=== PATIENT | female | born 1945 | race Caucasian/White ===

== ENCOUNTER 2021-08-01 14:46 | Inpatient (IN) | payer MEDICARE, MEDICAID ==
[~2021-08-01] VITALS: Ht 160 cm; Wt 60.1 kg
[2021-08-01] MEDS ORDERED: LACT1CAP6 PO (16:49)
[2021-08-01] MEDS ORDERED: IBUP400T18 PO (16:49)
[2021-08-01] MEDS ORDERED: MUPI15CR8 TP (16:49)
[2021-08-01] MEDS ORDERED: MINE50OI TP (16:49)
[2021-08-01] MEDS ORDERED: LEVO75TA5 PO (16:49)
[2021-08-01] MEDS ORDERED: OLAN5TAB67 PO (16:49)
[2021-08-02] MEDS ORDERED: OLANZapine 5 MG TABLET PO PRN ×2 (16:45→23:00)
[2021-08-02] MEDS ORDERED: MAGNESIUM HYDROXIDE 2,400 MG/30 ML ORAL.SUSP. PO PRN (16:45)
[2021-08-02] MEDS ORDERED: MAG HYDROX/AL HYDROX/SIMETH 30 ML ORAL.SUSP PO PRN (16:45)
[2021-08-02] MEDS ORDERED: METHYL SALICYLATE/MENTHOL TOPICAL OINTMENT 57GM TUBE. TP PRN (16:45)
[2021-08-02] MEDS ORDERED: IBUPROFEN 600 MG TABLET. PO PRN (16:45)
[2021-08-02 17:24] VITALS: BP 126/71
--- NOTE | 2021-08-02 18:19 | NUR ---
Admission Note with Justification for Admission to [facility] Patient admitted to [facility] for protective oversight for emergency stabilization of acute psychiatric crisis. Pt admitted from: [facility] Mode of arrival: POV Accompanied By: Family Precipitating behaviors that initiated intake and admission: Agitation, attempting to elope, resisting cares/ADLs, yelling at staff, layering clothing Description of failure of out patient attempts at stabilization in previous setting list behavior and medication trials: Daily IM Zyprexa, outpatient psych, redirection Behaviors and assessment findings upon admission: Pt highly agitated and confused. She refuses assessments and will not answer staff questions d/t being fixated on her belongings being locked and secured in her closet. She further refuses assessment because "I will only talk to a Dr." She is very defiant and will not follow staff instructions. Pt has significant cellulitis on her BLE that is weeping and bleeding. Pictures taken, wound consult entered. Pt highly somatic, when her LLE is touched in the slightest she will scream loudly and hysterically and claim she is being hurt because she has a "broken pelvis." Per daughter/DPOA, pt has hx of pelvic fx that was discovered February 2021 but radiology report suggests that the fx is "old and resolved." Pt is not receptive to education regarding the unit and procedures. Plan of care continues, will pass to next shift. Plan: Admit for protective oversight for adjustment and stabilization of medications, behaviors and mood. Intense treatment regimen including groups, medication adjustments, therapy, consistent regimen for ADL's, self care, and sleep hygiene. Daily monitoring by Inpatient staff, Psychiatry, and Medical Physician.
--- NOTE | 2021-08-02 18:50 | NUR ---
Pt highly agitated while dressings are applied to the RLE wounds. She keeps scratching vigorously at her legs, skin flakes flying everywhere. She screams in a garbled language when agitated. Per daughter, pt does not speak any languages other than Gabonese.
[2021-08-02] MEDS ORDERED: FLU VACC QUAD 21-22 (6MOS+) PF 0.5 ML SYRINGE. VAX IM ONE (19:00)
[2021-08-02 19:12] LABS: BASO % 0 % (0-3); EOS # 0.1 x10^3/uL (0.0-0.7); EOS % 2 % (0-3); HEMATOCRIT 34.1 % (36.0-47.0); HEMOGLOBIN 11.4 g/dL (12.0-15.5); LYMPH # 1.5 x10^3/uL (1.0-4.8); LYMPH % 20 % (24-48); MEAN CORPUSCULAR HEMOGLOBIN 30 pg (25-35); MEAN CORPUSCULAR HGB CONC 33 g/dL (31-37); MEAN CORPUSCULAR VOLUME 89 fL (79-100); MONO # 0.7 x10^3/uL (0.0-1.1); MONO % 9 % (0-9); NEUT # 5.3 x10^3uL (1.8-7.7); NEUT % 69 % (31-73); PLATELET COUNT 313 x10^3/uL (140-400); RED BLOOD COUNT 3.83 x10^6/uL (3.50-5.40); WHITE BLOOD COUNT 7.7 x10^3/uL (4.0-11.0)
[2021-08-02 19:26] LABS: ALBUMIN 3.3 g/dL (3.4-5.0); GFR 53.8; POTASSIUM 3.8 mmol/L (3.5-5.1); TOTAL BILIRUBIN 0.2 mg/dL (0.2-1.0); TOTAL PROTEIN 6.6 g/dL (6.4-8.2)
[2021-08-02] MEDS: MINERAL OIL/PETROLATUM TOPICAL CREAM 113GM JAR. TP SCH (20:32)
--- NOTE | 2021-08-02 21:09 | EKG ---
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
--- NOTE | 2021-08-02 21:55 | PDOC ---
Exam Note: Prasanna Note: Please also refer to the separate dictated note~for this date of service dictated separately.~Patient seen individually. Discussed the patient with Nursing staff reviewed the chart.~Reviewed interim history and current functioning. Reviewed vital signs,~Labs/ Radiology~and current medications noted below. Continue current treatment with the changes noted in the dictated addendum note Assessment: Vital Signs/I&O: Vital Signs Date Time Temp Pulse Resp B/P (MAP) Pulse Ox O2 Delivery O2 Flow Rate FiO2 08/02/21 17:24 97.0 65 19 126/71 (89) 94 Labs: Laboratory Tests Test 08/02/21 18:51 White Blood Count 7.7 x10^3/uL (4.0-11.0) Red Blood Count 3.83 x10^6/uL (3.50-5.40) Hemoglobin 11.4 g/dL (12.0-15.5) L Hematocrit 34.1 % (36.0-47.0) L Mean Corpuscular Volume 89 fL (79-100) Mean Corpuscular Hemoglobin 30 pg (25-35) Mean Corpuscular Hemoglobin Concent 33 g/dL (31-37) Red Cell Distribution Width 16.0 % (11.5-14.5) H Platelet Count 313 x10^3/uL (140-400) Neutrophils (%) (Auto) 69 % (31-73) Lymphocytes (%) (Auto) 20 % (24-48) L Monocytes (%) (Auto) 9 % (0-9) Eosinophils (%) (Auto) 2 % (0-3) Basophils (%) (Auto) 0 % (0-3) Neutrophils # (Auto) 5.3 x10^3uL (1.8-7.7) Lymphocytes # (Auto) 1.5 x10^3/uL (1.0-4.8) Monocytes # (Auto) 0.7 x10^3/uL (0.0-1.1) Eosinophils # (Auto) 0.1 x10^3/uL (0.0-0.7) Basophils # (Auto) 0.0 x10^3/uL (0.0-0.2) Erythrocyte Sedimentation Rate 14 (0-25) D-Dimer (Shirley) 0.93 mg/L (0.00-0.50) H Sodium Level 142 mmol/L (136-145) Potassium Level 3.8 mmol/L (3.5-5.1) Chloride Level 106 mmol/L (98-107) Carbon Dioxide Level 27 mmol/L (21-32) Anion Gap 9 (6-14) Blood Urea Nitrogen 18 mg/dL (7-20) Creatinine 1.0 mg/dL (0.6-1.0) Estimated GFR (Cockcroft-Gault) 53.8 BUN/Creatinine Ratio 18 (6-20) Glucose Level 123 mg/dL (70-99) H Calcium Level 9.0 mg/dL (8.5-10.1) Magnesium Level 2.0 mg/dL (1.8-2.4) Total Bilirubin 0.2 mg/dL (0.2-1.0) Aspartate Amino Transferase (AST) 13 U/L (15-37) L Alanine Aminotransferase (ALT) 17 U/L (14-59) Alkaline Phosphatase 101 U/L (46-116) Total Protein 6.6 g/dL (6.4-8.2) Albumin 3.3 g/dL (3.4-5.0) L Albumin/Globulin Ratio 1.0 (1.0-1.7) Current Medications: I have reviewed the current psychotropics carefully including drug interactions. Risk benefit ratio favors no change other than as noted in my dictated progress note. Diagnosis: Problems: (1) Schizoaffective disorder, bipolar type ENOCH YBARRA MD Aug 02, 2021 21:55
--- NOTE | 2021-08-02 23:59 | NUR ---
Patient is in the [facility] on assumption of care, walking back and forth with her walker. When this nurse went to assess the patient and asked her name, she stated "What's your name?" in a sarcastic tone of voice. When this nurse answered and again asked the patient for her name, she stated "Well, aren't you stupid if you don't know my name? What kind of dumbass are you?" Communicating with patient is very difficult due to her being very IGIUGIG as well as resistant to answering any questions posed to her. Patient removed her wound dressing that the day shift RN had placed. When this nurse offered a new dressing, patient declined, demanding "No gauze, I only want bandaids." This nurse attempted to explain to patient that normal sized bandaid would not cover the area, and offered a foam dressing. She refused. Patient later asked for some ibuprofen, and took it whole without issue.
--- NOTE | 2021-08-03 03:58 | NUR ---
Patient continued to pace the west hallway back and forth, stopping to tap on the nurses station window every so often to ask about going to the chapel, and making snarky comments to staff. She demanded to see a doctor, asking "So, when will I see the doctor for my legs? No one has even bothered to look at them." This nurse told the patient that the medical doctor rounds in the morning, and reminded her that both myself and the day shift RN had looked at her legs and attempted to clean and dress them, and that she had refused. She stated "Well, if you would look at the [facility] pictures, you would see. If you look at my legs right now, you can see that I took care of it myself with just a washcloth. All the dirt is gone now." This nurse informed the patient that I had looked at the photos and offered several times to clean and redress the patient's wounds, and that a wound care consult had been placed. Patient had indeed, "exfoliated" her lower legs, irritating the wounds that are already present. Offered her the foam bandages again, and she again stated "I don't want no gauze, it's too much stuff on my legs." This nurse explained that the foam bandages are basically a large bandaid, and patient agreed to allow this nurse to place them on her. She went to her room and laid in bed for approximately 45 minutes, and is now up again, walking back and forth in the halls. Will continue to monitor.
[2021-08-03] MEDS: LEVOTHYROXINE 75 MCG TABLET PO SCH (05:07)
[2021-08-03 06:24] VITALS: BP 137/78
[2021-08-03] MEDS: LACTOBACILLUS RHAMNOSUS GG 1 CAPSULE. PO SCH (09:00)
[2021-08-03] MEDS: MINERAL OIL/PETROLATUM TOPICAL CREAM 113GM JAR. TP SCH (09:00)
[2021-08-03] MEDS ORDERED: MUPIROCIN 2% TOPICAL OINTMENT 22GM TUBE. TP SCH (09:00)
--- NOTE | 2021-08-03 12:37 | RAD ---
EXAM: Pelvis, single view. HISTORY: Fracture COMPARISON: 03/18/2021 FINDINGS: A frontal view of the pelvis is obtained. There is slight callus formation surrounding a mi ldly displaced fractures involving the right inferior pubic ramus and anterior pubic bone. There is s clerosis involving the right sacrum likely due to partial healing of a previously demonstrated sacral fracture. There is lumbar scoliosis and degenerative change throughout the lumbar spine. There are s urgical clips within the pelvis. There is suspected bone demineralization. IMPRESSION: 1. Callus formation surrounding suspected healing inferior right pubic ramus and anterior right pubic bone fractures. 2. Suspected healing or healed right sacral fracture. 3. Scoliosis and degenerative change involving the visualized lumbar spine, not formally assessed on this exam. 4. Bone demineralization. Electronically signed by: Johanny Cobian MD (08/03/2021 12:34 PM) [id number]
[2021-08-03 13:17] LABS: THYROID STIM HORMONE (TSH) 105.9 uIU/mL (0.358-3.740)
--- NOTE | 2021-08-03 14:33 | NUR ---
RN Day Shift Note: Pt presents with an assertive/aggravated/demanding affect. Pt makes her thoughts and concerns known to staff. Pt has continuously asked throughout the shift when the Doctor is coming to look at her legs. Pt has been told, he will be coming today, but we do not know what time and we will let her known as soon as he is here. Pt showed me her legs and reported that she had cleaned them up. Pt is noted to spend time walking the hallway and at times knocks on the nurses station assertively, leaning towards aggressively to ask when the doctor is coming. Pt spoke with her daughter 3 times today on the phone and her son one time. It is noted that when pt was on phone with daughter she was yelling at her throughout the conversation. Pt stated to her daughter on the phone, "I don't like the nurses, I don't like the food, but I like the psychiatrist." Later pt requested to call her daughter for the 3rd time because she wanted to apologize to her. Pt called and apologized. When speaking to pt, she repeatedly says, "what?" to staff. Pt continuously tells staff she cannot hear us and we will repeat ourselves. Pt speaks with an undetermined accent on occasion when she gets more animated or excitable. Pt's Vitals are WNL. Pt slept zero hours last night. Pt is not medication compliant and refused all medications. Pt was very adamant that she does not want to take any medications. Will continue to monitor.
[2021-08-03 16:12] VITALS: BP 116/60
[2021-08-03 17:56] LABS: CLARITY,URINE CLOUDY; COLOR,URINE YELLOW
[2021-08-03 17:57] LABS: BACTERIA,URINE MANY /HPF (0-FEW); BILIRUBIN,URINE NEG (NEG); GLUCOSE,URINE NEG (NEG); NITRITE,URINE POS (NEG); SQUAMOUS EPITHELIAL CELL,UR FEW /LPF; UROBILINOGEN,URINE 0.2 mg/dL (0.2 mg/dL)
[2021-08-03] MEDS: AMMONIUM LACTATE 12% TOPICAL LOTION 226GM BOTTLE. TP SCH (19:28)
[2021-08-03] MEDS ORDERED: MINERAL OIL/PETROLATUM TOPICAL CREAM 113GM JAR. TP PRN (19:30)
[2021-08-03] MEDS: MIRTAZAPINE 7.5 MG TABLET. PO SCH (20:42)
[2021-08-03] MEDS: DIVALPROEX 125 MG CAP.SPRINK PO SCH (20:42)
[2021-08-03] MEDS: ACETAMINOPHEN 325 MG TABLET PO PRN (21:17)
--- NOTE | 2021-08-03 23:24 | CONS ---
DATE OF CONSULTATION: 08/03/2021 REASON FOR CONSULTATION: Medical management. HISTORY OF PRESENT ILLNESS: The patient is a 75-year-old female patient, a resident at [facility] who admitted to this facility on account of being agitated, attempting to elope, resisting cares and ADLs, yells at staff, "Get away from me," layering clothes, all this in a background of schizoaffective disorder, bipolar with psychosis. PAST MEDICAL HISTORY: Significant for hypothyroidism, cellulitis, bilateral lower extremity lymphedema, recurrent falls, sacral fracture, muscle weakness. PAST PSYCHIATRIC HISTORY: Significant for bipolar disorder, schizophrenia, and dementia. PAST SURGICAL HISTORY: Significant for total abdominal hysterectomy, bilateral salpingo-oophorectomy. ALLERGIES: She has no known drug allergies. MEDICATIONS: She is currently on the following medication: She is on ibuprofen 600 mg every 6 hours, olanzapine 5 mg every 4 hours, lactobacillus acidophilus for probiotic 1 capsule once a day, levothyroxine sodium 75 mcg once a day, mupirocin cream apply topically daily, Aquaphor healing ointment apply topically twice a day. FAMILY HISTORY: Noncontributory. SOCIAL HISTORY: She is a resident at [facility]. She has grownup children. According to her, she does not smoke, drink alcohol, or use recreational drugs. PHYSICAL EXAMINATION: GENERAL: When I examined her this afternoon, she was sitting comfortably in her chair in no apparent respiratory distress. She was pale, but no jaundice, cyanosis or thyromegaly. No jugular venous distention. No limb edema. VITAL SIGNS: Her heart rate was 79, blood pressure is 137/78, temperature was 97.2, respiratory rate was 18 and oxygen saturation was 95% on room air. HEAD, EYES, EARS, NOSE, AND THROAT: Normocephalic, atraumatic. NECK: Supple. HEART: Normal first and second heart sounds, no gallop or murmur. CHEST: Clear to auscultation, no crepitation or rhonchi. ABDOMEN: Distended, soft, nontender. NEUROLOGIC: She was hard of hearing, but otherwise all her cranial nerves intact. She moves extremities without difficulty. She ambulates with a walker. EXTREMITIES: Examination of both lower extremities showed no clubbing or cyanosis. She has bilateral lower extremity lymphedema that extends above the knee joint level. She has also some open skin areas on the outer aspect of right leg covered with dressing. LABORATORY DATA: Her lab work showed a white cell count of 7700, hemoglobin 11, hematocrit 34, MCV 89, and platelet count of 313,000 with normal manual differential. Her chemistry showed a serum sodium of 142, potassium 3.8, chloride 106, bicarbonate 27. Her anion gap was 9, BUN 18, creatinine 1, estimated GFR was 53 mL per minute. Her glucose 123, calcium was 9, magnesium 2. Her serum iron was 48. Serum TIBC was 330 and iron saturation was 15. Her total bilirubin, AST, ALT, alkaline phosphatase were normal. Total protein 6.6, albumin 3.3. Her serum triglycerides 116, total cholesterol was 161, LDL cholesterol was 74, VLDL was 23, HDL cholesterol was 64 with a cholesterol to HDL cholesterol ratio was 2 and TSH was 105.9, which is extremely high. Her x-ray of the pelvis showed callus formation surrounding suspected healing of the inferior right pubic ramus and anterior right pubic bone fracture. She also has suspected healing or healed right sacral fracture, scoliosis and degenerative changes involving the visualized lumbar spine, not formally assessed this exam and bone demineralization. ASSESSMENT: In summary, this is a 75-year-old female patient, a resident at [facility], who was admitted to this facility on account of being agitated, attempting to elope, resisting to care and ADLs, yells at staff, "Get away from me," layering closed; all this in a background of schizoaffective disorder, bipolar with psychosis. Medically, the patient has severe hypothyroidism with a TSH of 105. It is difficult to know whether she is noncompliant with her medications or she is on adequate dose of levothyroxine. PLAN: My plan is to check her, T3, T4, free T4 and if they are all low, we will make sure that the patient gets it in time, usually an hour before breakfast and repeat her labs again in one week's time. She has severe bilateral lower extremity lymphedema with some open skin areas with dry skin. The dryness can be treated with AmLactin or Lac-Hydrin. I will definitely consult [facility] team to evaluate her and she might eventually benefit from lymphedema wrap. Thank you, Dr. Alan for allowing me to participate in the care of this patient. AMM/FABIOI DR: Beny TID: [id number]
--- NOTE | 2021-08-03 23:59 | NUR ---
Patient is in her room on assumption of care, sitting on the side of her bed. She is much more pleasant in her interactions as opposed to last evening. She was compliant with assessments, but continues to be suspicious of medications unless she specifically asks for them. Patient scheduled to receive a shower this evening, so she was premedicated with PRN Zydis d/t her resistant behaviors throughout all of last NOC shift. Crushed and hidden in between the two halves of a cheese cracker. Patient consumed it without issue. Cooperative with shower and care. Patient asked if she liked to drink hot tea before bed, and she answered "Yes, but no sugar or nothing, just plain." New medications prescribed by were crushed and melted into the tea, and patient drank all of it. She asked for assistance to lift her legs into the bed, and requested PRN Tylenol for bilateral leg pain. PRN was taken whole, with good effect. Patient appears to be sleeping comfortably at present time. Will continue to monitor.
[2021-08-04] MEDS: LEVOTHYROXINE 75 MCG TABLET PO SCH (05:06)
[2021-08-04 05:38] LABS: THYROXINE 1.2 ug/dL (4.5-12.0)
[2021-08-04 06:26] VITALS: BP 147/81
[2021-08-04] MEDS: risperiDONE ODT 0.5 MG TAB.RAPDIS. PO SCH (09:00)
[2021-08-04] MEDS: LACTOBACILLUS RHAMNOSUS GG 1 CAPSULE. PO SCH (09:00)
[2021-08-04] MEDS: AMMONIUM LACTATE 12% TOPICAL LOTION 226GM BOTTLE. TP SCH ×3 (09:00→21:00)
--- NOTE | 2021-08-04 10:32 | PDOC ---
Exam Note: Prasanna Note: Late entry for 08/03/21. Please also refer to the separate dictated note~for this date of service dictated separately.~Patient seen individually. Discussed the patient with Nursing staff reviewed the chart.~Reviewed interim history and current functioning. Reviewed vital signs,~Labs/ Radiology~and current medicat ions noted below. Continue current treatment with the changes noted in the dictated addendum note Assessment: Vital Signs/I&O: Vital Signs Date Time Temp Pulse Resp B/P (MAP) Pulse Ox O2 Delivery O2 Flow Rate FiO2 08/04/21 06:26 97.6 76 20 147/81 (103) 96 Room Air I & O 08/03/21 08/03/21 08/04/21 15:00 23:00 07:00 Intake Total 300 ml 300 ml Balance 300 ml 300 ml Labs: Laboratory Tests Test 08/03/21 15:40 08/04/21 07:34 Urine Collection Type Unknown Urine Color Yellow Urine Clarity Cloudy Urine pH 6.5 Urine Specific [place] 1.025 Urine Protein Neg (NEG-TRACE) Urine Glucose (UA) Neg mg/dL (NEG) Urine Ketones (Stick) Neg mg/dL (NEG) Urine Blood Trace (NEG) Urine Nitrite Pos (NEG) Urine Bilirubin Neg (NEG) Urine Urobilinogen Dipstick 0.2 mg/dL (0.2 mg/dL) Urine Leukocyte Esterase Neg (NEG) Urine RBC 1-2 /HPF (0-2) Urine WBC 11-20 /HPF (0-4) Urine Squamous Epithelial Cells Few /LPF Urine Bacteria Many /HPF (0-FEW) Free Thyroxine 0.36 ng/dL (0.76-1.46) L Current Medications: Meds: Laboratory Tests Test 08/03/21 15:40 08/04/21 07:34 Urine Collection Type Unknown Urine Color Yellow Urine Clarity Cloudy Urine pH 6.5 Urine Specific [place] 1.025 Urine Protein Neg Urine Glucose (UA) Neg mg/dL Urine Ketones (Stick) Neg mg/dL Urine Blood Trace Urine Nitrite Pos Urine Bilirubin Neg Urine Urobilinogen Dipstick 0.2 mg/dL Urine Leukocyte Esterase Neg Urine RBC 1-2 /HPF Urine WBC 11-20 /HPF Urine Squamous Epithelial Cells Few /LPF Urine Bacteria Many /HPF Free Thyroxine 0.36 ng/dL Current Medications Medications (Trade) Dose Ordered Sig/Ervin Route PRN Reason Start Time Stop Time Status Last Admin Dose Admin Ibuprofen (Motrin) 600 mg PRN Q6HRS PRN PO PAIN 08/02/21 16:45 08/03/21 16:14 DC 08/02/21 23:17 Levothyroxine Sodium (Synthroid) 75 mcg DAILY06 PO 08/03/21 06:00 08/04/21 05:06 Olanzapine (ZyPREXA) 5 mg PRN Q4HRS PRN PO AGITATION 08/02/21 16:45 08/02/21 22:47 DC Lactobacillus Rhamnosus (Culturelle) 1 cap DAILY PO 08/03/21 09:00 Multi-Ingred Cream/Lotion/Oil/ Oint (Hydrocerin) 1 rachel BID TP 08/02/21 21:00 08/03/21 19:28 DC Mupirocin (Bactroban) 1 rachel DAILY TP 08/03/21 09:00 08/03/21 16:16 DC Acetaminophen (Tylenol) 650 mg PRN Q6HRS PRN PO MILD PAIN / TEMP > 100.3'F 08/02/21 16:45 08/03/21 21:17 Multi-Ingredient Ointment (Analgesic [place]) 1 rachel PRN QID PRN TP MUSCLE PAIN 08/02/21 16:45 Al Hydroxide/Mg Hydroxide (Mylanta Plus Xs) 15 ml PRN AFTMEALHC PRN PO DYSPEPSIA 08/02/21 16:45 Magnesium Hydroxide (Milk Of Magnesia) 2,400 mg PRN QHS PRN PO CONSTIPATION 08/02/21 16:45 Influenza Virus Vaccine Quadrival (Flulaval Quad [id number] Syringe) 0.5 ml ONCE ONCE VAX IM 08/02/21 19:00 08/02/21 19:01 DC 08/03/21 12:43 Olanzapine (ZyPREXA) 2.5 mg PRN Q2HRS PRN PO AGITATION 08/02/21 23:00 08/02/21 23:24 DC Olanzapine (ZyPREXA ZYDIS) 2.5 mg PRN Q2HR PRN PO PSYCHOSIS 08/02/21 23:30 08/03/21 19:28 Lactic Acid (Lac-Hydrin) 1 rachel BID TP 08/03/21 21:00 08/03/21 19:28 Multi-Ingred Cream/Lotion/Oil/ Oint (Hydrocerin) 1 rachel PRN BID PRN TP DRY SKIN 08/03/21 19:30 Mirtazapine (Remeron) 7.5 mg QHS PO 08/03/21 21:00 08/03/21 20:42 Divalproex Sodium (Depakote Sprinkles) 500 mg QHS PO 08/03/21 21:00 08/03/21 20:42 Trazodone HCl (Desyrel) 50 mg PRN QHS PRN PO INSOMNIA, MAY REPEAT X1 08/03/21 20:45 Risperidone (RisperDAL M) 0.5 mg DAILY PO 08/04/21 09:00 Current Medications Medications (Trade) Dose Ordered Sig/Ervin Route PRN Reason Start Time Stop Time Status Last Admin Dose Admin Lactic Acid (Lac-Hydrin) 1 rachel BID TP 08/03/21 21:00 08/03/21 19:28 Mirtazapine (Remeron) 7.5 mg QHS PO 08/03/21 21:00 08/03/21 20:42 Divalproex Sodium (Depakote Sprinkles) 500 mg QHS PO 08/03/21 21:00 08/03/21 20:42 I have reviewed the current psychotropics carefully including drug interactions. Risk benefit ratio favors no change other than as noted in my dictated progress note. Diagnosis: Problems: (1) Schizoaffective disorder, bipolar type ENOCH YBARRA MD Aug 04, 2021 10:32
--- NOTE | 2021-08-04 14:39 | NUR ---
Nursing notes: Patient in her room for morning medications & assessment, she refused medications & assessment. She refused breakfast and threw tea at staff. She was mad r/t not being able to have all of her clothes at once. Patient also refused creams & treatment to BLE, as well as taking off current bandages. She refused to talk to this nurse and acted as if she could not hear. Patient frequently irritable and demanding towards staff. She does not interact with peers. She ambulates in [place] & bedroom with walker. She is currently in [place] sitting in chair with eyes closed. Will continue to monitor.
--- NOTE | 2021-08-04 14:47 | HP ---
DATE OF SERVICE: 08/04/2021 ADMIT DATE: 08/02/2021 PSYCHIATRIC ADMISSION HISTORY AND EVALUATION IDENTIFYING DATA: The patient is a 75-year-old female, referred to us from [facility] with an acute exacerbation of her schizoaffective disorder bipolar type with psychotic features. She has been agitated, attempting to elope, resistive to cares and ADLs, yelling at staff to "get away from me." She was layering her clothes. Behaviors were deemed unmanageable, had failed outpatient psychiatric interventions at the facility resulting in this referral. CHIEF COMPLAINT: "I used to see Dr. Enciso, a psychiatrist, for 2 or 3 years. I have a diagnosis of bipolar disorder. I have been on no medications that help me." HISTORY OF PRESENT ILLNESS: The patient has a long history of schizoaffective disorder, bipolar type. She has had extensive outpatient treatment and records will be obtained. Nevertheless, she has been at the above facility for some time, recently having an acute exacerbation with psychotic symptoms, worsening mood swings, sleep and appetite changes and behaviors that were disruptive in her living environment as noted above. No active suicidal or homicidal ideation, but she has been extremely intrusive, disruptive. PAST PSYCHIATRIC HISTORY: As above. MEDICAL HISTORY: Muscle weakness, unsteady gait, hypothyroidism, short-term memory deficits, cellulitis, recurrent falls, edema, history of sacral fracture. DIET: Regular. Accu-Cheks negative. ALLERGIES: Negative. CODE STATUS: Full code. Takes medications whole. UA, reflex to culture. FAMILY HISTORY: Noncontributory. SOCIAL HISTORY: No alcohol, drug abuse, physical, sexual or elder abuse. She is not known to be a perpetrator. REACTION TO HOSPITALIZATION: The patient is accepting of it. ASSETS: Supportive living at the above facility. Ambulates with a walker. CURRENT PSYCHOTROPICS: Zyprexa p.r.n. REVIEW OF SYSTEMS: Ambulation impaired with walker. No CV, , pulmonary, eye, ENT system symptoms on review. MENTAL STATUS EXAM: The patient is reasonably oriented. Speech coherent, pressured. Abstraction fair. Computation impaired. Language function intact. Mood and affect labile, somewhat grandiose. No active suicidal or homicidal ideation. She is quite distractible, paranoid, suspicious. LABORATORY DATA: Reviewed. IMPRESSION: Schizoaffective disorder bipolar type, mixed with psychotic features; anxiety disorder, unspecified; impulse control disorder, unspecified. Rest as above. PLAN: Admit to geropsychiatry unit at [facility]. I will see the patient daily individually. Medical followup -- Dr. Nam/Dr. Phelps. Continue patient on her current psychotropics. Check thyroid profile. Consider Depakote and Risperdal for treating her schizoaffective disorder. We will make these decisions post-baseline assessment. ESTIMATED LENGTH OF STAY: 10-12 days. DISPOSITION PLAN: Back to senior living when stable. ROCIO DR: Sarahi TID: [id number]
[2021-08-04] MEDS: MIRTAZAPINE 7.5 MG TABLET. PO SCH ×2 (19:39→21:00)
[2021-08-04] MEDS: DIVALPROEX 125 MG CAP.SPRINK PO SCH ×2 (19:39→21:00)
[2021-08-04] MEDS: traZODone 50 MG TABLET. PO PRN (19:40)
[2021-08-04] MEDS: ACETAMINOPHEN 325 MG TABLET PO PRN (23:56)
--- NOTE | 2021-08-04 23:59 | NUR ---
Patient is in her room on assumption of care, asleep in bed. When she woke up, this nurse went in to assess her and give her medications. She refused assessments, and refused her hot tea. (which had meds crushed in it.) She was belligerent, yelling, demanding, irritable. She returned to her bed after using the bathroom, and told this nurse "Get outta here, get out now!" Later, she asked for some Tylenol. This nurse brought it to her, and put a PRN Zydis in a small amount of water for her to take it. She took the medications, and asked "How do I know what this is?" Patient assured it was Tylenol. She took one and drank a small sip of the water, and then she refused to take the other and refused to drink any more of the water, stating, "This don't taste right." Demanded that this nurse call her daughter and tell her, "I don't want to stay here, I don't want to go back to [facility], I want to go to [facility], where the nurses aren't assholes." Patient is currently awake in bed. Will continue to monitor.
[2021-08-05 01:08] LABS: HEMOGLOBIN A1C 5.4 % (4.8-5.6)
[2021-08-05] MEDS: risperiDONE ODT 0.5 MG TAB.RAPDIS. PO SCH (05:07)
[2021-08-05] MEDS: LEVOTHYROXINE 75 MCG TABLET PO SCH (05:07)
[2021-08-05 05:09] LABS: THYROXINE 2.1 ug/dL (4.5-12.0)
--- NOTE | 2021-08-05 06:05 | NUR ---
Patient approached for vital signs and Synthroid administration. Patient already agitated and irritable, making rude faces and comments to several staff members. Due to patient continued refusal of oral medication, this nurse thought it prudent to try to give her 0900 Risperdal dissolved in some water with her synthroid. (she is usually compliant with that medication.) When asked if she would take it, she replied "Yeah, I'll take the thyroid pill. As long as it's not in two pieces like it was yesterday, you dummy." When this nurse went to open the thyroid pill, patient said loudly "That's not a thyroid pill!!" Attempted to show her the packaging and she swatted the pill out of this nurse's hand. PRN Zhelen, 0900 Risperdal, and Synthroid dissolved in small amount of water and given SL with staff assist of 3. During that process, patient kicked and ripped open a scab on her right lateral upper ankle. Cleaned and foam bandage applied. Patient returned to bed and is currently asleep.
[2021-08-05] MEDS: LACTOBACILLUS RHAMNOSUS GG 1 CAPSULE. PO SCH (08:45)
[2021-08-05] MEDS: AMMONIUM LACTATE 12% TOPICAL LOTION 226GM BOTTLE. TP SCH ×4 (08:45→21:00)
--- NOTE | 2021-08-05 08:45 | NUR ---
Patient refused morning medications. She stated she would only allow me to put the lotion on her legs if a doctor said it was okay. Informed patient that a doctor ordered the lotion, she continues to refuse. Patient refused assessment, stating only a doctor can listen to heart and lung sounds. Will continue to monitor and report to oncoming shift.
--- NOTE | 2021-08-05 08:57 | PDOC ---
Exam Note: Prasanna Note: This note is a late entry for 08/03/2021 covers elements not covered in my initial note. Subjective: The patient was seen individually in the evening of 08/03/2021 with Ramandeep SWIFT, discussed and reviewed the chart. The patient slept 0 hours previous night. Patient remains paranoid, more clear in her speech, still pressured speech less than before. She does have an accent. We reviewed her past history of treatment on lithium by Dr. Enciso for about 2 years. TSH is quite elevated 10.5. We will defer to Dr. Nam and this could have been a complication of lithium though unsure of this. Dr. Nam did stop her of ibuprofen. Review of Systems: No CV, , pulmonary, eye system symptoms on review. Impaired ambulation. Hard of hearing. Mental Status Exam: The patient is reasonably oriented. She has been anxious, restless, repeatedly knocking at the nursing window. Speech coherent. Abstraction fair. Computation impaired. Language function intact. Attention span short. Mood and affect somewhat anxious, labile. Laboratory Data: Reviewed. Impression: Schizoaffective disorder bipolar type, mixed with psychotic features. Anxiety disorder unspecified. Impulse control disorder unspecified. Mild cognitive impairment. Hypothyroidism. Plan: Start Remeron 7.5 mg h.s. for her insomnia, trazodone 50 mg h.s. p.r.n. We may repeat x1, Risperdal 0.5 mg p.o. h.s. for her marked paranoia part of her schizoaffective disorder and Depakote Sprinkle 500 mg p.o. h.s. Check CBC, CMP, valproic acid level, and ammonia level in 3 days. Make further adjustments as clinically indicated. Reviewed drug interactions and risk-benefit ratio. Assessment: Vital Signs/I&O: Vital Signs Date Time Temp Pulse Resp B/P (MAP) Pulse Ox O2 Delivery O2 Flow Rate FiO2 08/04/21 06:26 97.6 76 20 147/81 (103) 96 Room Air I & O 08/04/21 08/04/21 08/05/21 14:59 22:59 06:59 Intake Total 200 ml 120 ml Balance 200 ml 120 ml Current Medications: Meds: Current Medications Medications (Trade) Dose Ordered Sig/Ervin Route PRN Reason Start Time Stop Time Status Last Admin Dose Admin Ibuprofen (Motrin) 600 mg PRN Q6HRS PRN PO PAIN 08/02/21 16:45 08/03/21 16:14 DC 08/02/21 23:17 Levothyroxine Sodium (Synthroid) 75 mcg DAILY06 PO 08/03/21 06:00 08/05/21 05:07 Olanzapine (ZyPREXA) 5 mg PRN Q4HRS PRN PO AGITATION 08/02/21 16:45 08/02/21 22:47 DC Lactobacillus Rhamnosus (Culturelle) 1 cap DAILY PO 08/03/21 09:00 Multi-Ingred Cream/Lotion/Oil/ Oint (Hydrocerin) 1 rachel BID TP 08/02/21 21:00 08/03/21 19:28 DC Mupirocin (Bactroban) 1 rachel DAILY TP 08/03/21 09:00 08/03/21 16:16 DC Acetaminophen (Tylenol) 650 mg PRN Q6HRS PRN PO MILD PAIN / TEMP > 100.3'F 08/02/21 16:45 08/04/21 23:56 Multi-Ingredient Ointment (Analgesic [place]) 1 rachel PRN QID PRN TP MUSCLE PAIN 08/02/21 16:45 Al Hydroxide/Mg Hydroxide (Mylanta Plus Xs) 15 ml PRN AFTMEALHC PRN PO DYSPEPSIA 08/02/21 16:45 Magnesium Hydroxide (Milk Of Magnesia) 2,400 mg PRN QHS PRN PO CONSTIPATION 08/02/21 16:45 Influenza Virus Vaccine Quadrival (Flulaval Quad [id number] Syringe) 0.5 ml ONCE ONCE VAX IM 08/02/21 19:00 08/02/21 19:01 DC 08/03/21 12:43 Olanzapine (ZyPREXA) 2.5 mg PRN Q2HRS PRN PO AGITATION 08/02/21 23:00 08/02/21 23:24 DC Olanzapine (ZyPREXA ZYDIS) 2.5 mg PRN Q2HR PRN PO PSYCHOSIS 08/02/21 23:30 08/05/21 05:16 Lactic Acid (Lac-Hydrin) 1 rachel BID TP 08/03/21 21:00 08/03/21 19:28 Multi-Ingred Cream/Lotion/Oil/ Oint (Hydrocerin) 1 rachel PRN BID PRN TP DRY SKIN 08/03/21 19:30 Mirtazapine (Remeron) 7.5 mg QHS PO 08/03/21 21:00 08/03/21 20:42 Divalproex Sodium (Depakote Sprinkles) 500 mg QHS PO 08/03/21 21:00 08/03/21 20:42 Trazodone HCl (Desyrel) 50 mg PRN QHS PRN PO INSOMNIA, MAY REPEAT X1 08/03/21 20:45 Risperidone (RisperDAL M) 0.5 mg DAILY PO 08/04/21 09:00 08/05/21 05:07 Current Medications Medications (Trade) Dose Ordered Sig/Ervin Route PRN Reason Start Time Stop Time Status Last Admin Dose Admin Risperidone (RisperDAL M) 0.5 mg DAILY PO 08/04/21 09:00 08/05/21 05:07 I have reviewed the current psychotropics carefully including drug interactions. Risk benefit ratio favors no change other than as noted in my dictated progress note. Diagnosis: Problems: (1) Bipolar disorder, curr episode mixed, severe, with psychotic features (2) Anxiety disorder, unspecified (3) Impulse control disorder, unspecified (4) Schizoaffective disorder, bipolar type (5) Hypothyroidism ENOCH YBARRA MD Aug 05, 2021 08:57
--- NOTE | 2021-08-05 09:14 | PDOC ---
Exam Note: Prasanna Note: Late entry for 08/04/2021. Please also refer to the separate dictated note~for this date of service dictated separately. Discussed the patient with Nursing staff reviewed the chart.~Reviewed interim history and current functioning. Reviewed vital signs,~Labs/ Radiology~and current medications noted below. Continue current treatment with the changes noted in the dictated addendum note Assessment: Vital Signs/I&O: Vital Signs Date Time Temp Pulse Resp B/P (MAP) Pulse Ox O2 Delivery O2 Flow Rate FiO2 08/04/21 06:26 97.6 76 20 147/81 (103) 96 Room Air I & O 08/04/21 08/04/21 08/05/21 15:00 23:00 07:00 Intake Total 200 ml 120 ml Balance 200 ml 120 ml Current Medications: Meds: Current Medications Medications (Trade) Dose Ordered Sig/Ervin Route PRN Reason Start Time Stop Time Status Last Admin Dose Admin Ibuprofen (Motrin) 600 mg PRN Q6HRS PRN PO PAIN 08/02/21 16:45 08/03/21 16:14 DC 08/02/21 23:17 Levothyroxine Sodium (Synthroid) 75 mcg DAILY06 PO 08/03/21 06:00 08/05/21 05:07 Olanzapine (ZyPREXA) 5 mg PRN Q4HRS PRN PO AGITATION 08/02/21 16:45 08/02/21 22:47 DC Lactobacillus Rhamnosus (Culturelle) 1 cap DAILY PO 08/03/21 09:00 Multi-Ingred Cream/Lotion/Oil/ Oint (Hydrocerin) 1 rachel BID TP 08/02/21 21:00 08/03/21 19:28 DC Mupirocin (Bactroban) 1 rachel DAILY TP 08/03/21 09:00 08/03/21 16:16 DC Acetaminophen (Tylenol) 650 mg PRN Q6HRS PRN PO MILD PAIN / TEMP > 100.3'F 08/02/21 16:45 08/04/21 23:56 Multi-Ingredient Ointment (Analgesic [place]) 1 rachel PRN QID PRN TP MUSCLE PAIN 08/02/21 16:45 Al Hydroxide/Mg Hydroxide (Mylanta Plus Xs) 15 ml PRN AFTMEALHC PRN PO DYSPEPSIA 08/02/21 16:45 Magnesium Hydroxide (Milk Of Magnesia) 2,400 mg PRN QHS PRN PO CONSTIPATION 08/02/21 16:45 Influenza Virus Vaccine Quadrival (Flulaval Quad Syringe) 0.5 ml ONCE ONCE VAX IM 08/02/21 19:00 08/02/21 19:01 DC 08/03/21 12:43 Olanzapine (ZyPREXA) 2.5 mg PRN Q2HRS PRN PO AGITATION 08/02/21 23:00 08/02/21 23:24 DC Olanzapine (ZyPREXA ZYDIS) 2.5 mg PRN Q2HR PRN PO PSYCHOSIS 08/02/21 23:30 08/05/21 05:16 Lactic Acid (Lac-Hydrin) 1 rachel BID TP 08/03/21 21:00 08/03/21 19:28 Multi-Ingred Cream/Lotion/Oil/ Oint (Hydrocerin) 1 rachel PRN BID PRN TP DRY SKIN 08/03/21 19:30 Mirtazapine (Remeron) 7.5 mg QHS PO 08/03/21 21:00 08/03/21 20:42 Divalproex Sodium (Depakote Sprinkles) 500 mg QHS PO 08/03/21 21:00 08/03/21 20:42 Trazodone HCl (Desyrel) 50 mg PRN QHS PRN PO INSOMNIA, MAY REPEAT X1 08/03/21 20:45 Risperidone (RisperDAL M) 0.5 mg DAILY PO 08/04/21 09:00 08/05/21 05:07 I have reviewed the current psychotropics carefully including drug interactions. Risk benefit ratio favors no change other than as noted in my dictated progress note. Diagnosis: Problems: (1) Schizoaffective disorder, bipolar type (2) Impulse control disorder, unspecified (3) Anxiety disorder, unspecified (4) Bipolar disorder, curr episode mixed, severe, with psychotic features (5) Hypothyroidism ENOCH YBARRA MD Aug 05, 2021 09:14
--- NOTE | 2021-08-05 10:15 | NUR ---
ACTIVITY THERAPY ASSESSMENT completed based on notes, observation and interview. Pt was laying in her bed during time of assessment. Pt was sarcastic and unwilling to answer assessment questions for PRESS BREAKER. Pt often pretended not to hear what PRESS BREAKER was saying and said "what" but would not acknowledge PRESS BREAKER when she spoke louder. Pt was able to say that she was in [place] and her birthday. When pt was asked the current year pt said fall. PRESS BREAKER said that yes it is fall and the year is 2020. Pt said "oh congratulation you got it" as she began to clap. Pt was resistive to the rest of interview questions. Pt declined magazines for her room. Per notes pt is resistive with assessments and medications. Pt pretends not to hear staff and refuses to answer questions. Initial goal aimed to increase stress management and relaxation skills. Pt will participate in at least three Activity Therapy sessions before discharge.
--- NOTE | 2021-08-05 11:40 | NUR ---
Treatment team update: Pt is eating 50% of meals and averaging four hours of sleep. Pt did not sleep the night of admission but did sleep 7.25 hours last night. Pt is paranoid at times and have appears to be selective with cares and what she hears. Pt picks at her lymphodema wraps, refusing medications and the nursing assessment, saying she will only do things the dr tells her to do. Nursing received consents from pt guardian for the flu vaccine which was given to pt on Friday 08/03. Pt is resistive in answering questions and was sarcastic during the Activity Dept assessment; noted to have poor cooperation. Pt does not want to be here and demanded to be sent to [facility] in [place] because "those nurses understand me better". SW will complete PSA with pt guardian and work with [facility] re: pt discharge back to them.
--- NOTE | 2021-08-05 12:10 | NUR ---
WEEKLY ACTIVITY THERAPY NOTE Date of Admission: 08/02/21 Date of AT Assessment: TBD Precipitating behaviors that initiated intake and admission: Patient was reported to be tearful, not eating, depressed r/t deteriorating physical condition post-stroke, expressing he wants to , threatening staff with cane Goal aimed: TBD Initial Goal: TBD Weekly progress towards goal: NA Group participation level: NA Weekly highlights: arrived on [facility] Behaviors observed: Plan: meet/assess pt Beneficial adaptations: TBD
--- NOTE | 2021-08-05 15:05 | NUR ---
After MD spoke with patient, she allowed me to apply lotion to her legs. Will continue to monitor.
[2021-08-05 15:51] VITALS: BP 119/61
[2021-08-05] MEDS: MIRTAZAPINE 7.5 MG TABLET. PO SCH (20:16)
[2021-08-05] MEDS: DIVALPROEX 125 MG CAP.SPRINK PO SCH ×2 (20:16→21:00)
[2021-08-05] MEDS: traZODone 50 MG TABLET. PO PRN (20:57)
--- NOTE | 2021-08-05 21:50 | PDOC ---
Exam Note: Prsaanna Note: Please also refer to the separate dictated note~for this date of service dictated separately.~Patient seen individually. Discussed the patient with Nursing staff reviewed the chart.~Reviewed interim history and current functioning. Reviewed vital signs,~Labs/ Radiology~and current medications noted below. Continue current treatment with the changes noted in the dictated addendum note Assessment: Vital Signs/I&O: Vital Signs Date Time Temp Pulse Resp B/P (MAP) Pulse Ox O2 Delivery O2 Flow Rate FiO2 08/05/21 15:51 97.8 73 16 119/61 (80) 96 08/04/21 06:26 Room Air I & O 08/04/21 08/04/21 08/05/21 15:00 23:00 07:00 Intake Total 200 ml 120 ml Balance 200 ml 120 ml Current Medications: Meds: Current Medications Medications (Trade) Dose Ordered Sig/Ervin Route PRN Reason Start Time Stop Time Status Last Admin Dose Admin Ibuprofen (Motrin) 600 mg PRN Q6HRS PRN PO PAIN 08/02/21 16:45 08/03/21 16:14 DC 08/02/21 23:17 Levothyroxine Sodium (Synthroid) 75 mcg DAILY06 PO 08/03/21 06:00 08/05/21 05:07 Olanzapine (ZyPREXA) 5 mg PRN Q4HRS PRN PO AGITATION 08/02/21 16:45 08/02/21 22:47 DC Lactobacillus Rhamnosus (Culturelle) 1 cap DAILY PO 08/03/21 09:00 Multi-Ingred Cream/Lotion/Oil/ Oint (Hydrocerin) 1 rachel BID TP 08/02/21 21:00 08/03/21 19:28 DC Mupirocin (Bactroban) 1 rachel DAILY TP 08/03/21 09:00 08/03/21 16:16 DC Acetaminophen (Tylenol) 650 mg PRN Q6HRS PRN PO MILD PAIN / TEMP > 100.3'F 08/02/21 16:45 08/04/21 23:56 Multi-Ingredient Ointment (Analgesic [place]) 1 rachel PRN QID PRN TP MUSCLE PAIN 08/02/21 16:45 Al Hydroxide/Mg Hydroxide (Mylanta Plus Xs) 15 ml PRN AFTMEALHC PRN PO DYSPEPSIA 08/02/21 16:45 Magnesium Hydroxide (Milk Of Magnesia) 2,400 mg PRN QHS PRN PO CONSTIPATION 08/02/21 16:45 Influenza Virus Vaccine Quadrival (Flulaval Quad Syringe) 0.5 ml ONCE ONCE VAX IM 08/02/21 19:00 08/02/21 19:01 DC 08/03/21 12:43 Olanzapine (ZyPREXA) 2.5 mg PRN Q2HRS PRN PO AGITATION 08/02/21 23:00 08/02/21 23:24 DC Olanzapine (ZyPREXA ZYDIS) 2.5 mg PRN Q2HR PRN PO PSYCHOSIS 08/02/21 23:30 08/05/21 05:16 Lactic Acid (Lac-Hydrin) 1 rachel BID TP 08/03/21 21:00 08/05/21 20:17 Multi-Ingred Cream/Lotion/Oil/ Oint (Hydrocerin) 1 rachel PRN BID PRN TP DRY SKIN 08/03/21 19:30 Mirtazapine (Remeron) 7.5 mg QHS PO 08/03/21 21:00 08/05/21 20:16 Divalproex Sodium (Depakote Sprinkles) 500 mg QHS PO 08/03/21 21:00 08/05/21 20:16 Trazodone HCl (Desyrel) 50 mg PRN QHS PRN PO INSOMNIA, MAY REPEAT X1 08/03/21 20:45 08/05/21 20:57 Risperidone (RisperDAL M) 0.5 mg DAILY PO 08/04/21 09:00 08/05/21 05:07 I have reviewed the current psychotropics carefully including drug interactions. Risk benefit ratio favors no change other than as noted in my dictated progress note. Diagnosis: Problems: (1) Schizoaffective disorder, bipolar type (2) Impulse control disorder, unspecified (3) Anxiety disorder, unspecified (4) Bipolar disorder, curr episode mixed, severe, with psychotic features (5) Hypothyroidism ENOCH YBARRA MD Aug 05, 2021 21:50
--- NOTE | 2021-08-05 23:58 | NUR ---
Nursing Note The patient was irritable and agitated this shift. The patient was argumentative during all interactions with this nurse. The patient received medication crushed in apple juice. The patient refused all assessments. The patient is currently sleeping in her room.
[2021-08-06 05:43] VITALS: BP 141/76
[2021-08-06] MEDS: LEVOTHYROXINE 75 MCG TABLET PO SCH (05:53)
[2021-08-06] MEDS: risperiDONE ODT 0.5 MG TAB.RAPDIS. PO SCH ×2 (07:39→21:00)
--- NOTE | 2021-08-06 08:44 | PDOC ---
Exam Note: Prasanna Note: This note is a late entry for 08/05/2021 covers elements not covered in my initial note. Subjective: The patient was reviewed at treatment team meeting individually in the morning on 08/05/2021 with Daniela Brewster, Lina Guallpa, and Anastasiia Devlin (psych social worker), Jessi, activity therapy and Dar SWIFT, discussed and reviewed the chart. The patient slept 7-1/4 hours previous night. Average sleep 4 hours. Appetite 50%. We have requested records and I have reviewed fairly extensive psychiatric records from [facility] with diagnosis of schizophrenia versus bipolar disorder but in fact on close review of her history it is evident she has diagnosis of schizoaffective disorder bipolar type. Medically she has an old pelvic fracture, lymphedema both legs, refusing meds at times have to be syringed at times. TSH is elevated. Staff is persevering and making sure she takes Synthroid. We will also do CT head if not done in 6 months. She refused flu vaccine on 08/03 but took it later post telephone call with daughter. Review of Systems: No CV, , pulmonary, eye system symptoms on review. Impaired ambulation with walker. Hard of hearing. Mental Status Exam: The patient is reasonably oriented. Speech coherent, pressured less so than before. Abstraction fair. Computation impaired. Language function intact. Attention span short. Mood and affect somewhat remains somewhat anxious, labile. Laboratory Data: Reviewed. Impression: Schizoaffective disorder bipolar type, mixed with psychotic features. Anxiety disorder unspecified. Impulse control disorder unspecified. Plan: Continue current psychotropics. Follow labs level on Depakote on 08/06. Adjust to reach therapeutic level. Make further adjustments as clinically indicated. Assessment: Vital Signs/I&O: Vital Signs Date Time Temp Pulse Resp B/P (MAP) Pulse Ox O2 Delivery O2 Flow Rate FiO2 08/06/21 05:43 97.4 77 18 141/76 (97) 96 08/04/21 06:26 Room Air I & O 08/05/21 08/05/21 08/06/21 15:00 23:00 07:00 Intake Total 200 ml 60 ml 0 ml Balance 200 ml 60 ml 0 ml Current Medications: Meds: Current Medications Medications (Trade) Dose Ordered Sig/Ervin Route PRN Reason Start Time Stop Time Status Last Admin Dose Admin Ibuprofen (Motrin) 600 mg PRN Q6HRS PRN PO PAIN 08/02/21 16:45 08/03/21 16:14 DC 08/02/21 23:17 Levothyroxine Sodium (Synthroid) 75 mcg DAILY06 PO 08/03/21 06:00 08/06/21 05:53 Olanzapine (ZyPREXA) 5 mg PRN Q4HRS PRN PO AGITATION 08/02/21 16:45 08/02/21 22:47 DC Lactobacillus Rhamnosus (Culturelle) 1 cap DAILY PO 08/03/21 09:00 Multi-Ingred Cream/Lotion/Oil/ Oint (Hydrocerin) 1 rachel BID TP 08/02/21 21:00 08/03/21 19:28 DC Mupirocin (Bactroban) 1 rachel DAILY TP 08/03/21 09:00 08/03/21 16:16 DC Acetaminophen (Tylenol) 650 mg PRN Q6HRS PRN PO MILD PAIN / TEMP > 100.3'F 08/02/21 16:45 08/04/21 23:56 Multi-Ingredient Ointment (Analgesic [place]) 1 rachel PRN QID PRN TP MUSCLE PAIN 08/02/21 16:45 Al Hydroxide/Mg Hydroxide (Mylanta Plus Xs) 15 ml PRN AFTMEALHC PRN PO DYSPEPSIA 08/02/21 16:45 Magnesium Hydroxide (Milk Of Magnesia) 2,400 mg PRN QHS PRN PO CONSTIPATION 08/02/21 16:45 Influenza Virus Vaccine Quadrival (Flulaval Quad [id number] Syringe) 0.5 ml ONCE ONCE VAX IM 08/02/21 19:00 08/02/21 19:01 DC 08/03/21 12:43 Olanzapine (ZyPREXA) 2.5 mg PRN Q2HRS PRN PO AGITATION 08/02/21 23:00 08/02/21 23:24 DC Olanzapine (ZyPREXA ZYDIS) 2.5 mg PRN Q2HR PRN PO PSYCHOSIS 08/02/21 23:30 08/06/21 07:39 Lactic Acid (Lac-Hydrin) 1 rachel BID TP 08/03/21 21:00 08/05/21 15:05 Multi-Ingred Cream/Lotion/Oil/ Oint (Hydrocerin) 1 rachel PRN BID PRN TP DRY SKIN 08/03/21 19:30 Mirtazapine (Remeron) 7.5 mg QHS PO 08/03/21 21:00 08/05/21 20:16 Divalproex Sodium (Depakote Sprinkles) 500 mg QHS PO 08/03/21 21:00 08/03/21 20:42 Trazodone HCl (Desyrel) 50 mg PRN QHS PRN PO INSOMNIA, MAY REPEAT X1 08/03/21 20:45 08/05/21 20:57 Risperidone (RisperDAL M) 0.5 mg DAILY PO 08/04/21 09:00 08/06/21 07:39 I have reviewed the current psychotropics carefully including drug interactions. Risk benefit ratio favors no change other than as noted in my dictated progress note. Diagnosis: Problems: (1) Schizoaffective disorder, bipolar type (2) Impulse control disorder, unspecified (3) Anxiety disorder, unspecified (4) Bipolar disorder, curr episode mixed, severe, with psychotic features ENOCH YBARRA MD Aug 06, 2021 08:44
[2021-08-06] MEDS: AMMONIUM LACTATE 12% TOPICAL LOTION 226GM BOTTLE. TP SCH ×2 (09:00→21:00)
[2021-08-06] MEDS: LACTOBACILLUS RHAMNOSUS GG 1 CAPSULE. PO SCH (09:00)
--- NOTE | 2021-08-06 09:15 | NUR ---
Wound/Ostomy Care Wound Type/Assessment: Wound consult for RLE wounds. Pt has abrasions to right anterior lower leg and lateral ankle. Cleansed areas, applied xeroform, ABD and kerlix, secured with medigrip G. Patient was resistant to care but allowed dressing change after talking to her nurse. Treatment Recommendations/Plan: Continue with xeroform, ABD and kerlix with medigrip. Change every 2 days and PRN for drainage. Education provided: WC POC and PU prevention, pt will need reinforcement of teaching due to mental status. Offloading surface/device: na Recommended Referrals/Tests: na Discharge Recommendations for dressings: see above
--- NOTE | 2021-08-06 11:28 | RAD ---
EXAM: CT head without contrast INDICATION: Altered mental status COMPARISON: None TECHNIQUE: Axial CT imaging through the head without intravenous contrast. One or more of the following individualized dose reduction techniques were utilized for this examinat ion: 1. Automated exposure control 2. Adjustment of the mA and/or kV according to patient size 3. Use of iterative reconstruction technique. FINDINGS: There is no intracranial hemorrhage, acute infarct, or mass lesion. There is moderate enlargement of the lateral and third ventricles, out of proportion to the milder enlargement of the sulci. The fourt h ventricle is normal in size. There is mild periventricular white matter hypoattenuation. Basal cist erns are clear. The skull is intact. The paranasal sinuses and mastoid air cells are clear. IMPRESSION: 1. No acute intracranial abnormality. 2. Moderate enlargement of the ventricles, out of proportion to the sulci. Correlate for normal press ure hydrocephalus. Electronically signed by: Sherry Mills MD (08/06/2021 11:26 AM) [id number]
[2021-08-06 14:51] LABS: BASO % 0 % (0-3); EOS # 0.1 x10^3/uL (0.0-0.7); EOS % 2 % (0-3); HEMATOCRIT 35.5 % (36.0-47.0); HEMOGLOBIN 11.8 g/dL (12.0-15.5); LYMPH # 1.2 x10^3/uL (1.0-4.8); LYMPH % 20 % (24-48); MEAN CORPUSCULAR HEMOGLOBIN 29 pg (25-35); MEAN CORPUSCULAR HGB CONC 33 g/dL (31-37); MEAN CORPUSCULAR VOLUME 88 fL (79-100); MONO # 0.7 x10^3/uL (0.0-1.1); MONO % 11 % (0-9); NEUT # 4.1 x10^3uL (1.8-7.7); NEUT % 67 % (31-73); PLATELET COUNT 303 x10^3/uL (140-400); RED BLOOD COUNT 4.02 x10^6/uL (3.50-5.40); RED CELL DISTRIBUTION WIDTH 16.2 % (11.5-14.5); WHITE BLOOD COUNT 6.1 x10^3/uL (4.0-11.0)
[2021-08-06 15:10] LABS: ALBUMIN 3.2 g/dL (3.4-5.0); ALK PHOS 103 U/L (46-116); ALT (SGPT) 18 U/L (14-59); ANION GAP 5 (6-14); AST (SGOT) 17 U/L (15-37); BLOOD UREA NITROGEN 18 mg/dL (7-20); BUN/CREATININE RATIO 20 (6-20); CALCIUM 9.2 mg/dL (8.5-10.1); CARBON DIOXIDE 26 mmol/L (21-32); CHLORIDE 105 mmol/L (98-107); CREATININE 0.9 mg/dL (0.6-1.0); GFR 60.7; GLUCOSE 108 mg/dL (70-99); POTASSIUM 4.3 mmol/L (3.5-5.1); SODIUM 136 mmol/L (136-145); TOTAL BILIRUBIN 0.2 mg/dL (0.2-1.0); TOTAL PROTEIN 6.4 g/dL (6.4-8.2)
[2021-08-06 15:16] LABS: VAL ACID < 3 mcg/mL (50-100)
[2021-08-06 15:52] VITALS: BP 129/77
[2021-08-06] MEDS: DIVALPROEX 125 MG CAP.SPRINK PO SCH (21:00)
[2021-08-06] MEDS: MIRTAZAPINE 7.5 MG TABLET. PO SCH (21:00)
--- NOTE | 2021-08-06 22:24 | PDOC ---
Exam Note: Prasanna Note: Please also refer to the separate dictated note~for this date of service dictated separately.~Patient seen individually. Discussed the patient with Nursing staff reviewed the chart.~Reviewed interim history and current functioning. Reviewed vital signs,~Labs/ Radiology~and current medications noted below. Continue current treatment with the changes noted in the dictated addendum note Assessment: Vital Signs/I&O: Vital Signs Date Time Temp Pulse Resp B/P (MAP) Pulse Ox O2 Delivery O2 Flow Rate FiO2 08/06/21 15:52 97.7 78 18 129/77 (94) 93 08/04/21 06:26 Room Air I & O 08/05/21 08/05/21 08/06/21 15:00 23:00 07:00 Intake Total 200 ml 60 ml 0 ml Balance 200 ml 60 ml 0 ml Labs: Laboratory Tests Test 08/06/21 14:15 08/06/21 14:16 White Blood Count 6.1 x10^3/uL (4.0-11.0) Red Blood Count 4.02 x10^6/uL (3.50-5.40) Hemoglobin 11.8 g/dL (12.0-15.5) L Hematocrit 35.5 % (36.0-47.0) L Mean Corpuscular Volume 88 fL (79-100) Mean Corpuscular Hemoglobin 29 pg (25-35) Mean Corpuscular Hemoglobin Concent 33 g/dL (31-37) Red Cell Distribution Width 16.2 % (11.5-14.5) H Platelet Count 303 x10^3/uL (140-400) Neutrophils (%) (Auto) 67 % (31-73) Lymphocytes (%) (Auto) 20 % (24-48) L Monocytes (%) (Auto) 11 % (0-9) H Eosinophils (%) (Auto) 2 % (0-3) Basophils (%) (Auto) 0 % (0-3) Neutrophils # (Auto) 4.1 x10^3uL (1.8-7.7) Lymphocytes # (Auto) 1.2 x10^3/uL (1.0-4.8) Monocytes # (Auto) 0.7 x10^3/uL (0.0-1.1) Eosinophils # (Auto) 0.1 x10^3/uL (0.0-0.7) Basophils # (Auto) 0.0 x10^3/uL (0.0-0.2) Sodium Level 136 mmol/L (136-145) Potassium Level 4.3 mmol/L (3.5-5.1) Chloride Level 105 mmol/L (98-107) Carbon Dioxide Level 26 mmol/L (21-32) Anion Gap 5 (6-14) L Blood Urea Nitrogen 18 mg/dL (7-20) Creatinine 0.9 mg/dL (0.6-1.0) Estimated GFR (Cockcroft-Gault) 60.7 BUN/Creatinine Ratio 20 (6-20) Glucose Level 108 mg/dL (70-99) H Calcium Level 9.2 mg/dL (8.5-10.1) Total Bilirubin 0.2 mg/dL (0.2-1.0) Aspartate Amino Transferase (AST) 17 U/L (15-37) Alanine Aminotransferase (ALT) 18 U/L (14-59) Alkaline Phosphatase 103 U/L (46-116) Total Protein 6.4 g/dL (6.4-8.2) Albumin 3.2 g/dL (3.4-5.0) L Albumin/Globulin Ratio 1.0 (1.0-1.7) Valproic Acid Level < 3 mcg/mL (50-100) L Valproic Acid Last Dose Date 08/05/21 Valproic Acid Last Dose Time 2100 Ammonia 20 mcmol/L (11-34) Current Medications: Meds: Laboratory Tests Test 08/06/21 14:15 08/06/21 14:16 White Blood Count 6.1 x10^3/uL Red Blood Count 4.02 x10^6/uL Hemoglobin 11.8 g/dL Hematocrit 35.5 % Mean Corpuscular Volume 88 fL Mean Corpuscular Hemoglobin 29 pg Mean Corpuscular Hemoglobin Concent 33 g/dL Red Cell Distribution Width 16.2 % Platelet Count 303 x10^3/uL Neutrophils (%) (Auto) 67 % Lymphocytes (%) (Auto) 20 % Monocytes (%) (Auto) 11 % Eosinophils (%) (Auto) 2 % Basophils (%) (Auto) 0 % Neutrophils # (Auto) 4.1 x10^3uL Lymphocytes # (Auto) 1.2 x10^3/uL Monocytes # (Auto) 0.7 x10^3/uL Eosinophils # (Auto) 0.1 x10^3/uL Basophils # (Auto) 0.0 x10^3/uL Sodium Level 136 mmol/L Potassium Level 4.3 mmol/L Chloride Level 105 mmol/L Carbon Dioxide Level 26 mmol/L Anion Gap 5 Blood Urea Nitrogen 18 mg/dL Creatinine 0.9 mg/dL Estimated GFR (Cockcroft-Gault) 60.7 BUN/Creatinine Ratio 20 Glucose Level 108 mg/dL Calcium Level 9.2 mg/dL Total Bilirubin 0.2 mg/dL Aspartate Amino Transf (AST/SGOT) 17 U/L Alanine Aminotransferase (ALT/SGPT) 18 U/L Alkaline Phosphatase 103 U/L Total Protein 6.4 g/dL Albumin 3.2 g/dL Albumin/Globulin Ratio 1.0 Valproic Acid (Depakene) Level < 3 mcg/mL Valproic Acid Last Dose Date 08/05/21 Valproic Acid Last Dose Time 2100 Ammonia 20 mcmol/L Current Medications Medications (Trade) Dose Ordered Sig/Ervin Route PRN Reason Start Time Stop Time Status Last Admin Dose Admin Ibuprofen (Motrin) 600 mg PRN Q6HRS PRN PO PAIN 08/02/21 16:45 08/03/21 16:14 DC 08/02/21 23:17 Levothyroxine Sodium (Synthroid) 75 mcg DAILY06 PO 08/03/21 06:00 08/06/21 05:53 Olanzapine (ZyPREXA) 5 mg PRN Q4HRS PRN PO AGITATION 08/02/21 16:45 08/02/21 22:47 DC Lactobacillus Rhamnosus (Culturelle) 1 cap DAILY PO 08/03/21 09:00 Multi-Ingred Cream/Lotion/Oil/ Oint (Hydrocerin) 1 rachel BID TP 08/02/21 21:00 08/03/21 19:28 DC Mupirocin (Bactroban) 1 rachel DAILY TP 08/03/21 09:00 08/03/21 16:16 DC Acetaminophen (Tylenol) 650 mg PRN Q6HRS PRN PO MILD PAIN / TEMP > 100.3'F 08/02/21 16:45 08/04/21 23:56 Multi-Ingredient Ointment (Analgesic [place]) 1 rachel PRN QID PRN TP MUSCLE PAIN 08/02/21 16:45 Al Hydroxide/Mg Hydroxide (Mylanta Plus Xs) 15 ml PRN AFTMEALHC PRN PO DYSPEPSIA 08/02/21 16:45 Magnesium Hydroxide (Milk Of Magnesia) 2,400 mg PRN QHS PRN PO CONSTIPATION 08/02/21 16:45 Influenza Virus Vaccine Quadrival (Flulaval Quad [id number] Syringe) 0.5 ml ONCE ONCE VAX IM 08/02/21 19:00 08/02/21 19:01 DC 08/03/21 12:43 Olanzapine (ZyPREXA) 2.5 mg PRN Q2HRS PRN PO AGITATION 08/02/21 23:00 08/02/21 23:24 DC Olanzapine (ZyPREXA ZYDIS) 2.5 mg PRN Q2HR PRN PO PSYCHOSIS 08/02/21 23:30 08/06/21 07:39 Lactic Acid (Lac-Hydrin) 1 rachel BID TP 08/03/21 21:00 08/06/21 09:00 Multi-Ingred Cream/Lotion/Oil/ Oint (Hydrocerin) 1 rachel PRN BID PRN TP DRY SKIN 08/03/21 19:30 Mirtazapine (Remeron) 7.5 mg QHS PO 08/03/21 21:00 08/05/21 20:16 Divalproex Sodium (Depakote Sprinkles) 500 mg QHS PO 08/03/21 21:00 08/03/21 20:42 Trazodone HCl (Desyrel) 50 mg PRN QHS PRN PO INSOMNIA, MAY REPEAT X1 08/03/21 20:45 08/05/21 20:57 Risperidone (RisperDAL M) 0.5 mg DAILY PO 08/04/21 09:00 08/06/21 07:39 Levofloxacin (Levaquin) 250 mg DAILY06 PO 08/07/21 06:00 Risperidone (RisperDAL M) 0.75 mg QHS PO 08/06/21 21:00 I have reviewed the current psychotropics carefully including drug interactions. Risk benefit ratio favors no change other than as noted in my dictated progress note. Diagnosis: Problems: (1) Schizoaffective disorder, bipolar type (2) Impulse control disorder, unspecified (3) Anxiety disorder, unspecified (4) Bipolar disorder, curr episode mixed, severe, with psychotic features ENOCH YBARRA MD Aug 06, 2021 22:24
--- NOTE | 2021-08-07 03:04 | NUR ---
Nursing Note The patient was located in her room for interactions with this nurse. The patient declined to take medication or participate in her assessment. Currently sleeping in her room.
[2021-08-07] MEDS: levoFLOXacin 250 MG TABLET PO SCH ×2 (06:00→09:52)
[2021-08-07] MEDS: LEVOTHYROXINE 75 MCG TABLET PO SCH (06:00)
[2021-08-07 06:09] VITALS: BP 102/66
[2021-08-07] MEDS: LACTOBACILLUS RHAMNOSUS GG 1 CAPSULE. PO SCH (09:00)
[2021-08-07] MEDS: AMMONIUM LACTATE 12% TOPICAL LOTION 226GM BOTTLE. TP SCH ×2 (09:52→20:46)
[2021-08-07] MEDS: risperiDONE ODT 0.5 MG TAB.RAPDIS. PO SCH ×2 (09:52→20:46)
[2021-08-07 15:38] VITALS: BP 125/89
--- NOTE | 2021-08-07 18:30 | NUR ---
Patient was very resistive to morning medications. She has been demanding, sarcastic, and withdrawn for most the shift. Will continue to monitor and report to oncoming shift.
[2021-08-07] MEDS: MIRTAZAPINE 7.5 MG TABLET. PO SCH (20:45)
[2021-08-07] MEDS: DIVALPROEX 125 MG CAP.SPRINK PO SCH (20:46)
--- NOTE | 2021-08-07 22:02 | PDOC ---
Exam Note: Prasanna Note: Information from date of service 08/04/21 and my information from nursing staff for that date and review of labs and interim progress from 08/04/21 was incorporated into the note of 08/05. This note is a late entry for 08/06/2021 covers elements not covered in my initial note. Subjective: The patient was seen individually in the evening of 08/06/2021 with Dar SWIFT, discussed and reviewed the chart. The patient slept 4 [address] Patients CT head shows evidence of normal pressure hydrocephalus. The family states this was evaluated few years back by neurologist and nothing was suggested for intervention. We will request Dr. Dennis, neurologist for a consult once again. She has been irritable, ripped off the dressing placed on her lower extremity by the Wound Care team because she felt it was too tight. She received Zyprexa p.r.n. UA shows Streptococcus bovis. We will defer to Dr. Nam. I met with her in the hallway outside her room. She was seated in a chair. Review of Systems: No CV, , pulmonary, eye system symptoms on review. Impaired ambulation with walker. Hard of hearing. Mental Status Exam: The patient is oriented to herself and situation. Speech coherent. Abstraction fair. Computation impaired. Language function intact. Mood and affect somewhat labile. She had many questions about discharge. I addressed with her. Laboratory Data: Reviewed. Impression: Schizoaffective disorder bipolar type with psychotic features. Anxiety disorder unspecified. Impulse control disorder unspecified. Possible normal pressure hydrocephalus. Plan: Increase Risperdal from 0.5 mg daily to 0.[address] Dennis. Defer medical management to C[facility]. Follow labs level on Depakote. Adjust to reach therapeutic level. Assessment: Vital Signs/I&O: Vital Signs Date Time Temp Pulse Resp B/P (MAP) Pulse Ox O2 Delivery O2 Flow Rate FiO2 08/07/21 15:38 97.8 86 20 125/89 (101) 96 08/04/21 06:26 Room Air I & O 08/06/21 08/06/21 08/07/21 15:00 23:00 07:00 Intake Total 340 ml 300 ml Balance 340 ml 300 ml Current Medications: Meds: Current Medications Medications (Trade) Dose Ordered Sig/Ervin Route PRN Reason Start Time Stop Time Status Last Admin Dose Admin Ibuprofen (Motrin) 600 mg PRN Q6HRS PRN PO PAIN 08/02/21 16:45 08/03/21 16:14 DC 08/02/21 23:17 Levothyroxine Sodium (Synthroid) 75 mcg DAILY06 PO 08/03/21 06:00 08/07/21 06:00 Olanzapine (ZyPREXA) 5 mg PRN Q4HRS PRN PO AGITATION 08/02/21 16:45 08/02/21 22:47 DC Lactobacillus Rhamnosus (Culturelle) 1 cap DAILY PO 08/03/21 09:00 Multi-Ingred Cream/Lotion/Oil/ Oint (Hydrocerin) 1 rahcel BID TP 08/02/21 21:00 08/03/21 19:28 DC Mupirocin (Bactroban) 1 rachel DAILY TP 08/03/21 09:00 08/03/21 16:16 DC Acetaminophen (Tylenol) 650 mg PRN Q6HRS PRN PO MILD PAIN / TEMP > 100.3'F 08/02/21 16:45 08/04/21 23:56 Multi-Ingredient Ointment (Analgesic [place]) 1 rachel PRN QID PRN TP MUSCLE PAIN 08/02/21 16:45 Al Hydroxide/Mg Hydroxide (Mylanta Plus Xs) 15 ml PRN AFTMEALHC PRN PO DYSPEPSIA 08/02/21 16:45 Magnesium Hydroxide (Milk Of Magnesia) 2,400 mg PRN QHS PRN PO CONSTIPATION 08/02/21 16:45 Influenza Virus Vaccine Quadrival (Flulaval Quad [id number] Syringe) 0.5 ml ONCE ONCE VAX IM 08/02/21 19:00 08/02/21 19:01 DC 08/03/21 12:43 Olanzapine (ZyPREXA) 2.5 mg PRN Q2HRS PRN PO AGITATION 08/02/21 23:00 08/02/21 23:24 DC Olanzapine (ZyPREXA ZYDIS) 2.5 mg PRN Q2HR PRN PO PSYCHOSIS 08/02/21 23:30 08/06/21 07:39 Lactic Acid (Lac-Hydrin) 1 rachel BID TP 08/03/21 21:00 08/07/21 20:46 Multi-Ingred Cream/Lotion/Oil/ Oint (Hydrocerin) 1 rachel PRN BID PRN TP DRY SKIN 08/03/21 19:30 Mirtazapine (Remeron) 7.5 mg QHS PO 08/03/21 21:00 08/07/21 20:45 Divalproex Sodium (Depakote Sprinkles) 500 mg QHS PO 08/03/21 21:00 08/07/21 20:46 Trazodone HCl (Desyrel) 50 mg PRN QHS PRN PO INSOMNIA, MAY REPEAT X1 08/03/21 20:45 08/05/21 20:57 Risperidone (RisperDAL M) 0.5 mg DAILY PO 08/04/21 09:00 08/07/21 09:52 Levofloxacin (Levaquin) 250 mg DAILY06 PO 08/07/21 06:00 08/07/21 09:52 Risperidone (RisperDAL M) 0.75 mg QHS PO 08/06/21 21:00 08/07/21 20:46 Current Medications Medications (Trade) Dose Ordered Sig/Ervin Route PRN Reason Start Time Stop Time Status Last Admin Dose Admin Levofloxacin (Levaquin) 250 mg DAILY06 PO 08/07/21 06:00 08/07/21 09:52 I have reviewed the current psychotropics carefully including drug interactions. Risk benefit ratio favors no change other than as noted in my dictated progress note. Diagnosis: Problems: (1) Schizoaffective disorder, bipolar type (2) Impulse control disorder, unspecified (3) Anxiety disorder, unspecified (4) Bipolar disorder, curr episode mixed, severe, with psychotic features ENOCH YBARRA MD Aug 07, 2021 22:02
--- NOTE | 2021-08-07 22:02 | PDOC ---
Exam Note: Prasanna Note: Please also refer to the separate dictated note~for this date of service dictated separately.~Patient seen individually. Discussed the patient with Nursing staff reviewed the chart.~Reviewed interim history and current functioning. Reviewed vital signs,~Labs/ Radiology~and current medications noted below. Continue current treatment with the changes noted in the dictated addendum note Assessment: Vital Signs/I&O: Vital Signs Date Time Temp Pulse Resp B/P (MAP) Pulse Ox O2 Delivery O2 Flow Rate FiO2 08/07/21 15:38 97.8 86 20 125/89 (101) 96 08/04/21 06:26 Room Air I & O 08/06/21 08/06/21 08/07/21 15:00 23:00 07:00 Intake Total 340 ml 300 ml Balance 340 ml 300 ml Current Medications: Meds: Current Medications Medications (Trade) Dose Ordered Sig/Ervin Route PRN Reason Start Time Stop Time Status Last Admin Dose Admin Ibuprofen (Motrin) 600 mg PRN Q6HRS PRN PO PAIN 08/02/21 16:45 08/03/21 16:14 DC 08/02/21 23:17 Levothyroxine Sodium (Synthroid) 75 mcg DAILY06 PO 08/03/21 06:00 08/07/21 06:00 Olanzapine (ZyPREXA) 5 mg PRN Q4HRS PRN PO AGITATION 08/02/21 16:45 08/02/21 22:47 DC Lactobacillus Rhamnosus (Culturelle) 1 cap DAILY PO 08/03/21 09:00 Multi-Ingred Cream/Lotion/Oil/ Oint (Hydrocerin) 1 rachel BID TP 08/02/21 21:00 08/03/21 19:28 DC Mupirocin (Bactroban) 1 rachel DAILY TP 08/03/21 09:00 08/03/21 16:16 DC Acetaminophen (Tylenol) 650 mg PRN Q6HRS PRN PO MILD PAIN / TEMP > 100.3'F 08/02/21 16:45 08/04/21 23:56 Multi-Ingredient Ointment (Analgesic [place]) 1 rachel PRN QID PRN TP MUSCLE PAIN 08/02/21 16:45 Al Hydroxide/Mg Hydroxide (Mylanta Plus Xs) 15 ml PRN AFTMEALHC PRN PO DYSPEPSIA 08/02/21 16:45 Magnesium Hydroxide (Milk Of Magnesia) 2,400 mg PRN QHS PRN PO CONSTIPATION 08/02/21 16:45 Influenza Virus Vaccine Quadrival (Flulaval Quad Syringe) 0.5 ml ONCE ONCE VAX IM 08/02/21 19:00 08/02/21 19:01 DC 08/03/21 12:43 Olanzapine (ZyPREXA) 2.5 mg PRN Q2HRS PRN PO AGITATION 08/02/21 23:00 08/02/21 23:24 DC Olanzapine (ZyPREXA ZYDIS) 2.5 mg PRN Q2HR PRN PO PSYCHOSIS 08/02/21 23:30 08/06/21 07:39 Lactic Acid (Lac-Hydrin) 1 rachel BID TP 08/03/21 21:00 08/07/21 20:46 Multi-Ingred Cream/Lotion/Oil/ Oint (Hydrocerin) 1 rachel PRN BID PRN TP DRY SKIN 08/03/21 19:30 Mirtazapine (Remeron) 7.5 mg QHS PO 08/03/21 21:00 08/07/21 20:45 Divalproex Sodium (Depakote Sprinkles) 500 mg QHS PO 08/03/21 21:00 08/07/21 20:46 Trazodone HCl (Desyrel) 50 mg PRN QHS PRN PO INSOMNIA, MAY REPEAT X1 08/03/21 20:45 08/05/21 20:57 Risperidone (RisperDAL M) 0.5 mg DAILY PO 08/04/21 09:00 08/07/21 09:52 Levofloxacin (Levaquin) 250 mg DAILY06 PO 08/07/21 06:00 08/07/21 09:52 Risperidone (RisperDAL M) 0.75 mg QHS PO 08/06/21 21:00 08/07/21 20:46 Current Medications Medications (Trade) Dose Ordered Sig/Ervin Route PRN Reason Start Time Stop Time Status Last Admin Dose Admin Levofloxacin (Levaquin) 250 mg DAILY06 PO 08/07/21 06:00 08/07/21 09:52 I have reviewed the current psychotropics carefully including drug interactions. Risk benefit ratio favors no change other than as noted in my dictated progress note. Diagnosis: Problems: (1) Schizoaffective disorder, bipolar type (2) Impulse control disorder, unspecified (3) Anxiety disorder, unspecified (4) Bipolar disorder, curr episode mixed, severe, with psychotic features ENOCH YBARRA MD Aug 07, 2021 22:02
--- NOTE | 2021-08-08 01:34 | NUR ---
Last evening pt was at nursing station window demanding to call daughter. Nurse placed call and asked daughter to tell pt she needs to take her meds. After phone call pt took meds whole and was cooperative shower and HS cares. Since going to bed she has been sleeping.
[2021-08-08] MEDS: levoFLOXacin 250 MG TABLET PO SCH (05:49)
[2021-08-08] MEDS: LEVOTHYROXINE 75 MCG TABLET PO SCH (05:49)
[2021-08-08 06:29] VITALS: BP 124/88
[2021-08-08] MEDS: LACTOBACILLUS RHAMNOSUS GG 1 CAPSULE. PO SCH (09:00)
[2021-08-08] MEDS: AMMONIUM LACTATE 12% TOPICAL LOTION 226GM BOTTLE. TP SCH ×2 (09:00→20:09)
--- NOTE | 2021-08-08 09:46 | NUR ---
Pt woke long enough for breakfast and then went back to sleep. She has not had her morning medications as of yet nor has she been assessed. During her brief period while awake she was absent of disruptive behaviors on the unit. Will continue to monitor.
[2021-08-08 16:10] VITALS: BP 112/73
--- NOTE | 2021-08-08 16:42 | NUR ---
Pt has slept most of the day and upon waking she has been sitting in the hallway. She does not interact with other patients, she does not interact with staff either. She allows auscultation of chest and abd, but other than that she will not answer assessment questions. Pt refuses medications, including ammonium lactate for her legs. Pt has been observed multiple times scratching the skin off her legs; staff has redirected her successfully, however in time she's back to scratching. Pt has been absent of disruptive behaviors on the unit so far today. Plan of care continues, will pass to next shift.
[2021-08-08] MEDS: DIVALPROEX 125 MG CAP.SPRINK PO SCH (20:06)
[2021-08-08] MEDS: risperiDONE ODT 0.5 MG TAB.RAPDIS. PO SCH (20:07)
[2021-08-08] MEDS: MIRTAZAPINE 7.5 MG TABLET. PO SCH (20:07)
--- NOTE | 2021-08-08 22:09 | PDOC ---
Exam Note: Prasanna Note: Please also refer to the separate dictated note~for this date of service dictated separately.~Patient seen individually. Discussed the patient with Nursing staff reviewed the chart.~Reviewed interim history and current functioning. Reviewed vital signs,~Labs/ Radiology~and current medications noted below. Continue current treatment with the changes noted in the dictated addendum note Assessment: Vital Signs/I&O: Vital Signs Date Time Temp Pulse Resp B/P (MAP) Pulse Ox O2 Delivery O2 Flow Rate FiO2 08/08/21 16:10 98.8 71 19 112/73 (86) 96 08/04/21 06:26 Room Air I & O 08/07/21 08/07/21 08/08/21 15:00 23:00 07:00 Intake Total 360 ml 480 ml Balance 360 ml 480 ml Labs: Laboratory Tests Test 08/08/21 06:00 SARS-CoV-2 (PCR) Not detected (NOT DETECTD) Current Medications: Meds: Laboratory Tests Test 08/08/21 06:00 Coronavirus (COVID-19)(PCR) Not detected Current Medications Medications (Trade) Dose Ordered Sig/Ervin Route PRN Reason Start Time Stop Time Status Last Admin Dose Admin Ibuprofen (Motrin) 600 mg PRN Q6HRS PRN PO PAIN 08/02/21 16:45 08/03/21 16:14 DC 08/02/21 23:17 Levothyroxine Sodium (Synthroid) 75 mcg DAILY06 PO 08/03/21 06:00 08/08/21 05:49 Olanzapine (ZyPREXA) 5 mg PRN Q4HRS PRN PO AGITATION 08/02/21 16:45 08/02/21 22:47 DC Lactobacillus Rhamnosus (Culturelle) 1 cap DAILY PO 08/03/21 09:00 Multi-Ingred Cream/Lotion/Oil/ Oint (Hydrocerin) 1 rachel BID TP 08/02/21 21:00 08/03/21 19:28 DC Mupirocin (Bactroban) 1 rachel DAILY TP 08/03/21 09:00 08/03/21 16:16 DC Acetaminophen (Tylenol) 650 mg PRN Q6HRS PRN PO MILD PAIN / TEMP > 100.3'F 08/02/21 16:45 08/04/21 23:56 Multi-Ingredient Ointment (Analgesic [place]) 1 rachel PRN QID PRN TP MUSCLE PAIN 08/02/21 16:45 Al Hydroxide/Mg Hydroxide (Mylanta Plus Xs) 15 ml PRN AFTMEALHC PRN PO DYSPEPSIA 08/02/21 16:45 Magnesium Hydroxide (Milk Of Magnesia) 2,400 mg PRN QHS PRN PO CONSTIPATION 08/02/21 16:45 Influenza Virus Vaccine Quadrival (Flulaval Quad [id number] Syringe) 0.5 ml ONCE ONCE VAX IM 08/02/21 19:00 08/02/21 19:01 DC 08/03/21 12:43 Olanzapine (ZyPREXA) 2.5 mg PRN Q2HRS PRN PO AGITATION 08/02/21 23:00 08/02/21 23:24 DC Olanzapine (ZyPREXA ZYDIS) 2.5 mg PRN Q2HR PRN PO PSYCHOSIS 08/02/21 23:30 08/06/21 07:39 Lactic Acid (Lac-Hydrin) 1 rachel BID TP 08/03/21 21:00 08/08/21 20:09 Multi-Ingred Cream/Lotion/Oil/ Oint (Hydrocerin) 1 rachel PRN BID PRN TP DRY SKIN 08/03/21 19:30 Mirtazapine (Remeron) 7.5 mg QHS PO 08/03/21 21:00 08/08/21 20:07 Divalproex Sodium (Depakote Sprinkles) 500 mg QHS PO 08/03/21 21:00 08/08/21 20:06 Trazodone HCl (Desyrel) 50 mg PRN QHS PRN PO INSOMNIA, MAY REPEAT X1 08/03/21 20:45 08/05/21 20:57 Risperidone (RisperDAL M) 0.5 mg DAILY PO 08/04/21 09:00 08/08/21 11:09 DC 08/07/21 09:52 Levofloxacin (Levaquin) 250 mg DAILY06 PO 08/07/21 06:00 08/16/21 22:00 08/08/21 05:49 Risperidone (RisperDAL M) 0.75 mg QHS PO 08/06/21 21:00 08/08/21 20:07 I have reviewed the current psychotropics carefully including drug interactions. Risk benefit ratio favors no change other than as noted in my dictated progress note. Diagnosis: Problems: (1) Schizoaffective disorder, bipolar type (2) Impulse control disorder, unspecified (3) Anxiety disorder, unspecified (4) Bipolar disorder, curr episode mixed, severe, with psychotic features ENOCH YBARRA MD Aug 08, 2021 22:09
--- NOTE | 2021-08-09 01:35 | NUR ---
Last evening pt sat quietly in her room or hallway she has spent a lot of time scraping dry skin from her legs. She took HS meds whole without difficulty and asked that this nurse give the doctor a good report on her so she can go home. She has been cooperative with staff and has had no aggressive behaviors tonight.
[2021-08-09 06:09] VITALS: BP 116/66
[2021-08-09] MEDS: LEVOTHYROXINE 75 MCG TABLET PO SCH (06:16)
[2021-08-09] MEDS: levoFLOXacin 250 MG TABLET PO SCH (06:16)
[2021-08-09] MEDS: LACTOBACILLUS RHAMNOSUS GG 1 CAPSULE. PO SCH ×2 (08:06→08:54)
[2021-08-09] MEDS: AMMONIUM LACTATE 12% TOPICAL LOTION 226GM BOTTLE. TP SCH ×4 (08:06→21:00)
--- NOTE | 2021-08-09 09:18 | NUR ---
Pt began the day very passive aggressive towards staff. She would refuse to look at or talk to this nurse. Any questions I asked ("How are you," "would you like lotion for your legs," "are you in pain," "how was breakfast") was continuously met with silence from pt. She initially refused medications via silence and refusal to interact. After breakfast I became more direct in an attempt to assess. She still refused to answer assessment questions, and when told I would be auscultating her she replied, "No why?" When informed the Dr has ordered staff to assess her every shift she became argumentative and stated "Which Dr?" When I replied that the instructions came from Dr Alan she pretended to not know who he was and then suddenly began to act as if she could not hear anything I was saying. I became more direct and questioned pt if her [place] was selective. Pt then stopped and allowed auscultation. After I began to exit room pt screamed, "Bye creep! I always wanted to call you that!" and she began to laugh a very wild cackling. Pt has continued to scratch and scrape at her legs with her very long fingernails, which is causing skin flakes to scatter all over the floor of her room as well as the hallway when she sits out in the [place]. This causes an increased infection risk for her as well at for others who come into contact with the skin. This nurse and 2 other staff members trimmed her fingernails and performed hand hygiene on her. She allowed staff to do so. During this time I also administered her scheduled medications (Ammonium Lactate for legs and PO Culturelle). I approached medication administration with the same direct approach as during my attempt to assess pt which resulted in pt's medication compliance. She now has been intermittently laughing wildly which had be heard down at the other end of the [place]. She still does not interact with others and stays primarily withdrawn. Plan of care continues, will pass to next shift.
--- NOTE | 2021-08-09 10:04 | PDOC ---
Exam Note: Prasanna Note: This note is a late entry for 08/07/2021 covers elements not covered in my initial note. Subjective: The patient was seen individually in the evening of 08/07/2021 with Dar SWIFT, discussed and reviewed the chart. The patient slept 8 hours previous night. Patient refused all medications today. She continues to remove the lower extremity wraps. I addressed this with her and also had a lengthy discussion with her about taking her psychotropics. Review of Systems: No CV, , pulmonary, eye system symptoms on review. Impaired ambulation with walker. Mental Status Exam: The patient is oriented to herself and situation. Speech coherent has some latency. Abstraction fair. Computation impaired. Language function intact. Attention span short. Mood and affect withdrawn. Laboratory Data: Reviewed. Impression: Schizoaffective disorder bipolar type with psychotic features. Anxiety disorder unspecified. Impulse control disorder unspecified. Possible normal pressure hydrocephalus. Plan: No change from initial note. Assessment: Vital Signs/I&O: Vital Signs Date Time Temp Pulse Resp B/P (MAP) Pulse Ox O2 Delivery O2 Flow Rate FiO2 08/09/21 06:09 97.1 75 22 116/66 (83) 95 08/04/21 06:26 Room Air I & O 08/08/21 08/08/21 08/09/21 15:00 23:00 07:00 Intake Total 240 ml 480 ml Balance 240 ml 480 ml Current Medications: Meds: Current Medications Medications (Trade) Dose Ordered Sig/Ervin Route PRN Reason Start Time Stop Time Status Last Admin Dose Admin Ibuprofen (Motrin) 600 mg PRN Q6HRS PRN PO PAIN 08/02/21 16:45 08/03/21 16:14 DC 08/02/21 23:17 Levothyroxine Sodium (Synthroid) 75 mcg DAILY06 PO 08/03/21 06:00 08/09/21 06:16 Olanzapine (ZyPREXA) 5 mg PRN Q4HRS PRN PO AGITATION 08/02/21 16:45 08/02/21 22:47 DC Lactobacillus Rhamnosus (Culturelle) 1 cap DAILY PO 08/03/21 09:00 08/09/21 08:54 Multi-Ingred Cream/Lotion/Oil/ Oint (Hydrocerin) 1 rachel BID TP 08/02/21 21:00 08/03/21 19:28 DC Mupirocin (Bactroban) 1 rachel DAILY TP 08/03/21 09:00 08/03/21 16:16 DC Acetaminophen (Tylenol) 650 mg PRN Q6HRS PRN PO MILD PAIN / TEMP > 100.3'F 08/02/21 16:45 08/04/21 23:56 Multi-Ingredient Ointment (Analgesic [place]) 1 rachel PRN QID PRN TP MUSCLE PAIN 08/02/21 16:45 Al Hydroxide/Mg Hydroxide (Mylanta Plus Xs) 15 ml PRN AFTMEALHC PRN PO DYSPEPSIA 08/02/21 16:45 Magnesium Hydroxide (Milk Of Magnesia) 2,400 mg PRN QHS PRN PO CONSTIPATION 08/02/21 16:45 Influenza Virus Vaccine Quadrival (Flulaval Quad [id number] Syringe) 0.5 ml ONCE ONCE VAX IM 08/02/21 19:00 08/02/21 19:01 DC 08/03/21 12:43 Olanzapine (ZyPREXA) 2.5 mg PRN Q2HRS PRN PO AGITATION 08/02/21 23:00 08/02/21 23:24 DC Olanzapine (ZyPREXA ZYDIS) 2.5 mg PRN Q2HR PRN PO PSYCHOSIS 08/02/21 23:30 08/06/21 07:39 Lactic Acid (Lac-Hydrin) 1 rachel BID TP 08/03/21 21:00 08/09/21 08:54 Multi-Ingred Cream/Lotion/Oil/ Oint (Hydrocerin) 1 rachel PRN BID PRN TP DRY SKIN 08/03/21 19:30 Mirtazapine (Remeron) 7.5 mg QHS PO 08/03/21 21:00 08/08/21 20:07 Divalproex Sodium (Depakote Sprinkles) 500 mg QHS PO 08/03/21 21:00 08/08/21 20:06 Trazodone HCl (Desyrel) 50 mg PRN QHS PRN PO INSOMNIA, MAY REPEAT X1 08/03/21 20:45 08/05/21 20:57 Risperidone (RisperDAL M) 0.5 mg DAILY PO 08/04/21 09:00 08/08/21 11:09 DC 08/07/21 09:52 Levofloxacin (Levaquin) 250 mg DAILY06 PO 08/07/21 06:00 08/16/21 22:00 08/09/21 06:16 Risperidone (RisperDAL M) 0.75 mg QHS PO 08/06/21 21:00 08/08/21 20:07 I have reviewed the current psychotropics carefully including drug interactions. Risk benefit ratio favors no change other than as noted in my dictated progress note. Diagnosis: Problems: (1) Schizoaffective disorder, bipolar type (2) Impulse control disorder, unspecified (3) Anxiety disorder, unspecified (4) Bipolar disorder, curr episode mixed, severe, with psychotic features ENOCH YBARRA MD Aug 09, 2021 10:04
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
[2021-08-09 15:59] VITALS: BP 117/78
[2021-08-09] MEDS: MIRTAZAPINE 7.5 MG TABLET. PO SCH ×2 (20:33→21:00)
[2021-08-09] MEDS: risperiDONE ODT 0.5 MG TAB.RAPDIS. PO SCH ×2 (20:34→21:00)
[2021-08-09] MEDS: DIVALPROEX 125 MG CAP.SPRINK PO SCH (20:34)
--- NOTE | 2021-08-09 21:52 | PDOC ---
Exam Note: Prasanna Note: Please also refer to the separate dictated note~for this date of service dictated separately.~Patient seen individually. Discussed the patient with Nursing staff reviewed the chart.~Reviewed interim history and current functioning. Reviewed vital signs,~Labs/ Radiology~and current medications noted below. Continue current treatment with the changes noted in the dictated addendum note Assessment: Vital Signs/I&O: Vital Signs Date Time Temp Pulse Resp B/P (MAP) Pulse Ox O2 Delivery O2 Flow Rate FiO2 08/09/21 15:59 98.6 78 20 117/78 (91) 95 08/04/21 06:26 Room Air I & O 08/08/21 08/08/21 08/09/21 15:00 23:00 07:00 Intake Total 240 ml 480 ml Balance 240 ml 480 ml Current Medications: Meds: Current Medications Medications (Trade) Dose Ordered Sig/Ervin Route PRN Reason Start Time Stop Time Status Last Admin Dose Admin Ibuprofen (Motrin) 600 mg PRN Q6HRS PRN PO PAIN 08/02/21 16:45 08/03/21 16:14 DC 08/02/21 23:17 Levothyroxine Sodium (Synthroid) 75 mcg DAILY06 PO 08/03/21 06:00 08/09/21 06:16 Olanzapine (ZyPREXA) 5 mg PRN Q4HRS PRN PO AGITATION 08/02/21 16:45 08/02/21 22:47 DC Lactobacillus Rhamnosus (Culturelle) 1 cap DAILY PO 08/03/21 09:00 08/09/21 08:54 Multi-Ingred Cream/Lotion/Oil/ Oint (Hydrocerin) 1 rachel BID TP 08/02/21 21:00 08/03/21 19:28 DC Mupirocin (Bactroban) 1 rachel DAILY TP 08/03/21 09:00 08/03/21 16:16 DC Acetaminophen (Tylenol) 650 mg PRN Q6HRS PRN PO MILD PAIN / TEMP > 100.3'F 08/02/21 16:45 08/04/21 23:56 Multi-Ingredient Ointment (Analgesic [place]) 1 rachel PRN QID PRN TP MUSCLE PAIN 08/02/21 16:45 Al Hydroxide/Mg Hydroxide (Mylanta Plus Xs) 15 ml PRN AFTMEALHC PRN PO DYSPEPSIA 08/02/21 16:45 Magnesium Hydroxide (Milk Of Magnesia) 2,400 mg PRN QHS PRN PO CONSTIPATION 08/02/21 16:45 Influenza Virus Vaccine Quadrival (Flulaval Quad Syringe) 0.5 ml ONCE ONCE VAX IM 08/02/21 19:00 08/02/21 19:01 DC 08/03/21 12:43 Olanzapine (ZyPREXA) 2.5 mg PRN Q2HRS PRN PO AGITATION 08/02/21 23:00 08/02/21 23:24 DC Olanzapine (ZyPREXA ZYDIS) 2.5 mg PRN Q2HR PRN PO PSYCHOSIS 08/02/21 23:30 08/06/21 07:39 Lactic Acid (Lac-Hydrin) 1 rachel BID TP 08/03/21 21:00 08/09/21 20:34 Multi-Ingred Cream/Lotion/Oil/ Oint (Hydrocerin) 1 rachel PRN BID PRN TP DRY SKIN 08/03/21 19:30 Mirtazapine (Remeron) 7.5 mg QHS PO 08/03/21 21:00 08/09/21 20:33 Divalproex Sodium (Depakote Sprinkles) 500 mg QHS PO 08/03/21 21:00 08/09/21 20:34 Trazodone HCl (Desyrel) 50 mg PRN QHS PRN PO INSOMNIA, MAY REPEAT X1 08/03/21 20:45 08/05/21 20:57 Risperidone (RisperDAL M) 0.5 mg DAILY PO 08/04/21 09:00 08/08/21 11:09 DC 08/07/21 09:52 Levofloxacin (Levaquin) 250 mg DAILY06 PO 08/07/21 06:00 08/16/21 22:00 08/09/21 06:16 Risperidone (RisperDAL M) 0.75 mg QHS PO 08/06/21 21:00 08/09/21 20:34 I have reviewed the current psychotropics carefully including drug interactions. Risk benefit ratio favors no change other than as noted in my dictated progress note. Diagnosis: Problems: (1) Schizoaffective disorder, bipolar type (2) Impulse control disorder, unspecified (3) Anxiety disorder, unspecified (4) Bipolar disorder, curr episode mixed, severe, with psychotic features ENOCH YBARRA MD Aug 09, 2021 21:52
--- NOTE | 2021-08-10 01:49 | NUR ---
Last evening pt sat in the day room or walked in the hallway. She took meds whole but refused to take the Risperidone or Mirtazapine saying she does not need the "sedatives" that she sleeps just fine. Explained they were not sedatives but she continued to refuse. Since going to bed she has been sleeping off and on.
[2021-08-10] MEDS: LEVOTHYROXINE 75 MCG TABLET PO SCH (05:37)
[2021-08-10] MEDS: levoFLOXacin 250 MG TABLET PO SCH (05:37)
[2021-08-10 05:56] VITALS: BP 124/63
--- NOTE | 2021-08-10 08:55 | NUR ---
Per NOC report from JENIFFER Carney, pt refused her HS Remeron and he did not administer it. Medication documented as refused by this nurse.
[2021-08-10] MEDS: LACTOBACILLUS RHAMNOSUS GG 1 CAPSULE. PO SCH (09:00)
[2021-08-10] MEDS: AMMONIUM LACTATE 12% TOPICAL LOTION 226GM BOTTLE. TP SCH ×2 (09:00→20:31)
--- NOTE | 2021-08-10 12:44 | NUR ---
Pt quiet and withdrawn on the unit, often going back to her room immediately after meals. She has been absent of disruptive behaviors so far on the unit. She is not medication compliant, refusing morning medications and is not receptive to various education provided (that the medication prevents diarrhea, that the Dr ordered the medication for her etc). At one point she agreed to take the medication and threw it across the lunch table. Medication compliance was achieved when her food tray was moved away from her, so her full attention could be placed on the medication, and multiple staff members stood by the table as a show of support and encouragement. Pt continues to exaggerate [place] in an attempt to not cooperate with staff. She once again refuses to answer assessment questions. Plan of care continues, will pass to next shift.
[2021-08-10 15:26] VITALS: BP 90/56
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
[2021-08-10 20:08] VITALS: BP 111/71
[2021-08-10] MEDS: DIVALPROEX 125 MG CAP.SPRINK PO SCH (20:31)
[2021-08-10] MEDS: risperiDONE ODT 0.5 MG TAB.RAPDIS. PO SCH (20:31)
[2021-08-10] MEDS: MIRTAZAPINE 7.5 MG TABLET. PO SCH ×2 (20:31→21:00)
--- NOTE | 2021-08-10 20:46 | PDOC ---
Exam Note: Prasanna Note: This note is a late entry for 08/08/2021 covers elements not covered in my initial note. Subjective: The patient was seen individually in the evening of 08/08/2021 with Tristen SWIFT, discussed and reviewed the chart. The patient slept 6 hours previous night. Patient refused her medications during the day though she took them yesterday. Review of Systems: Hard of hearing. No CV, , pulmonary, eye system symptoms on review. She repeatedly was asking me about discharge plans. I addressed with her the fact that we are adjusting her psychotropics. At times she feigns hearing loss. Mental Status Exam: The patient is oriented to herself and situation. Speech coherent, repetitive at times. Abstraction fair. Computation impaired. Language function intact. Mood and affect somewhat anxious, labile. Laboratory Data: Reviewed. Impression: Schizoaffective disorder bipolar type with psychotic features. Anxiety disorder unspecified. Impulse control disorder unspecified. Plan: Continue rest psychotropics unchanged. She has been started on Synthroid since TSH is 105.9. We will defer this to Dr. Nam. Assessment: Vital Signs/I&O: Vital Signs Date Time Temp Pulse Resp B/P (MAP) Pulse Ox O2 Delivery O2 Flow Rate FiO2 08/10/21 20:08 80 111/71 (84) 08/10/21 15:26 98.0 19 96 08/10/21 05:56 Room Air I & O 08/09/21 08/09/21 08/10/21 15:00 23:00 07:00 Intake Total 600 ml 480 ml Balance 600 ml 480 ml Current Medications: Meds: Current Medications Medications (Trade) Dose Ordered Sig/Ervin Route PRN Reason Start Time Stop Time Status Last Admin Dose Admin Ibuprofen (Motrin) 600 mg PRN Q6HRS PRN PO PAIN 08/02/21 16:45 08/03/21 16:14 DC 08/02/21 23:17 Levothyroxine Sodium (Synthroid) 75 mcg DAILY06 PO 08/03/21 06:00 08/10/21 05:37 Olanzapine (ZyPREXA) 5 mg PRN Q4HRS PRN PO AGITATION 08/02/21 16:45 08/02/21 22:47 DC Lactobacillus Rhamnosus (Culturelle) 1 cap DAILY PO 08/03/21 09:00 08/10/21 09:00 Multi-Ingred Cream/Lotion/Oil/ Oint (Hydrocerin) 1 rachel BID TP 08/02/21 21:00 08/03/21 19:28 DC Mupirocin (Bactroban) 1 rachel DAILY TP 08/03/21 09:00 08/03/21 16:16 DC Acetaminophen (Tylenol) 650 mg PRN Q6HRS PRN PO MILD PAIN / TEMP > 100.3'F 08/02/21 16:45 08/04/21 23:56 Multi-Ingredient Ointment (Analgesic [place]) 1 rachel PRN QID PRN TP MUSCLE PAIN 08/02/21 16:45 Al Hydroxide/Mg Hydroxide (Mylanta Plus Xs) 15 ml PRN AFTMEALHC PRN PO DYSPEPSIA 08/02/21 16:45 Magnesium Hydroxide (Milk Of Magnesia) 2,400 mg PRN QHS PRN PO CONSTIPATION 08/02/21 16:45 Influenza Virus Vaccine Quadrival (Flulaval Quad [id number] Syringe) 0.5 ml ONCE ONCE VAX IM 08/02/21 19:00 08/02/21 19:01 DC 08/03/21 12:43 Olanzapine (ZyPREXA) 2.5 mg PRN Q2HRS PRN PO AGITATION 08/02/21 23:00 08/02/21 23:24 DC Olanzapine (ZyPREXA ZYDIS) 2.5 mg PRN Q2HR PRN PO PSYCHOSIS 08/02/21 23:30 08/06/21 07:39 Lactic Acid (Lac-Hydrin) 1 rachel BID TP 08/03/21 21:00 08/09/21 08:54 Multi-Ingred Cream/Lotion/Oil/ Oint (Hydrocerin) 1 rachel PRN BID PRN TP DRY SKIN 08/03/21 19:30 Mirtazapine (Remeron) 7.5 mg QHS PO 08/03/21 21:00 08/10/21 20:31 Divalproex Sodium (Depakote Sprinkles) 500 mg QHS PO 08/03/21 21:00 08/10/21 17:54 DC 08/09/21 20:34 Trazodone HCl (Desyrel) 50 mg PRN QHS PRN PO INSOMNIA, MAY REPEAT X1 08/03/21 20:45 08/05/21 20:57 Risperidone (RisperDAL M) 0.5 mg DAILY PO 08/04/21 09:00 08/08/21 11:09 DC 08/07/21 09:52 Levofloxacin (Levaquin) 250 mg DAILY06 PO 08/07/21 06:00 08/16/21 22:00 08/10/21 05:37 Risperidone (RisperDAL M) 0.75 mg QHS PO 08/06/21 21:00 08/10/21 20:31 Divalproex Sodium (Depakote Sprinkles) 500 mg BID PO 08/10/21 21:00 08/10/21 20:31 Current Medications Medications (Trade) Dose Ordered Sig/Ervin Route PRN Reason Start Time Stop Time Status Last Admin Dose Admin Divalproex Sodium (Depakote Sprinkles) 500 mg BID PO 08/10/21 21:00 08/10/21 20:31 I have reviewed the current psychotropics carefully including drug interactions. Risk benefit ratio favors no change other than as noted in my dictated progress note. Diagnosis: Problems: (1) Schizoaffective disorder, bipolar type (2) Impulse control disorder, unspecified (3) Anxiety disorder, unspecified (4) Bipolar disorder, curr episode mixed, severe, with psychotic features ENOCH YBARRA MD Aug 10, 2021 20:46
--- NOTE | 2021-08-10 20:59 | PDOC ---
Exam Note: Prasanna Note: This note is a late entry for 08/09/2021 covers elements not covered in my initial note. Subjective: The patient was seen individually in the evening of 08/09/2021 with Litzy SWIFT, discussed and reviewed the chart. The patient slept 5 hours previous night. Patient has been isolative, refused physical exam per nursing staff and was making slight comments at the nursing staff. She did better after her room was moved to the other hallway. Review of Systems: Hard of hearing. No CV, , pulmonary, eye system symptoms on review. Mental Status Exam: The patient is oriented to herself and situation. Speech coherent, rapid at times. Abstraction fair. Computation impaired. Language function intact. Mood and affect somewhat anxious, labile, other times withdrawn. Laboratory Data: Reviewed. Impression: Schizoaffective disorder bipolar type with psychotic features. Anxiety disorder unspecified. Impulse control disorder unspecified. Plan: Maintain rest psychotropics unchanged, Risperdal, Depakote, Remeron, trazodone and Zyprexa p.r.n.. We will defer treatment of her severe hypothyroidism to Dr. Nam. Assessment: Vital Signs/I&O: Vital Signs Date Time Temp Pulse Resp B/P (MAP) Pulse Ox O2 Delivery O2 Flow Rate FiO2 08/10/21 20:08 80 111/71 (84) 08/10/21 15:26 98.0 19 96 08/10/21 05:56 Room Air I & O 08/09/21 08/09/21 08/10/21 15:00 23:00 07:00 Intake Total 600 ml 480 ml Balance 600 ml 480 ml Current Medications: Meds: Current Medications Medications (Trade) Dose Ordered Sig/Ervin Route PRN Reason Start Time Stop Time Status Last Admin Dose Admin Ibuprofen (Motrin) 600 mg PRN Q6HRS PRN PO PAIN 08/02/21 16:45 08/03/21 16:14 DC 08/02/21 23:17 Levothyroxine Sodium (Synthroid) 75 mcg DAILY06 PO 08/03/21 06:00 08/10/21 05:37 Olanzapine (ZyPREXA) 5 mg PRN Q4HRS PRN PO AGITATION 08/02/21 16:45 08/02/21 22:47 DC Lactobacillus Rhamnosus (Culturelle) 1 cap DAILY PO 08/03/21 09:00 08/10/21 09:00 Multi-Ingred Cream/Lotion/Oil/ Oint (Hydrocerin) 1 rachel BID TP 08/02/21 21:00 08/03/21 19:28 DC Mupirocin (Bactroban) 1 rachel DAILY TP 08/03/21 09:00 08/03/21 16:16 DC Acetaminophen (Tylenol) 650 mg PRN Q6HRS PRN PO MILD PAIN / TEMP > 100.3'F 08/02/21 16:45 08/04/21 23:56 Multi-Ingredient Ointment (Analgesic [place]) 1 rachel PRN QID PRN TP MUSCLE PAIN 08/02/21 16:45 Al Hydroxide/Mg Hydroxide (Mylanta Plus Xs) 15 ml PRN AFTMEALHC PRN PO DYSPEPSIA 08/02/21 16:45 Magnesium Hydroxide (Milk Of Magnesia) 2,400 mg PRN QHS PRN PO CONSTIPATION 08/02/21 16:45 Influenza Virus Vaccine Quadrival (Flulaval Quad [id number] Syringe) 0.5 ml ONCE ONCE VAX IM 08/02/21 19:00 08/02/21 19:01 DC 08/03/21 12:43 Olanzapine (ZyPREXA) 2.5 mg PRN Q2HRS PRN PO AGITATION 08/02/21 23:00 08/02/21 23:24 DC Olanzapine (ZyPREXA ZYDIS) 2.5 mg PRN Q2HR PRN PO PSYCHOSIS 08/02/21 23:30 08/06/21 07:39 Lactic Acid (Lac-Hydrin) 1 rachel BID TP 08/03/21 21:00 08/09/21 08:54 Multi-Ingred Cream/Lotion/Oil/ Oint (Hydrocerin) 1 rachel PRN BID PRN TP DRY SKIN 08/03/21 19:30 Mirtazapine (Remeron) 7.5 mg QHS PO 08/03/21 21:00 08/10/21 20:31 Divalproex Sodium (Depakote Sprinkles) 500 mg QHS PO 08/03/21 21:00 08/10/21 17:54 DC 08/09/21 20:34 Trazodone HCl (Desyrel) 50 mg PRN QHS PRN PO INSOMNIA, MAY REPEAT X1 08/03/21 20:45 08/05/21 20:57 Risperidone (RisperDAL M) 0.5 mg DAILY PO 08/04/21 09:00 08/08/21 11:09 DC 08/07/21 09:52 Levofloxacin (Levaquin) 250 mg DAILY06 PO 08/07/21 06:00 08/16/21 22:00 08/10/21 05:37 Risperidone (RisperDAL M) 0.75 mg QHS PO 08/06/21 21:00 08/10/21 20:31 Divalproex Sodium (Depakote Sprinkles) 500 mg BID PO 08/10/21 21:00 08/10/21 20:31 Current Medications Medications (Trade) Dose Ordered Sig/Ervin Route PRN Reason Start Time Stop Time Status Last Admin Dose Admin Divalproex Sodium (Depakote Sprinkles) 500 mg BID PO 08/10/21 21:00 08/10/21 20:31 I have reviewed the current psychotropics carefully including drug interactions. Risk benefit ratio favors no change other than as noted in my dictated progress note. Diagnosis: Problems: (1) Schizoaffective disorder, bipolar type (2) Impulse control disorder, unspecified (3) Anxiety disorder, unspecified (4) Bipolar disorder, curr episode mixed, severe, with psychotic features ENOCH YBARRA MD Aug 10, 2021 20:59
--- NOTE | 2021-08-10 20:59 | PDOC ---
Exam Note: Prasanna Note: Please also refer to the separate dictated note~for this date of service dictated separately.~Patient seen individually. Discussed the patient with Nursing staff reviewed the chart.~Reviewed interim history and current functioning. Reviewed vital signs,~Labs/ Radiology~and current medications noted below. Continue current treatment with the changes noted in the dictated addendum note Assessment: Vital Signs/I&O: Vital Signs Date Time Temp Pulse Resp B/P (MAP) Pulse Ox O2 Delivery O2 Flow Rate FiO2 08/10/21 20:08 80 111/71 (84) 08/10/21 15:26 98.0 19 96 08/10/21 05:56 Room Air I & O 08/09/21 08/09/21 08/10/21 15:00 23:00 07:00 Intake Total 600 ml 480 ml Balance 600 ml 480 ml Current Medications: Meds: Current Medications Medications (Trade) Dose Ordered Sig/Ervin Route PRN Reason Start Time Stop Time Status Last Admin Dose Admin Divalproex Sodium (Depakote Sprinkles) 500 mg BID PO 08/10/21 21:00 08/10/21 20:31 I have reviewed the current psychotropics carefully including drug interactions. Risk benefit ratio favors no change other than as noted in my dictated progress note. Diagnosis: Problems: (1) Schizoaffective disorder, bipolar type (2) Impulse control disorder, unspecified (3) Anxiety disorder, unspecified (4) Bipolar disorder, curr episode mixed, severe, with psychotic features ENOCH YBARRA MD Aug 10, 2021 20:59
--- NOTE | 2021-08-10 23:54 | NUR ---
Pt located in her room this evening. Pt picked through her HS medications, deciding which medication she would take. Pt compliant with Depakote and Risperdal. Pt refused Remeron stating that she "did not need sleep." Pt stated that she would take the Risperdal because "it is empty anyway." No agitation or aggression.
[2021-08-11] MEDS: LEVOTHYROXINE 75 MCG TABLET PO SCH (05:13)
[2021-08-11] MEDS: levoFLOXacin 250 MG TABLET PO SCH (05:13)
--- NOTE | 2021-08-11 05:17 | NUR ---
Pt refused 0600 Levaquin stating that the medication "would make her dumb." Pt stated that if she "were as dumb as me, she would kill herself."
[2021-08-11 06:28] VITALS: BP 105/69
[2021-08-11] MEDS: LACTOBACILLUS RHAMNOSUS GG 1 CAPSULE. PO SCH (08:43)
[2021-08-11] MEDS: DIVALPROEX 125 MG CAP.SPRINK PO SCH ×2 (08:43→19:59)
[2021-08-11] MEDS: AMMONIUM LACTATE 12% TOPICAL LOTION 226GM BOTTLE. TP SCH ×2 (09:00→20:00)
--- NOTE | 2021-08-11 15:44 | NUR ---
Nursing notes: Patient in dinning room for morning medications & assessment. She was highly encouraged to take medications. She was resistive to shower and creams. She was weighting with transfers and pretending to pass out, additionally she was acting as if she could not hear. Patient frequently irritable and demanding towards staff. She does not interact with peers. Patient refused vitals. She ambulates independently with walker. She is currently in day room sitting in chair. Will continue to monitor. Addendum: 08/11/21 at 1825 by ESTHER CASTELAN RN RN Patient also picking wounds on legs.
[2021-08-11] MEDS: risperiDONE ODT 0.5 MG TAB.RAPDIS. PO SCH (19:59)
[2021-08-11] MEDS: MIRTAZAPINE 7.5 MG TABLET. PO SCH (19:59)
--- NOTE | 2021-08-11 20:30 | PDOC ---
Exam Note: Prasanna Note: Please also refer to the separate dictated note~for this date of service dictated separately.~Patient seen individually. Discussed the patient with Nursing staff reviewed the chart.~Reviewed interim history and current functioning. Reviewed vital signs,~Labs/ Radiology~and current medications noted below. Continue current treatment with the changes noted in the dictated addendum note Assessment: Vital Signs/I&O: Vital Signs Date Time Temp Pulse Resp B/P (MAP) Pulse Ox O2 Delivery O2 Flow Rate FiO2 08/11/21 06:28 97.6 82 18 105/69 (81) 94 08/10/21 05:56 Room Air I & O 08/10/21 08/10/21 08/11/21 15:00 23:00 07:00 Intake Total 720 ml 360 ml Balance 720 ml 360 ml Current Medications: Meds: Current Medications Medications (Trade) Dose Ordered Sig/Ervin Route PRN Reason Start Time Stop Time Status Last Admin Dose Admin Ibuprofen (Motrin) 600 mg PRN Q6HRS PRN PO PAIN 08/02/21 16:45 08/03/21 16:14 DC 08/02/21 23:17 Levothyroxine Sodium (Synthroid) 75 mcg DAILY06 PO 08/03/21 06:00 08/11/21 05:13 Olanzapine (ZyPREXA) 5 mg PRN Q4HRS PRN PO AGITATION 08/02/21 16:45 08/02/21 22:47 DC Lactobacillus Rhamnosus (Culturelle) 1 cap DAILY PO 08/03/21 09:00 08/11/21 08:43 Multi-Ingred Cream/Lotion/Oil/ Oint (Hydrocerin) 1 rachel BID TP 08/02/21 21:00 08/03/21 19:28 DC Mupirocin (Bactroban) 1 rachel DAILY TP 08/03/21 09:00 08/03/21 16:16 DC Acetaminophen (Tylenol) 650 mg PRN Q6HRS PRN PO MILD PAIN / TEMP > 100.3'F 08/02/21 16:45 08/04/21 23:56 Multi-Ingredient Ointment (Analgesic [place]) 1 rachel PRN QID PRN TP MUSCLE PAIN 08/02/21 16:45 Al Hydroxide/Mg Hydroxide (Mylanta Plus Xs) 15 ml PRN AFTMEALHC PRN PO DYSPEPSIA 08/02/21 16:45 Magnesium Hydroxide (Milk Of Magnesia) 2,400 mg PRN QHS PRN PO CONSTIPATION 08/02/21 16:45 Influenza Virus Vaccine Quadrival (Flulaval Quad Syringe) 0.5 ml ONCE ONCE VAX IM 08/02/21 19:00 08/02/21 19:01 DC 08/03/21 12:43 Olanzapine (ZyPREXA) 2.5 mg PRN Q2HRS PRN PO AGITATION 08/02/21 23:00 08/02/21 23:24 DC Olanzapine (ZyPREXA ZYDIS) 2.5 mg PRN Q2HR PRN PO PSYCHOSIS 08/02/21 23:30 08/06/21 07:39 Lactic Acid (Lac-Hydrin) 1 rachel BID TP 08/03/21 21:00 08/11/21 09:00 Multi-Ingred Cream/Lotion/Oil/ Oint (Hydrocerin) 1 rachel PRN BID PRN TP DRY SKIN 08/03/21 19:30 Mirtazapine (Remeron) 7.5 mg QHS PO 08/03/21 21:00 08/11/21 19:59 Divalproex Sodium (Depakote Sprinkles) 500 mg QHS PO 08/03/21 21:00 08/10/21 17:54 DC 08/09/21 20:34 Trazodone HCl (Desyrel) 50 mg PRN QHS PRN PO INSOMNIA, MAY REPEAT X1 08/03/21 20:45 08/05/21 20:57 Risperidone (RisperDAL M) 0.5 mg DAILY PO 08/04/21 09:00 08/08/21 11:09 DC 08/07/21 09:52 Levofloxacin (Levaquin) 250 mg DAILY06 PO 08/07/21 06:00 08/16/21 22:00 08/11/21 05:13 Risperidone (RisperDAL M) 0.75 mg QHS PO 08/06/21 21:00 08/11/21 19:59 Divalproex Sodium (Depakote Sprinkles) 500 mg BID PO 08/10/21 21:00 08/11/21 19:59 Current Medications Medications (Trade) Dose Ordered Sig/Ervin Route PRN Reason Start Time Stop Time Status Last Admin Dose Admin Divalproex Sodium (Depakote Sprinkles) 500 mg BID PO 08/10/21 21:00 08/11/21 19:59 I have reviewed the current psychotropics carefully including drug interactions. Risk benefit ratio favors no change other than as noted in my dictated progress note. Diagnosis: Problems: (1) Schizoaffective disorder, bipolar type (2) Impulse control disorder, unspecified (3) Anxiety disorder, unspecified (4) Bipolar disorder, curr episode mixed, severe, with psychotic features ENOCH YBARRA MD Aug 11, 2021 20:30
--- NOTE | 2021-08-11 23:34 | NUR ---
Pt irritable and argumentative this evening. Pt up at nurses station window, banging and demanding attention. Pt picked through HS medications, taking Depakote and Risperdal whole. Pt again refused Remeron. This RN attempted to assess pt, but pt yelled back "get away from me. I don't want a rash." Pt currently sleeping.
--- NOTE | 2021-08-12 00:18 | CONS ---
DATE OF CONSULTATION: 08/07/2021 NEUROLOGY CONSULTATION REFERRING PHYSICIAN: Dr. Alan. REASON FOR CONSULTATION: Rule out hydrocephalus. HISTORY OF PRESENT ILLNESS: This is a 75-year-old right-handed female who was admitted to [facility] on 08/02/2021 on account of hallucinations with intermittent psychosis. The patient has been diagnosed with schizoaffective disorders, bipolar with intermittent psychosis. She was a resident at [facility] and was transferred for inpatient psychiatric care at this facility. A neuro consult was requested because the patient had abnormal head CT scan suggestive of hydrocephalus. The patient is alert and able to communicate. She stated she has been using a walker for ambulation, but she did not report any falls. She also denies urinary incontinence, but she admitted to being forgetful. Currently, she denies headaches, visual disturbances, nausea, vomiting, chest pain, shortness of breath or palpitation, dysarthria or dysphagia. 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 PAST PSYCHIATRIC HISTORY: Significant for schizoaffective disorders with bipolar disorder as well. PAST SURGICAL HISTORY: Positive for total hysterectomy. FAMILY HISTORY: Noncontributory. SOCIAL HISTORY: The patient is a resident at [facility]. She denies smoking, alcohol use or illicit drug use. CURRENT HOME MEDICATIONS: Depakote 500 mg b.i.d., Levaquin 250 mg daily, risperidone 0.75 mg at bedtime, mirtazapine 7.5 mg at bedtime, trazodone 50 mg at bedtime p.r.n. for insomnia, levothyroxine 75 mcg p.o. daily, olanzapine 2.5 mg p.r.n. for agitation, magnesium hydroxide, and Tylenol. ALLERGIES: No known drug allergies. PHYSICAL EXAMINATION: GENERAL: Well-developed, well-nourished female in no acute distress. She weighs 69.4 kilos. VITAL SIGNS: Blood pressure 125/89, respiratory rate 20, pulse is 86, temperature 97.8, oxygen saturation 96% on room air. HEENT: Normocephalic, atraumatic, otherwise unremarkable. NECK: Supple, negative for carotid bruit, lymphadenopathy or thyromegaly. LUNGS: Clear to A and P. CARDIOVASCULAR: Regular rate and rhythm. Normal S1, S2. There is no S3, S4 or murmur. ABDOMEN: Soft. Bowel sounds positive. EXTREMITIES: Consistent with bilateral lymphoedema and the pulse is very weak. NEUROLOGIC: Mental status: The patient is alert and oriented to place and person. Speech is fluent. There is no language dysfunction. The patient recall 2/3 immediately and 1/3 after 1 and 3 minutes. Judgment and abstracting thinkings are fair. The patient denies hallucination or delusion. At this time. Cranial nerves: Visual carmen appeared to be intact. The pupils are reactive to light and accommodation. The extraocular movements are intact. There is no nystagmus. There is no facial motor or sensory deficit. Hearing appeared to be intact. The palate is elevated symmetrically. Sternocleidomastoid muscles are powerful bilaterally. The patient shrugs her shoulders symmetrically and protrudes her tongue in the midline without fasciculation or atrophy. Motor examination: No focal muscle bulk wasting. The tone is normal. The strength is 4/5 throughout. Sensory examination revealed normal pinprick, light touch, vibratory and position senses. Deep tendon reflexes were asymmetric and hypoactive with absent Achilles responses. Gait: The patient uses a walker for ambulation, but she is able to walk in the room without assistance. DIAGNOSTIC DATA: A head CT scan performed on 08/06/2021 revealed no acute intracranial process, but it showed moderate enlargement of the ventricle and questionable normal pressure hydrocephalus. X-ray of the pelvis revealed suspected healing of a healed right sacral fracture and inferior right pubic ramus and anterior bone fracture. LABORATORY DATA: From 08/06/2021 CBC revealed white blood cells of 6.1 thousand, hemoglobin 11.8, hematocrit 35.5, platelet count 303,000. Chemistry from 08/06/2021 revealed sodium 136, potassium 4.3, chloride 105, CO2 of 26, BUN 18, creatinine 0.9, glucose 108 and calcium 9.2. Liver enzymes are normal. Free T4 is 0.36, but T4 is low at 1.2. Urinalysis is consistent with urinary tract infections with white blood cells of 11-20, but positive urine nitrite and negative urine leukocyte esterase. Valproic acid level is very low, below 3 and COVID-19 PCR not detected. IMPRESSION: 1. Frequent falls with gait disturbances, but negative for urinary incontinence with a head CT scan suspected of a normal pressure hydrocephalus. 2. History of schizoaffective disorder, bipolar disorder and possible anxiety disorder. 3. Hypothyroidism. RECOMMENDATION: 1. Continue with current medical and psychiatric care. 2. Physical therapy evaluation. 3. I do not think the patient is a candidate for a OFFICE MESSENGER shunt for suspected normal pressure hydrocephalus. STORM DR: Princess TID: [id number]
[2021-08-12] MEDS: levoFLOXacin 250 MG TABLET PO SCH (05:53)
[2021-08-12] MEDS: LEVOTHYROXINE 75 MCG TABLET PO SCH (05:53)
[2021-08-12 06:02] VITALS: BP 138/72
[2021-08-12] MEDS: LACTOBACILLUS RHAMNOSUS GG 1 CAPSULE. PO SCH (08:16)
[2021-08-12] MEDS: AMMONIUM LACTATE 12% TOPICAL LOTION 226GM BOTTLE. TP SCH ×2 (08:17→20:29)
[2021-08-12] MEDS: DIVALPROEX 125 MG CAP.SPRINK PO SCH (08:17)
--- NOTE | 2021-08-12 12:41 | NUR ---
Treatment Team update: Pt is eating 75% of meals and sleeping on average 5.5 hours per night. Pt continues to be argumentative, demanding and non-compliant with staff directions/medications. Staff have coined pt to have selective hearing and report multiple attempts in giving pt meds. When given whole, she will choose certain one and refused others, and when crushed/place in pudding or food, she spits it out; this morning she refused to open her mouth. Nursing discussed getting the liquid forms of medications which will make refusal more difficult. Pt has not participated in any group activities. Pt does continue to have wound care for lymphodema and open wounds. Pt is on Levaquin for a UTI, last dose is 08/16; according to the hospitalist, pt may have colon cancer which showed in pt urine and will need to follow up with the specialist. Pt is currently on Risperdal 0.75mg at HS, Depakene 500mg BID (VPA <3 with labs due 08/14), and Remeron solutab 7.5mg q HS. Pt does have PRN orders for Trazodone 50mg q HS, may repeat x1 and Zyprexa Zydis 2.5mg q 2hrs/max dose 10mg in 24 hours. SW will continue to work with pt family and facility; ARIANNA for 10 days.
--- NOTE | 2021-08-12 13:02 | NUR ---
WEEKLY ACTIVITY THERAPY NOTE Date of Admission: 08/02/21 Date of AT Assessment: 08/05 Precipitating behaviors that initiated intake and admission: Agitation, attempting to elope, resisting cares/ADLs, yelling at staff, layering clothing Goal aimed: increase stress management and relaxation skills Initial Goal:Pt will participate in at least three Activity Therapy sessions before discharge Weekly progress towards goal: did not achieve Group participation level: none Weekly highlights: moved to group therapy side Behaviors observed: rambling, nonsensical Plan: no change to goal Beneficial adaptations:
--- NOTE | 2021-08-12 15:23 | NUR ---
Nsg Note; Jill is labile and suspicious of others. She reacted to me touching her sleeve so to scan her wristband by yelling at me to keep my germs and bugs to myself. She took one pill whole and the rest were administered sublingually. Doing a meditative group where everyone was quiet, she repeatedly started laughing maniacally and startled the other patients. Her hearing difficulty comes and goes making me suspect that her [place] issues are at least partially a behavior.
[2021-08-12 15:45] VITALS: BP 115/80
[2021-08-12] MEDS: risperiDONE ODT 0.5 MG TAB.RAPDIS. PO SCH (20:30)
[2021-08-12] MEDS: VALPROATE ACID 250 MG/5 ML ORAL SOLUTION PO SCH (20:30)
[2021-08-12] MEDS: MIRTAZAPINE 7.5 MG TABLET. PO SCH (20:30)
--- NOTE | 2021-08-12 20:48 | PDOC ---
Exam Note: Prasanna Note: This note is a late entry for 08/10/2021 covers elements not covered in my initial note. Subjective: The patient was seen individually in the evening of 08/10/2021 with Litzy SWIFT, discussed and reviewed the chart. The patient slept 3 hours previous night. Patient refused her a.m. medications, threw her medications, took them later. If nursing staff is very clear with their instructions with her, she seems to do better. She did not sleep very well last night and was verbally aggressive with the son over the telephone. Later in the day she was hitting and screaming at the female nursing staff and threw her telephone at the nursing staff. Valproic acid level is less than 30 on 08/06, currently on Depakote 250 mg b.i.d. Review of Systems: Ambulation impaired with walker. She is hard of hearing. No CV, , pulmonary, eye system symptoms on review. Mental Status Exam: The patient is oriented to herself and situation. Speech coherent, somewhat repetitive. Abstraction fair. Computation impaired. Language function intact. Mood and affect withdrawn. Laboratory Data: Reviewed. Impression: Schizoaffective disorder bipolar type with psychotic features. Anxiety disorder unspecified. Impulse control disorder unspecified. Plan: Increase Depakote to 500 mg b.i.d. Check CBC, CMP, valproic acid level and ammonia level in 3 days. Continue rest psychotropics unchanged for now. Assessment: Vital Signs/I&O: Vital Signs Date Time Temp Pulse Resp B/P (MAP) Pulse Ox O2 Delivery O2 Flow Rate FiO2 08/12/21 15:45 98.3 80 20 115/80 (92) 95 08/12/21 06:02 Room Air I & O 08/11/21 08/11/21 08/12/21 15:00 23:00 07:00 Intake Total 840 ml 240 ml Balance 840 ml 240 ml Labs: Laboratory Tests Test 08/12/21 05:58 Free Thyroxine 0.53 ng/dL (0.76-1.46) L Thyroxine (T4) 3.7 ug/dL (4.5-12.0) L Current Medications: Meds: Laboratory Tests Test 08/12/21 05:58 Free Thyroxine 0.53 ng/dL Thyroxine (T4) 3.7 ug/dL Current Medications Medications (Trade) Dose Ordered Sig/Ervin Route PRN Reason Start Time Stop Time Status Last Admin Dose Admin Ibuprofen (Motrin) 600 mg PRN Q6HRS PRN PO PAIN 08/02/21 16:45 08/03/21 16:14 DC 08/02/21 23:17 Levothyroxine Sodium (Synthroid) 75 mcg DAILY06 PO 08/03/21 06:00 08/12/21 05:53 Olanzapine (ZyPREXA) 5 mg PRN Q4HRS PRN PO AGITATION 08/02/21 16:45 08/02/21 22:47 DC Lactobacillus Rhamnosus (Culturelle) 1 cap DAILY PO 08/03/21 09:00 08/12/21 08:16 Multi-Ingred Cream/Lotion/Oil/ Oint (Hydrocerin) 1 rachel BID TP 08/02/21 21:00 08/03/21 19:28 DC Mupirocin (Bactroban) 1 rachel DAILY TP 08/03/21 09:00 08/03/21 16:16 DC Acetaminophen (Tylenol) 650 mg PRN Q6HRS PRN PO MILD PAIN / TEMP > 100.3'F 08/02/21 16:45 08/04/21 23:56 Multi-Ingredient Ointment (Analgesic [place]) 1 rachel PRN QID PRN TP MUSCLE PAIN 08/02/21 16:45 Al Hydroxide/Mg Hydroxide (Mylanta Plus Xs) 15 ml PRN AFTMEALHC PRN PO DYSPEPSIA 08/02/21 16:45 Magnesium Hydroxide (Milk Of Magnesia) 2,400 mg PRN QHS PRN PO CONSTIPATION 08/02/21 16:45 Influenza Virus Vaccine Quadrival (Flulaval Quad 2709-0352 Syringe) 0.5 ml ONCE ONCE VAX IM 08/02/21 19:00 08/02/21 19:01 DC 08/03/21 12:43 Olanzapine (ZyPREXA) 2.5 mg PRN Q2HRS PRN PO AGITATION 08/02/21 23:00 08/02/21 23:24 DC Olanzapine (ZyPREXA ZYDIS) 2.5 mg PRN Q2HR PRN PO PSYCHOSIS 08/02/21 23:30 08/06/21 07:39 Lactic Acid (Lac-Hydrin) 1 rachel BID TP 08/03/21 21:00 08/12/21 08:17 Multi-Ingred Cream/Lotion/Oil/ Oint (Hydrocerin) 1 rachel PRN BID PRN TP DRY SKIN 08/03/21 19:30 Mirtazapine (Remeron) 7.5 mg QHS PO 08/03/21 21:00 08/12/21 20:30 Divalproex Sodium (Depakote Sprinkles) 500 mg QHS PO 08/03/21 21:00 08/10/21 17:54 DC 08/09/21 20:34 Trazodone HCl (Desyrel) 50 mg PRN QHS PRN PO INSOMNIA, MAY REPEAT X1 08/03/21 20:45 08/05/21 20:57 Risperidone (RisperDAL M) 0.5 mg DAILY PO 08/04/21 09:00 08/08/21 11:09 DC 08/07/21 09:52 Levofloxacin (Levaquin) 250 mg DAILY06 PO 08/07/21 06:00 08/16/21 22:00 08/12/21 05:53 Risperidone (RisperDAL M) 0.75 mg QHS PO 08/06/21 21:00 08/12/21 20:30 Divalproex Sodium (Depakote Sprinkles) 500 mg BID PO 08/10/21 21:00 08/12/21 08:29 DC 08/12/21 08:17 Valproic Acid (Depakene) 500 mg BID PO 08/12/21 21:00 08/12/21 20:30 Current Medications Medications (Trade) Dose Ordered Sig/Ervin Route PRN Reason Start Time Stop Time Status Last Admin Dose Admin Valproic Acid (Depakene) 500 mg BID PO 08/12/21 21:00 08/12/21 20:30 I have reviewed the current psychotropics carefully including drug interactions. Risk benefit ratio favors no change other than as noted in my dictated progress note. Diagnosis: Problems: (1) Schizoaffective disorder, bipolar type (2) Impulse control disorder, unspecified (3) Anxiety disorder, unspecified (4) Bipolar disorder, curr episode mixed, severe, with psychotic features ENOCH YBARRA MD Aug 12, 2021 20:48
--- NOTE | 2021-08-12 21:09 | PDOC ---
Exam Note: Prasanna Note: This note is a late entry for 08/11/2021 covers elements not covered in my initial note. Subjective: The patient was seen individually in the evening of 08/11/2021 with Nadja SWIFT, discussed and reviewed the chart. The patient slept 6 hours previous night. Last evening the patient did take her Depakote, Risperdal, refused her Remeron. She was up at 4 a.m. today. Once again she refused some of her meds in the morning. They had to be syringed and in the evening she refused her Remeron again. She was quite anxious, restless, banging on the door to the nursing station. I met with her in her room. Review of Systems: Hard of hearing. No CV, , pulmonary, eye system symptoms on review. Mental Status Exam: The patient is oriented to herself and situation. Speech coherent, rapid at times. Abstraction fair. Computation impaired. Language function intact. Mood and affect somewhat anxious. Laboratory Data: Reviewed. Impression: Schizoaffective disorder bipolar type with psychotic features. Anxiety disorder unspecified. Impulse control disorder unspecified. Plan: Maintain rest psychotropics unchanged. Assessment: Vital Signs/I&O: Vital Signs Date Time Temp Pulse Resp B/P (MAP) Pulse Ox O2 Delivery O2 Flow Rate FiO2 08/12/21 15:45 98.3 80 20 115/80 (92) 95 08/12/21 06:02 Room Air I & O 08/11/21 08/11/21 08/12/21 15:00 23:00 07:00 Intake Total 840 ml 240 ml Balance 840 ml 240 ml Labs: Laboratory Tests Test 08/12/21 05:58 Free Thyroxine 0.53 ng/dL (0.76-1.46) L Thyroxine (T4) 3.7 ug/dL (4.5-12.0) L Current Medications: Meds: Laboratory Tests Test 08/12/21 05:58 Free Thyroxine 0.53 ng/dL Thyroxine (T4) 3.7 ug/dL Current Medications Medications (Trade) Dose Ordered Sig/Ervin Route PRN Reason Start Time Stop Time Status Last Admin Dose Admin Ibuprofen (Motrin) 600 mg PRN Q6HRS PRN PO PAIN 08/02/21 16:45 08/03/21 16:14 DC 08/02/21 23:17 Levothyroxine Sodium (Synthroid) 75 mcg DAILY06 PO 08/03/21 06:00 08/12/21 05:53 Olanzapine (ZyPREXA) 5 mg PRN Q4HRS PRN PO AGITATION 08/02/21 16:45 08/02/21 22:47 DC Lactobacillus Rhamnosus (Culturelle) 1 cap DAILY PO 08/03/21 09:00 08/12/21 08:16 Multi-Ingred Cream/Lotion/Oil/ Oint (Hydrocerin) 1 rachel BID TP 08/02/21 21:00 08/03/21 19:28 DC Mupirocin (Bactroban) 1 rachel DAILY TP 08/03/21 09:00 08/03/21 16:16 DC Acetaminophen (Tylenol) 650 mg PRN Q6HRS PRN PO MILD PAIN / TEMP > 100.3'F 08/02/21 16:45 08/04/21 23:56 Multi-Ingredient Ointment (Analgesic [place]) 1 rachel PRN QID PRN TP MUSCLE PAIN 08/02/21 16:45 Al Hydroxide/Mg Hydroxide (Mylanta Plus Xs) 15 ml PRN AFTMEALHC PRN PO DYSPEPSIA 08/02/21 16:45 Magnesium Hydroxide (Milk Of Magnesia) 2,400 mg PRN QHS PRN PO CONSTIPATION 08/02/21 16:45 Influenza Virus Vaccine Quadrival (Flulaval Quad [id number] Syringe) 0.5 ml ONCE ONCE VAX IM 08/02/21 19:00 08/02/21 19:01 DC 08/03/21 12:43 Olanzapine (ZyPREXA) 2.5 mg PRN Q2HRS PRN PO AGITATION 08/02/21 23:00 08/02/21 23:24 DC Olanzapine (ZyPREXA ZYDIS) 2.5 mg PRN Q2HR PRN PO PSYCHOSIS 08/02/21 23:30 08/06/21 07:39 Lactic Acid (Lac-Hydrin) 1 rachel BID TP 08/03/21 21:00 08/12/21 08:17 Multi-Ingred Cream/Lotion/Oil/ Oint (Hydrocerin) 1 rachel PRN BID PRN TP DRY SKIN 08/03/21 19:30 Mirtazapine (Remeron) 7.5 mg QHS PO 08/03/21 21:00 08/12/21 20:30 Divalproex Sodium (Depakote Sprinkles) 500 mg QHS PO 08/03/21 21:00 08/10/21 17:54 DC 08/09/21 20:34 Trazodone HCl (Desyrel) 50 mg PRN QHS PRN PO INSOMNIA, MAY REPEAT X1 08/03/21 20:45 08/05/21 20:57 Risperidone (RisperDAL M) 0.5 mg DAILY PO 08/04/21 09:00 08/08/21 11:09 DC 08/07/21 09:52 Levofloxacin (Levaquin) 250 mg DAILY06 PO 08/07/21 06:00 08/16/21 22:00 08/12/21 05:53 Risperidone (RisperDAL M) 0.75 mg QHS PO 08/06/21 21:00 08/12/21 20:30 Divalproex Sodium (Depakote Sprinkles) 500 mg BID PO 08/10/21 21:00 08/12/21 08:29 DC 08/12/21 08:17 Valproic Acid (Depakene) 500 mg BID PO 08/12/21 21:00 08/12/21 20:30 Current Medications Medications (Trade) Dose Ordered Sig/Ervin Route PRN Reason Start Time Stop Time Status Last Admin Dose Admin Valproic Acid (Depakene) 500 mg BID PO 08/12/21 21:00 08/12/21 20:30 I have reviewed the current psychotropics carefully including drug interactions. Risk benefit ratio favors no change other than as noted in my dictated progress note. Diagnosis: Problems: (1) Schizoaffective disorder, bipolar type (2) Impulse control disorder, unspecified (3) Anxiety disorder, unspecified (4) Bipolar disorder, curr episode mixed, severe, with psychotic features ENOCH YBARRA MD Aug 12, 2021 21:09
--- NOTE | 2021-08-12 23:00 | NUR ---
Pt withdrawn to her room this evening. Pt adamantly refused whole medications this evening. Medications crushed and mixed in a syringe with Depakene. Pt relented and was compliant with the syringed medications without agitation/ combativeness. Pt currently sleeping.
[2021-08-13] MEDS: LEVOTHYROXINE 75 MCG TABLET PO SCH (04:56)
[2021-08-13] MEDS: levoFLOXacin 250 MG TABLET PO SCH (04:56)
[2021-08-13 05:37] VITALS: BP 113/76
--- NOTE | 2021-08-13 08:39 | NUR ---
Wound/Ostomy Care Wound Type/Assessment: Wound follow up for RLE wounds. Pt has abrasions to right anterior lower leg and lateral ankle. Cleansed areas, applied foams as this is all pt wound allow. Treatment Recommendations/Plan: Continue with Foam dressing. Change every 3 days and PRN for drainage. Education provided: WC POC and PU prevention, pt will need reinforcement of teaching due to mental status. Offloading surface/device: na Recommended Referrals/Tests: na Discharge Recommendations for dressings: see above
[2021-08-13] MEDS: VALPROATE ACID 250 MG/5 ML ORAL SOLUTION PO SCH ×2 (09:00→20:04)
[2021-08-13] MEDS: LACTOBACILLUS RHAMNOSUS GG 1 CAPSULE. PO SCH (09:00)
[2021-08-13] MEDS: AMMONIUM LACTATE 12% TOPICAL LOTION 226GM BOTTLE. TP SCH ×2 (09:33→20:06)
--- NOTE | 2021-08-13 11:32 | NUR ---
Nsg Note; While sitting alone at breakfast, Jill suddenly burst out into a maniacal laugh and they to tell everyone in a sing-song voice that her daughter has a master's degree in nursing which makes her practically a doctor. She repeated this very loud and repeatedly despite being asked to quiet down. She was very argumentative when asked to take her am meds. Again she told me about her daughter with the master's degree in nursing which makes her practically a doctor and stated she needs to talk with her and all three of her doctors here at [facility] before taking the meds. She finally took them. She walked around the unit indep with her walker but doesn't engage with other patients.
[2021-08-13 15:20] VITALS: BP 125/78
[2021-08-13] MEDS: risperiDONE ODT 0.5 MG TAB.RAPDIS. PO SCH (20:04)
[2021-08-13] MEDS: MIRTAZAPINE 7.5 MG TABLET. PO SCH (20:04)
--- NOTE | 2021-08-13 20:48 | PDOC ---
Exam Note: Prasanna Note: Please also refer to the separate dictated note~for this date of service dictated separately.~Patient seen individually. Discussed the patient with Nursing staff reviewed the chart.~Reviewed interim history and current functioning. Reviewed vital signs,~Labs/ Radiology~and current medications noted below. Continue current treatment with the changes noted in the dictated addendum note Assessment: Vital Signs/I&O: Vital Signs Date Time Temp Pulse Resp B/P (MAP) Pulse Ox O2 Delivery O2 Flow Rate FiO2 08/13/21 15:20 99.0 86 16 125/78 (94) 97 Room Air I & O 08/12/21 08/12/21 08/13/21 15:00 23:00 07:00 Intake Total 600 ml 600 ml Balance 600 ml 600 ml Current Medications: Meds: Current Medications Medications (Trade) Dose Ordered Sig/Ervin Route PRN Reason Start Time Stop Time Status Last Admin Dose Admin Ibuprofen (Motrin) 600 mg PRN Q6HRS PRN PO PAIN 08/02/21 16:45 08/03/21 16:14 DC 08/02/21 23:17 Levothyroxine Sodium (Synthroid) 75 mcg DAILY06 PO 08/03/21 06:00 08/13/21 04:56 Olanzapine (ZyPREXA) 5 mg PRN Q4HRS PRN PO AGITATION 08/02/21 16:45 08/02/21 22:47 DC Lactobacillus Rhamnosus (Culturelle) 1 cap DAILY PO 08/03/21 09:00 08/13/21 09:00 Multi-Ingred Cream/Lotion/Oil/ Oint (Hydrocerin) 1 rachel BID TP 08/02/21 21:00 08/03/21 19:28 DC Mupirocin (Bactroban) 1 rachel DAILY TP 08/03/21 09:00 08/03/21 16:16 DC Acetaminophen (Tylenol) 650 mg PRN Q6HRS PRN PO MILD PAIN / TEMP > 100.3'F 08/02/21 16:45 08/04/21 23:56 Multi-Ingredient Ointment (Analgesic [place]) 1 rachel PRN QID PRN TP MUSCLE PAIN 08/02/21 16:45 Al Hydroxide/Mg Hydroxide (Mylanta Plus Xs) 15 ml PRN AFTMEALHC PRN PO DYSPEPSIA 08/02/21 16:45 Magnesium Hydroxide (Milk Of Magnesia) 2,400 mg PRN QHS PRN PO CONSTIPATION 08/02/21 16:45 Influenza Virus Vaccine Quadrival (Flulaval Quad Syringe) 0.5 ml ONCE ONCE VAX IM 08/02/21 19:00 08/02/21 19:01 DC 08/03/21 12:43 Olanzapine (ZyPREXA) 2.5 mg PRN Q2HRS PRN PO AGITATION 08/02/21 23:00 08/02/21 23:24 DC Olanzapine (ZyPREXA ZYDIS) 2.5 mg PRN Q2HR PRN PO PSYCHOSIS 08/02/21 23:30 08/06/21 07:39 Lactic Acid (Lac-Hydrin) 1 rachel BID TP 08/03/21 21:00 08/13/21 20:06 Multi-Ingred Cream/Lotion/Oil/ Oint (Hydrocerin) 1 rachel PRN BID PRN TP DRY SKIN 08/03/21 19:30 Mirtazapine (Remeron) 7.5 mg QHS PO 08/03/21 21:00 08/13/21 20:04 Divalproex Sodium (Depakote Sprinkles) 500 mg QHS PO 08/03/21 21:00 08/10/21 17:54 DC 08/09/21 20:34 Trazodone HCl (Desyrel) 50 mg PRN QHS PRN PO INSOMNIA, MAY REPEAT X1 08/03/21 20:45 08/05/21 20:57 Risperidone (RisperDAL M) 0.5 mg DAILY PO 08/04/21 09:00 08/08/21 11:09 DC 08/07/21 09:52 Levofloxacin (Levaquin) 250 mg DAILY06 PO 08/07/21 06:00 08/16/21 22:00 08/13/21 04:56 Risperidone (RisperDAL M) 0.75 mg QHS PO 08/06/21 21:00 08/13/21 20:04 Divalproex Sodium (Depakote Sprinkles) 500 mg BID PO 08/10/21 21:00 08/12/21 08:29 DC 08/12/21 08:17 Valproic Acid (Depakene) 500 mg BID PO 08/12/21 21:00 08/13/21 20:04 Current Medications Medications (Trade) Dose Ordered Sig/Ervin Route PRN Reason Start Time Stop Time Status Last Admin Dose Admin Valproic Acid (Depakene) 500 mg BID PO 08/12/21 21:00 08/13/21 20:04 I have reviewed the current psychotropics carefully including drug interactions. Risk benefit ratio favors no change other than as noted in my dictated progress note. Diagnosis: Problems: (1) Schizoaffective disorder, bipolar type (2) Impulse control disorder, unspecified (3) Anxiety disorder, unspecified (4) Bipolar disorder, curr episode mixed, severe, with psychotic features ENOCH YBARRA MD Aug 13, 2021 20:48
--- NOTE | 2021-08-14 03:24 | NUR ---
Nursing Note The patient was located in her room for her assessment and medication pass. The patient was alert to name, year and location. The patient was argumentative and irritable during all interactions with this nurse and other staff. The patient was argumentative during her medication pass but was in the end compliant and took them whole. 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 Currently awake sitting in her chair in her room.
[2021-08-14 06:07] VITALS: BP 126/86
[2021-08-14] MEDS: levoFLOXacin 250 MG TABLET PO SCH (06:07)
[2021-08-14] MEDS: LEVOTHYROXINE 75 MCG TABLET PO SCH (06:07)
[2021-08-14 06:56] LABS: BASO % 0 % (0-3); EOS # 0.1 x10^3/uL (0.0-0.7); EOS % 2 % (0-3); HEMATOCRIT 36.5 % (36.0-47.0); HEMOGLOBIN 11.9 g/dL (12.0-15.5); LYMPH # 1.2 x10^3/uL (1.0-4.8); LYMPH % 18 % (24-48); MEAN CORPUSCULAR HEMOGLOBIN 29 pg (25-35); MEAN CORPUSCULAR HGB CONC 33 g/dL (31-37); MEAN CORPUSCULAR VOLUME 88 fL (79-100); MONO # 0.6 x10^3/uL (0.0-1.1); MONO % 10 % (0-9); NEUT # 4.5 x10^3uL (1.8-7.7); NEUT % 70 % (31-73); PLATELET COUNT 281 x10^3/uL (140-400); RED BLOOD COUNT 4.12 x10^6/uL (3.50-5.40); RED CELL DISTRIBUTION WIDTH 15.6 % (11.5-14.5); WHITE BLOOD COUNT 6.4 x10^3/uL (4.0-11.0)
--- NOTE | 2021-08-14 07:04 | PDOC ---
Exam Note: Prasanna Note: This note is a late entry for 08/12/2021 covers elements not covered in my initial note. Subjective: The patient was reviewed at treatment team meeting individually in the morning on 08/12/2021 with Daniela Brewster, Lina Guallpa, and Anastasiia Devlin (social group worker), Jessi, activity therapy and Nora SWIFT, discussed and reviewed the chart. The patient slept 8-1/4 hours previous night. We had a lengthy discussion about the patients current treatment, diagnoses, transition to senior care when stable. She tends to talk in a [place] accent, argues, resistive to taking her medications, refusing certain medications, demanding, laughs inappropriately at times. She was on Levaquin for UTI. Review of Systems: Hard of hearing. No CV, , pulmonary, eye system symptoms on review. Mental Status Exam: The patient is awake, alert and oriented. Speech coherent. Abstraction fair. Computation impaired. Language function intact. Mood and affect somewhat anxious, labile. Laboratory Data: Reviewed. Impression: Schizoaffective disorder bipolar type with psychotic features. Anxiety disorder unspecified. Impulse control disorder unspecified. Plan: Change the patients Depakote Sprinkle to Depakene liquid to help with compliance. Repeat valproic acid level on 08/14. Continue rest psychotropics unchanged. Assessment: Vital Signs/I&O: Vital Signs Date Time Temp Pulse Resp B/P (MAP) Pulse Ox O2 Delivery O2 Flow Rate FiO2 08/14/21 06:07 96.8 73 16 126/86 (99) 94 08/13/21 15:20 Room Air I & O 08/13/21 08/13/21 08/14/21 15:00 23:00 07:00 Intake Total 360 ml 360 ml Balance 360 ml 360 ml Labs: Laboratory Tests Test 08/14/21 06:20 White Blood Count 6.4 x10^3/uL (4.0-11.0) Red Blood Count 4.12 x10^6/uL (3.50-5.40) Hemoglobin 11.9 g/dL (12.0-15.5) L Hematocrit 36.5 % (36.0-47.0) Mean Corpuscular Volume 88 fL (79-100) Mean Corpuscular Hemoglobin 29 pg (25-35) Mean Corpuscular Hemoglobin Concent 33 g/dL (31-37) Red Cell Distribution Width 15.6 % (11.5-14.5) H Platelet Count 281 x10^3/uL (140-400) Neutrophils (%) (Auto) 70 % (31-73) Lymphocytes (%) (Auto) 18 % (24-48) L Monocytes (%) (Auto) 10 % (0-9) H Eosinophils (%) (Auto) 2 % (0-3) Basophils (%) (Auto) 0 % (0-3) Neutrophils # (Auto) 4.5 x10^3uL (1.8-7.7) Lymphocytes # (Auto) 1.2 x10^3/uL (1.0-4.8) Monocytes # (Auto) 0.6 x10^3/uL (0.0-1.1) Eosinophils # (Auto) 0.1 x10^3/uL (0.0-0.7) Basophils # (Auto) 0.0 x10^3/uL (0.0-0.2) Ammonia < 10 mcmol/L (11-34) L Current Medications: Meds: Laboratory Tests Test 08/14/21 06:20 White Blood Count 6.4 x10^3/uL Red Blood Count 4.12 x10^6/uL Hemoglobin 11.9 g/dL Hematocrit 36.5 % Mean Corpuscular Volume 88 fL Mean Corpuscular Hemoglobin 29 pg Mean Corpuscular Hemoglobin Concent 33 g/dL Red Cell Distribution Width 15.6 % Platelet Count 281 x10^3/uL Neutrophils (%) (Auto) 70 % Lymphocytes (%) (Auto) 18 % Monocytes (%) (Auto) 10 % Eosinophils (%) (Auto) 2 % Basophils (%) (Auto) 0 % Neutrophils # (Auto) 4.5 x10^3uL Lymphocytes # (Auto) 1.2 x10^3/uL Monocytes # (Auto) 0.6 x10^3/uL Eosinophils # (Auto) 0.1 x10^3/uL Basophils # (Auto) 0.0 x10^3/uL Ammonia < 10 mcmol/L Current Medications Medications (Trade) Dose Ordered Sig/Ervin Route PRN Reason Start Time Stop Time Status Last Admin Dose Admin Ibuprofen (Motrin) 600 mg PRN Q6HRS PRN PO PAIN 10/29/21 16:45 08/03/21 16:14 DC 08/02/21 23:17 Levothyroxine Sodium (Synthroid) 75 mcg DAILY06 PO 08/03/21 06:00 08/14/21 06:07 Olanzapine (ZyPREXA) 5 mg PRN Q4HRS PRN PO AGITATION 08/02/21 16:45 08/02/21 22:47 DC Lactobacillus Rhamnosus (Culturelle) 1 cap DAILY PO 08/03/21 09:00 08/13/21 09:00 Multi-Ingred Cream/Lotion/Oil/ Oint (Hydrocerin) 1 rachel BID TP 08/02/21 21:00 08/03/21 19:28 DC Mupirocin (Bactroban) 1 rachel DAILY TP 08/03/21 09:00 08/03/21 16:16 DC Acetaminophen (Tylenol) 650 mg PRN Q6HRS PRN PO MILD PAIN / TEMP > 100.3'F 08/02/21 16:45 08/04/21 23:56 Multi-Ingredient Ointment (Analgesic [place]) 1 rachel PRN QID PRN TP MUSCLE PAIN 08/02/21 16:45 Al Hydroxide/Mg Hydroxide (Mylanta Plus Xs) 15 ml PRN AFTMEALHC PRN PO DYSPEPSIA 08/02/21 16:45 Magnesium Hydroxide (Milk Of Magnesia) 2,400 mg PRN QHS PRN PO CONSTIPATION 08/02/21 16:45 Influenza Virus Vaccine Quadrival (Flulaval Quad [id number] Syringe) 0.5 ml ONCE ONCE VAX IM 08/02/21 19:00 08/02/21 19:01 DC 08/03/21 12:43 Olanzapine (ZyPREXA) 2.5 mg PRN Q2HRS PRN PO AGITATION 08/02/21 23:00 08/02/21 23:24 DC Olanzapine (ZyPREXA ZYDIS) 2.5 mg PRN Q2HR PRN PO PSYCHOSIS 08/02/21 23:30 08/06/21 07:39 Lactic Acid (Lac-Hydrin) 1 rachel BID TP 08/03/21 21:00 08/13/21 20:06 Multi-Ingred Cream/Lotion/Oil/ Oint (Hydrocerin) 1 rachel PRN BID PRN TP DRY SKIN 08/03/21 19:30 Mirtazapine (Remeron) 7.5 mg QHS PO 08/03/21 21:00 08/13/21 20:04 Divalproex Sodium (Depakote Sprinkles) 500 mg QHS PO 08/03/21 21:00 08/10/21 17:54 DC 08/09/21 20:34 Trazodone HCl (Desyrel) 50 mg PRN QHS PRN PO INSOMNIA, MAY REPEAT X1 08/03/21 20:45 08/05/21 20:57 Risperidone (RisperDAL M) 0.5 mg DAILY PO 08/04/21 09:00 08/08/21 11:09 DC 08/07/21 09:52 Levofloxacin (Levaquin) 250 mg DAILY06 PO 08/07/21 06:00 08/16/21 22:00 08/14/21 06:07 Risperidone (RisperDAL M) 0.75 mg QHS PO 08/06/21 21:00 08/13/21 20:04 Divalproex Sodium (Depakote Sprinkles) 500 mg BID PO 08/10/21 21:00 08/12/21 08:29 DC 08/12/21 08:17 Valproic Acid (Depakene) 500 mg BID PO 08/12/21 21:00 08/13/21 20:04 I have reviewed the current psychotropics carefully including drug interactions. Risk benefit ratio favors no change other than as noted in my dictated progress note. Diagnosis: Problems: (1) Schizoaffective disorder, bipolar type (2) Impulse control disorder, unspecified (3) Anxiety disorder, unspecified (4) Bipolar disorder, curr episode mixed, severe, with psychotic features ENOCH YBARRA MD Aug 14, 2021 07:04
[2021-08-14 07:05] LABS: ALBUMIN 3.5 g/dL (3.4-5.0); ALK PHOS 116 U/L (46-116); ALT (SGPT) 18 U/L (14-59); ANION GAP 6 (6-14); AST (SGOT) 10 U/L (15-37); BLOOD UREA NITROGEN 22 mg/dL (7-20); BUN/CREATININE RATIO 28 (6-20); CALCIUM 9.4 mg/dL (8.5-10.1); CARBON DIOXIDE 31 mmol/L (21-32); CHLORIDE 103 mmol/L (98-107); CREATININE 0.8 mg/dL (0.6-1.0); GFR 69.6; GLUCOSE 92 mg/dL (70-99); POTASSIUM 4.8 mmol/L (3.5-5.1); SODIUM 140 mmol/L (136-145); TOTAL BILIRUBIN 0.2 mg/dL (0.2-1.0); TOTAL PROTEIN 7.1 g/dL (6.4-8.2)
[2021-08-14 07:06] LABS: VAL ACID 80 mcg/mL (50-100)
--- NOTE | 2021-08-14 07:26 | PDOC ---
Exam Note: Prasanna Note: This note is a late entry for 08/13/2021 covers elements not covered in my initial note. Subjective: The patient was seen individually in the evening of 08/13/2021 with Miki SWIFT, discussed and reviewed the chart. The patient slept 4-1/4 hours previous night. She is tolerating the liquid Depakene. We will check valproic acid level in the morning. She was withdrawn to her room, somewhat anxious, at times labile. She was arguing with staff that she needs to go home and as I met with her in the evening she talked at length that her daughter came has masters in nursing and is very capable of taking her of her at home. I discussed how that was not an option. Review of Systems: Impaired ambulation with walker. Hard of hearing. No CV, , pulmonary, eye system symptoms on review. Mental Status Exam: The patient is alert and oriented to herself. Speech coherent. Abstraction fair. Computation impaired. Language function intact. Mood and affect somewhat anxious. Laboratory Data: Reviewed. Impression: Schizoaffective disorder bipolar type with psychotic features. Anxiety disorder unspecified. Impulse control disorder unspecified. Plan: Maintain rest psychotropics unchanged. We discussed her desire to go home. Discussed the goal she needs to meet before transition back to lower level of care and how we are adjusting her psychotropics, answered her questions at length. Assessment: Vital Signs/I&O: Vital Signs Date Time Temp Pulse Resp B/P (MAP) Pulse Ox O2 Delivery O2 Flow Rate FiO2 08/14/21 06:07 96.8 73 16 126/86 (99) 94 08/13/21 15:20 Room Air I & O 08/13/21 08/13/21 08/14/21 15:00 23:00 07:00 Intake Total 360 ml 360 ml Balance 360 ml 360 ml Labs: Laboratory Tests Test 08/14/21 06:20 White Blood Count 6.4 x10^3/uL (4.0-11.0) Red Blood Count 4.12 x10^6/uL (3.50-5.40) Hemoglobin 11.9 g/dL (12.0-15.5) L Hematocrit 36.5 % (36.0-47.0) Mean Corpuscular Volume 88 fL (79-100) Mean Corpuscular Hemoglobin 29 pg (25-35) Mean Corpuscular Hemoglobin Concent 33 g/dL (31-37) Red Cell Distribution Width 15.6 % (11.5-14.5) H Platelet Count 281 x10^3/uL (140-400) Neutrophils (%) (Auto) 70 % (31-73) Lymphocytes (%) (Auto) 18 % (24-48) L Monocytes (%) (Auto) 10 % (0-9) H Eosinophils (%) (Auto) 2 % (0-3) Basophils (%) (Auto) 0 % (0-3) Neutrophils # (Auto) 4.5 x10^3uL (1.8-7.7) Lymphocytes # (Auto) 1.2 x10^3/uL (1.0-4.8) Monocytes # (Auto) 0.6 x10^3/uL (0.0-1.1) Eosinophils # (Auto) 0.1 x10^3/uL (0.0-0.7) Basophils # (Auto) 0.0 x10^3/uL (0.0-0.2) Sodium Level 140 mmol/L (136-145) Potassium Level 4.8 mmol/L (3.5-5.1) Chloride Level 103 mmol/L (98-107) Carbon Dioxide Level 31 mmol/L (21-32) Anion Gap 6 (6-14) Blood Urea Nitrogen 22 mg/dL (7-20) H Creatinine 0.8 mg/dL (0.6-1.0) Estimated GFR (Cockcroft-Gault) 69.6 BUN/Creatinine Ratio 28 (6-20) H Glucose Level 92 mg/dL (70-99) Calcium Level 9.4 mg/dL (8.5-10.1) Total Bilirubin 0.2 mg/dL (0.2-1.0) Aspartate Amino Transferase (AST) 10 U/L (15-37) L Alanine Aminotransferase (ALT) 18 U/L (14-59) Alkaline Phosphatase 116 U/L (46-116) Ammonia < 10 mcmol/L (11-34) L Total Protein 7.1 g/dL (6.4-8.2) Albumin 3.5 g/dL (3.4-5.0) Albumin/Globulin Ratio 1.0 (1.0-1.7) Valproic Acid Level 80 mcg/mL (50-100) Valproic Acid Last Dose Date 08/13/21 Valproic Acid Last Dose Time 2100 Current Medications: Meds: Laboratory Tests Test 08/14/21 06:20 White Blood Count 6.4 x10^3/uL Red Blood Count 4.12 x10^6/uL Hemoglobin 11.9 g/dL Hematocrit 36.5 % Mean Corpuscular Volume 88 fL Mean Corpuscular Hemoglobin 29 pg Mean Corpuscular Hemoglobin Concent 33 g/dL Red Cell Distribution Width 15.6 % Platelet Count 281 x10^3/uL Neutrophils (%) (Auto) 70 % Lymphocytes (%) (Auto) 18 % Monocytes (%) (Auto) 10 % Eosinophils (%) (Auto) 2 % Basophils (%) (Auto) 0 % Neutrophils # (Auto) 4.5 x10^3uL Lymphocytes # (Auto) 1.2 x10^3/uL Monocytes # (Auto) 0.6 x10^3/uL Eosinophils # (Auto) 0.1 x10^3/uL Basophils # (Auto) 0.0 x10^3/uL Sodium Level 140 mmol/L Potassium Level 4.8 mmol/L Chloride Level 103 mmol/L Carbon Dioxide Level 31 mmol/L Anion Gap 6 Blood Urea Nitrogen 22 mg/dL Creatinine 0.8 mg/dL Estimated GFR (Cockcroft-Gault) 69.6 BUN/Creatinine Ratio 28 Glucose Level 92 mg/dL Calcium Level 9.4 mg/dL Total Bilirubin 0.2 mg/dL Aspartate Amino Transf (AST/SGOT) 10 U/L Alanine Aminotransferase (ALT/SGPT) 18 U/L Alkaline Phosphatase 116 U/L Ammonia < 10 mcmol/L Total Protein 7.1 g/dL Albumin 3.5 g/dL Albumin/Globulin Ratio 1.0 Valproic Acid (Depakene) Level 80 mcg/mL Valproic Acid Last Dose Date 08/13/21 Valproic Acid Last Dose Time 2100 Current Medications Medications (Trade) Dose Ordered Sig/Ervin Route PRN Reason Start Time Stop Time Status Last Admin Dose Admin Ibuprofen (Motrin) 600 mg PRN Q6HRS PRN PO PAIN 08/02/21 16:45 08/03/21 16:14 DC 08/02/21 23:17 Levothyroxine Sodium (Synthroid) 75 mcg DAILY06 PO 08/03/21 06:00 08/14/21 06:07 Olanzapine (ZyPREXA) 5 mg PRN Q4HRS PRN PO AGITATION 08/02/21 16:45 08/02/21 22:47 DC Lactobacillus Rhamnosus (Culturelle) 1 cap DAILY PO 08/03/21 09:00 08/13/21 09:00 Multi-Ingred Cream/Lotion/Oil/ Oint (Hydrocerin) 1 rachel BID TP 08/02/21 21:00 08/03/21 19:28 DC Mupirocin (Bactroban) 1 rachel DAILY TP 08/03/21 09:00 08/03/21 16:16 DC Acetaminophen (Tylenol) 650 mg PRN Q6HRS PRN PO MILD PAIN / TEMP > 100.3'F 08/02/21 16:45 08/04/21 23:56 Multi-Ingredient Ointment (Analgesic [place]) 1 rachel PRN QID PRN TP MUSCLE PAIN 08/02/21 16:45 Al Hydroxide/Mg Hydroxide (Mylanta Plus Xs) 15 ml PRN AFTMEALHC PRN PO DYSPEPSIA 08/02/21 16:45 Magnesium Hydroxide (Milk Of Magnesia) 2,400 mg PRN QHS PRN PO CONSTIPATION 08/02/21 16:45 Influenza Virus Vaccine Quadrival (Flulaval Quad 1208-2140 Syringe) 0.5 ml ONCE ONCE VAX IM 08/02/21 19:00 08/02/21 19:01 DC 08/03/21 12:43 Olanzapine (ZyPREXA) 2.5 mg PRN Q2HRS PRN PO AGITATION 08/02/21 23:00 08/02/21 23:24 DC Olanzapine (ZyPREXA ZYDIS) 2.5 mg PRN Q2HR PRN PO PSYCHOSIS 08/02/21 23:30 08/06/21 07:39 Lactic Acid (Lac-Hydrin) 1 rachel BID TP 08/03/21 21:00 08/13/21 20:06 Multi-Ingred Cream/Lotion/Oil/ Oint (Hydrocerin) 1 rachel PRN BID PRN TP DRY SKIN 08/03/21 19:30 Mirtazapine (Remeron) 7.5 mg QHS PO 08/03/21 21:00 08/13/21 20:04 Divalproex Sodium (Depakote Sprinkles) 500 mg QHS PO 08/03/21 21:00 08/10/21 17:54 DC 08/09/21 20:34 Trazodone HCl (Desyrel) 50 mg PRN QHS PRN PO INSOMNIA, MAY REPEAT X1 08/03/21 20:45 08/05/21 20:57 Risperidone (RisperDAL M) 0.5 mg DAILY PO 08/04/21 09:00 08/08/21 11:09 DC 08/07/21 09:52 Levofloxacin (Levaquin) 250 mg DAILY06 PO 08/07/21 06:00 08/16/21 22:00 08/14/21 06:07 Risperidone (RisperDAL M) 0.75 mg QHS PO 08/06/21 21:00 08/13/21 20:04 Divalproex Sodium (Depakote Sprinkles) 500 mg BID PO 08/10/21 21:00 08/12/21 08:29 DC 08/12/21 08:17 Valproic Acid (Depakene) 500 mg BID PO 08/12/21 21:00 08/13/21 20:04 I have reviewed the current psychotropics carefully including drug interactions. Risk benefit ratio favors no change other than as noted in my dictated progress note. Diagnosis: Problems: (1) Schizoaffective disorder, bipolar type (2) Impulse control disorder, unspecified (3) Anxiety disorder, unspecified (4) Bipolar disorder, curr episode mixed, severe, with psychotic features ENOCH YBARRA MD Aug 14, 2021 07:26
[2021-08-14] MEDS: VALPROATE ACID 250 MG/5 ML ORAL SOLUTION PO SCH ×2 (08:23→20:23)
[2021-08-14] MEDS: LACTOBACILLUS RHAMNOSUS GG 1 CAPSULE. PO SCH (08:34)
[2021-08-14] MEDS: AMMONIUM LACTATE 12% TOPICAL LOTION 226GM BOTTLE. TP SCH ×2 (09:00→20:24)
--- NOTE | 2021-08-14 11:11 | NUR ---
Nursing note: Pt in dining room at time of AM med pass and assessment. She is argumentative about meds and refusing to take them. Depakene was poured into a small cup and I requested that she at least drank that. Pt looked at me and proceeded to take the cup and pour the liquid all over her scrambled eggs, dropped the cup and began hitting the table and exclaiming "Oopsie! It was an accident! Oh my God, it was an accident!" Depakene was pulled a second time and attempted to be given sublingually with staff x2 assist. Pt spit the depakene everywhere, and it is unknown how much of the medication she actually received. She is currently sitting quietly in her room. Will continue to monitor.
[2021-08-14 15:40] VITALS: BP 116/77
[2021-08-14] MEDS: MIRTAZAPINE 15 MG TABLET PO SCH (20:22)
[2021-08-14] MEDS: risperiDONE ODT 1 MG TAB.RAPDIS. PO SCH (20:24)
--- NOTE | 2021-08-14 21:05 | PDOC ---
Exam Note: Prasanna Note: Please also refer to the separate dictated note~for this date of service dictated separately.~Patient seen individually. Discussed the patient with Nursing staff reviewed the chart.~Reviewed interim history and current functioning. Reviewed vital signs,~Labs/ Radiology~and current medications noted below. Continue current treatment with the changes noted in the dictated addendum note Assessment: Vital Signs/I&O: Vital Signs Date Time Temp Pulse Resp B/P (MAP) Pulse Ox O2 Delivery O2 Flow Rate FiO2 08/14/21 15:40 99.0 81 18 116/77 (90) 99 08/13/21 15:20 Room Air I & O 08/13/21 08/13/21 08/14/21 15:00 23:00 07:00 Intake Total 360 ml 360 ml Balance 360 ml 360 ml Labs: Laboratory Tests Test 08/14/21 06:20 08/14/21 06:30 White Blood Count 6.4 x10^3/uL (4.0-11.0) Red Blood Count 4.12 x10^6/uL (3.50-5.40) Hemoglobin 11.9 g/dL (12.0-15.5) L Hematocrit 36.5 % (36.0-47.0) Mean Corpuscular Volume 88 fL (79-100) Mean Corpuscular Hemoglobin 29 pg (25-35) Mean Corpuscular Hemoglobin Concent 33 g/dL (31-37) Red Cell Distribution Width 15.6 % (11.5-14.5) H Platelet Count 281 x10^3/uL (140-400) Neutrophils (%) (Auto) 70 % (31-73) Lymphocytes (%) (Auto) 18 % (24-48) L Monocytes (%) (Auto) 10 % (0-9) H Eosinophils (%) (Auto) 2 % (0-3) Basophils (%) (Auto) 0 % (0-3) Neutrophils # (Auto) 4.5 x10^3uL (1.8-7.7) Lymphocytes # (Auto) 1.2 x10^3/uL (1.0-4.8) Monocytes # (Auto) 0.6 x10^3/uL (0.0-1.1) Eosinophils # (Auto) 0.1 x10^3/uL (0.0-0.7) Basophils # (Auto) 0.0 x10^3/uL (0.0-0.2) Sodium Level 140 mmol/L (136-145) Potassium Level 4.8 mmol/L (3.5-5.1) Chloride Level 103 mmol/L (98-107) Carbon Dioxide Level 31 mmol/L (21-32) Anion Gap 6 (6-14) Blood Urea Nitrogen 22 mg/dL (7-20) H Creatinine 0.8 mg/dL (0.6-1.0) Estimated GFR (Cockcroft-Gault) 69.6 BUN/Creatinine Ratio 28 (6-20) H Glucose Level 92 mg/dL (70-99) Calcium Level 9.4 mg/dL (8.5-10.1) Total Bilirubin 0.2 mg/dL (0.2-1.0) Aspartate Amino Transferase (AST) 10 U/L (15-37) L Alanine Aminotransferase (ALT) 18 U/L (14-59) Alkaline Phosphatase 116 U/L (46-116) Ammonia < 10 mcmol/L (11-34) L Total Protein 7.1 g/dL (6.4-8.2) Albumin 3.5 g/dL (3.4-5.0) Albumin/Globulin Ratio 1.0 (1.0-1.7) Valproic Acid Level 80 mcg/mL (50-100) Valproic Acid Last Dose Date 08/13/21 Valproic Acid Last Dose Time 2100 SARS-CoV-2 (PCR) Not detected (NOT DETECTD) Current Medications: Meds: Laboratory Tests Test 08/14/21 06:20 08/14/21 06:30 White Blood Count 6.4 x10^3/uL Red Blood Count 4.12 x10^6/uL Hemoglobin 11.9 g/dL Hematocrit 36.5 % Mean Corpuscular Volume 88 fL Mean Corpuscular Hemoglobin 29 pg Mean Corpuscular Hemoglobin Concent 33 g/dL Red Cell Distribution Width 15.6 % Platelet Count 281 x10^3/uL Neutrophils (%) (Auto) 70 % Lymphocytes (%) (Auto) 18 % Monocytes (%) (Auto) 10 % Eosinophils (%) (Auto) 2 % Basophils (%) (Auto) 0 % Neutrophils # (Auto) 4.5 x10^3uL Lymphocytes # (Auto) 1.2 x10^3/uL Monocytes # (Auto) 0.6 x10^3/uL Eosinophils # (Auto) 0.1 x10^3/uL Basophils # (Auto) 0.0 x10^3/uL Sodium Level 140 mmol/L Potassium Level 4.8 mmol/L Chloride Level 103 mmol/L Carbon Dioxide Level 31 mmol/L Anion Gap 6 Blood Urea Nitrogen 22 mg/dL Creatinine 0.8 mg/dL Estimated GFR (Cockcroft-Gault) 69.6 BUN/Creatinine Ratio 28 Glucose Level 92 mg/dL Calcium Level 9.4 mg/dL Total Bilirubin 0.2 mg/dL Aspartate Amino Transf (AST/SGOT) 10 U/L Alanine Aminotransferase (ALT/SGPT) 18 U/L Alkaline Phosphatase 116 U/L Ammonia < 10 mcmol/L Total Protein 7.1 g/dL Albumin 3.5 g/dL Albumin/Globulin Ratio 1.0 Valproic Acid (Depakene) Level 80 mcg/mL Valproic Acid Last Dose Date 08/13/21 Valproic Acid Last Dose Time 2100 Coronavirus (COVID-19)(PCR) Not detected Current Medications Medications (Trade) Dose Ordered Sig/Ervin Route PRN Reason Start Time Stop Time Status Last Admin Dose Admin Ibuprofen (Motrin) 600 mg PRN Q6HRS PRN PO PAIN 08/02/21 16:45 08/03/21 16:14 DC 08/02/21 23:17 Levothyroxine Sodium (Synthroid) 75 mcg DAILY06 PO 08/03/21 06:00 08/14/21 06:07 Olanzapine (ZyPREXA) 5 mg PRN Q4HRS PRN PO AGITATION 08/02/21 16:45 08/02/21 22:47 DC Lactobacillus Rhamnosus (Culturelle) 1 cap DAILY PO 08/03/21 09:00 08/13/21 09:00 Multi-Ingred Cream/Lotion/Oil/ Oint (Hydrocerin) 1 rachel BID TP 08/02/21 21:00 08/03/21 19:28 DC Mupirocin (Bactroban) 1 rachel DAILY TP 08/03/21 09:00 08/03/21 16:16 DC Acetaminophen (Tylenol) 650 mg PRN Q6HRS PRN PO MILD PAIN / TEMP > 100.3'F 08/02/21 16:45 08/04/21 23:56 Multi-Ingredient Ointment (Analgesic [place]) 1 rachel PRN QID PRN TP MUSCLE PAIN 08/02/21 16:45 Al Hydroxide/Mg Hydroxide (Mylanta Plus Xs) 15 ml PRN AFTMEALHC PRN PO DYSPEPSIA 08/02/21 16:45 Magnesium Hydroxide (Milk Of Magnesia) 2,400 mg PRN QHS PRN PO CONSTIPATION 08/02/21 16:45 Influenza Virus Vaccine Quadrival (Flulaval Quad [id number] Syringe) 0.5 ml ONCE ONCE VAX IM 08/02/21 19:00 08/02/21 19:01 DC 08/03/21 12:43 Olanzapine (ZyPREXA) 2.5 mg PRN Q2HRS PRN PO AGITATION 08/02/21 23:00 08/02/21 23:24 DC Olanzapine (ZyPREXA ZYDIS) 2.5 mg PRN Q2HR PRN PO PSYCHOSIS 08/02/21 23:30 08/06/21 07:39 Lactic Acid (Lac-Hydrin) 1 rachel BID TP 08/03/21 21:00 08/14/21 20:24 Multi-Ingred Cream/Lotion/Oil/ Oint (Hydrocerin) 1 rachel PRN BID PRN TP DRY SKIN 08/03/21 19:30 Mirtazapine (Remeron) 7.5 mg QHS PO 08/03/21 21:00 08/14/21 18:13 DC 08/13/21 20:04 Divalproex Sodium (Depakote Sprinkles) 500 mg QHS PO 08/03/21 21:00 08/10/21 17:54 DC 08/09/21 20:34 Trazodone HCl (Desyrel) 50 mg PRN QHS PRN PO INSOMNIA, MAY REPEAT X1 08/03/21 20:45 08/05/21 20:57 Risperidone (RisperDAL M) 0.5 mg DAILY PO 08/04/21 09:00 08/08/21 11:09 DC 08/07/21 09:52 Levofloxacin (Levaquin) 250 mg DAILY06 PO 08/07/21 06:00 08/16/21 22:00 08/14/21 06:07 Risperidone (RisperDAL M) 0.75 mg QHS PO 08/06/21 21:00 08/14/21 18:13 DC 08/13/21 20:04 Divalproex Sodium (Depakote Sprinkles) 500 mg BID PO 08/10/21 21:00 08/12/21 08:29 DC 08/12/21 08:17 Valproic Acid (Depakene) 500 mg BID PO 08/12/21 21:00 08/14/21 20:23 Mirtazapine (Remeron) 15 mg QHS PO 08/14/21 21:00 08/14/21 20:22 Risperidone (RisperDAL M) 1 mg QHS PO 08/14/21 21:00 08/14/21 20:24 Current Medications Medications (Trade) Dose Ordered Sig/Ervin Route PRN Reason Start Time Stop Time Status Last Admin Dose Admin Mirtazapine (Remeron) 15 mg QHS PO 08/14/21 21:00 08/14/21 20:22 Risperidone (RisperDAL M) 1 mg QHS PO 08/14/21 21:00 08/14/21 20:24 I have reviewed the current psychotropics carefully including drug interactions. Risk benefit ratio favors no change other than as noted in my dictated progress note. Diagnosis: Problems: (1) Schizoaffective disorder, bipolar type (2) Impulse control disorder, unspecified (3) Anxiety disorder, unspecified (4) Bipolar disorder, curr episode mixed, severe, with psychotic features ENOCH YBARRA MD Aug 14, 2021 21:05
--- NOTE | 2021-08-14 23:04 | NUR ---
Patient is located in her room on assumption of care, napping intermittently in a chair. She is irritable and sarcastic in interactions with staff. Her daughter called, and shortly after getting on the phone with her, patient began yelling and hung up on her. When approached for assessments, patient participated minimally, as she was busy telling me about her daughter: "I don't want her calling here again. If I hear from her, I will the call the police and the FBI. She thinks she can change me, but she can't. She can just dump my things, they probably aren't worth anything anyway. I have enough social security to last me a year, then I'll be homeless. She doesn't need to bother with me anymore." This nurse melted HS pills and mixed them with the Depakene liquid. Patient initially resistant to taking the meds, but did drink it in exchange for a bag of popcorn. She remains sitting in her chair, but is asleep at this time. Will continue to monitor.
[2021-08-15] MEDS: LEVOTHYROXINE 75 MCG TABLET PO SCH ×2 (05:12→06:00)
[2021-08-15] MEDS: levoFLOXacin 250 MG TABLET PO SCH ×2 (05:12→08:22)
[2021-08-15 06:19] VITALS: BP 101/62
--- NOTE | 2021-08-15 07:19 | PDOC ---
Exam Note: Prasanna Note: This note is a late entry for 08/14/2021 covers elements not covered in my initial note. Subjective: The patient was seen individually in the evening of 08/14/2021 with Eva SWIFT, discussed and reviewed the chart. The patient slept 3 hours previous night. Valproic acid level today is 80. The patient has been argumentative regarding taking her medications. She poured out the liquid Depakene over her breakfast tray. Nursing staff tried to syringe it later but she spit most of it out. I met with her in her room. Review of Systems: Ambulation impaired with walker. Hard of hearing. No CV, , pulmonary, eye system symptoms on review. Mental Status Exam: The patient is oriented to herself and situation. Speech rapid, coherent. Abstraction fair. Computation impaired. Language function intact. Attention span short. No suicidal or homicidal ideation. She remains paranoid. Laboratory Data: Reviewed. Impression: Schizoaffective disorder bipolar type with psychotic features. Anxiety disorder unspecified. Impulse control disorder unspecified. Plan: Given her ongoing paranoia, increase Risperdal from 0.75 mg h.s. to 1 mg h.s. She slept just 3 hours previous night and we will increase Remeron from 7.5 mg h.s. to 15 mg h.s. Continue rest of the psychotropics unchanged including Depakene 500 mg b.i.d. since valproic acid level is therapeutic at 80. Make further adjustments as clinically indicated. Assessment: Vital Signs/I&O: Vital Signs Date Time Temp Pulse Resp B/P (MAP) Pulse Ox O2 Delivery O2 Flow Rate FiO2 08/15/21 06:19 97.3 82 18 101/62 (75) 95 08/13/21 15:20 Room Air I & O 0 08/14/21 08/14/21 08/15/21 15:00 23:00 07:00 Intake Total 420 ml 720 ml Balance 420 ml 720 ml Current Medications: Meds: Current Medications Medications (Trade) Dose Ordered Sig/Ervin Route PRN Reason Start Time Stop Time Status Last Admin Dose Admin Ibuprofen (Motrin) 600 mg PRN Q6HRS PRN PO PAIN 08/02/21 16:45 08/03/21 16:14 DC 08/02/21 23:17 Levothyroxine Sodium (Synthroid) 75 mcg DAILY06 PO 10/30/21 06:00 08/14/21 06:07 Olanzapine (ZyPREXA) 5 mg PRN Q4HRS PRN PO AGITATION 08/02/21 16:45 08/02/21 22:47 DC Lactobacillus Rhamnosus (Culturelle) 1 cap DAILY PO 08/03/21 09:00 08/13/21 09:00 Multi-Ingred Cream/Lotion/Oil/ Oint (Hydrocerin) 1 rachel BID TP 08/02/21 21:00 08/03/21 19:28 DC Mupirocin (Bactroban) 1 rachel DAILY TP 08/03/21 09:00 08/03/21 16:16 DC Acetaminophen (Tylenol) 650 mg PRN Q6HRS PRN PO MILD PAIN / TEMP > 100.3'F 08/02/21 16:45 08/04/21 23:56 Multi-Ingredient Ointment (Analgesic [place]) 1 rachel PRN QID PRN TP MUSCLE PAIN 08/02/21 16:45 Al Hydroxide/Mg Hydroxide (Mylanta Plus Xs) 15 ml PRN AFTMEALHC PRN PO DYSPEPSIA 08/02/21 16:45 Magnesium Hydroxide (Milk Of Magnesia) 2,400 mg PRN QHS PRN PO CONSTIPATION 08/02/21 16:45 Influenza Virus Vaccine Quadrival (Flulaval Quad [id number] Syringe) 0.5 ml ONCE ONCE VAX IM 08/02/21 19:00 08/02/21 19:01 DC 08/03/21 12:43 Olanzapine (ZyPREXA) 2.5 mg PRN Q2HRS PRN PO AGITATION 08/02/21 23:00 08/02/21 23:24 DC Olanzapine (ZyPREXA ZYDIS) 2.5 mg PRN Q2HR PRN PO PSYCHOSIS 08/02/21 23:30 08/06/21 07:39 Lactic Acid (Lac-Hydrin) 1 rachel BID TP 08/03/21 21:00 08/14/21 20:24 Multi-Ingred Cream/Lotion/Oil/ Oint (Hydrocerin) 1 rachel PRN BID PRN TP DRY SKIN 08/03/21 19:30 Mirtazapine (Remeron) 7.5 mg QHS PO 08/03/21 21:00 08/14/21 18:13 DC 08/13/21 20:04 Divalproex Sodium (Depakote Sprinkles) 500 mg QHS PO 08/03/21 21:00 08/10/21 17:54 DC 08/09/21 20:34 Trazodone HCl (Desyrel) 50 mg PRN QHS PRN PO INSOMNIA, MAY REPEAT X1 08/03/21 20:45 08/05/21 20:57 Risperidone (RisperDAL M) 0.5 mg DAILY PO 08/04/21 09:00 08/08/21 11:09 DC 08/07/21 09:52 Levofloxacin (Levaquin) 250 mg DAILY06 PO 08/07/21 06:00 08/16/21 22:00 08/14/21 06:07 Risperidone (RisperDAL M) 0.75 mg QHS PO 08/06/21 21:00 08/14/21 18:13 DC 08/13/21 20:04 Divalproex Sodium (Depakote Sprinkles) 500 mg BID PO 08/10/21 21:00 08/12/21 08:29 DC 08/12/21 08:17 Valproic Acid (Depakene) 500 mg BID PO 08/12/21 21:00 08/14/21 20:23 Mirtazapine (Remeron) 15 mg QHS PO 08/14/21 21:00 08/14/21 20:22 Risperidone (RisperDAL M) 1 mg QHS PO 08/14/21 21:00 08/14/21 20:24 Current Medications Medications (Trade) Dose Ordered Sig/Ervin Route PRN Reason Start Time Stop Time Status Last Admin Dose Admin Mirtazapine (Remeron) 15 mg QHS PO 08/14/21 21:00 08/14/21 20:22 Risperidone (RisperDAL M) 1 mg QHS PO 08/14/21 21:00 08/14/21 20:24 I have reviewed the current psychotropics carefully including drug interactions. Risk benefit ratio favors no change other than as noted in my dictated progress note. Diagnosis: Problems: (1) Schizoaffective disorder, bipolar type (2) Impulse control disorder, unspecified (3) Anxiety disorder, unspecified (4) Bipolar disorder, curr episode mixed, severe, with psychotic features ENOCH YBARRA MD Aug 15, 2021 07:19
[2021-08-15] MEDS: VALPROATE ACID 250 MG/5 ML ORAL SOLUTION PO SCH ×2 (08:22→20:05)
[2021-08-15] MEDS: LACTOBACILLUS RHAMNOSUS GG 1 CAPSULE. PO SCH (08:31)
[2021-08-15] MEDS: AMMONIUM LACTATE 12% TOPICAL LOTION 226GM BOTTLE. TP SCH ×2 (09:00→20:09)
--- NOTE | 2021-08-15 09:24 | NUR ---
Patient disorganised and resistive to medications. Attempted to provide medications per eMAR, patient spat out a good bit, unable to calculate how much she received. Will continue to monitor and report to MD during rounds.
[2021-08-15 16:13] VITALS: BP 99/59
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
[2021-08-15] MEDS: MIRTAZAPINE 15 MG TABLET PO SCH (20:04)
--- NOTE | 2021-08-15 21:05 | PDOC ---
Exam Note: Prasanna Note: Please also refer to the separate dictated note~for this date of service dictated separately.~Patient seen individually. Discussed the patient with Nursing staff reviewed the chart.~Reviewed interim history and current functioning. Reviewed vital signs,~Labs/ Radiology~and current medications noted below. Continue current treatment with the changes noted in the dictated addendum note Assessment: Vital Signs/I&O: Vital Signs Date Time Temp Pulse Resp B/P (MAP) Pulse Ox O2 Delivery O2 Flow Rate FiO2 08/15/21 16:13 98.5 86 20 99/59 (72) 94 Room Air I & O 08/14/21 08/14/21 08/15/21 15:00 23:00 07:00 Intake Total 420 ml 720 ml Balance 420 ml 720 ml Current Medications: Meds: Current Medications Medications (Trade) Dose Ordered Sig/Ervin Route PRN Reason Start Time Stop Time Status Last Admin Dose Admin Ibuprofen (Motrin) 600 mg PRN Q6HRS PRN PO PAIN 08/02/21 16:45 08/03/21 16:14 DC 08/02/21 23:17 Levothyroxine Sodium (Synthroid) 75 mcg DAILY06 PO 08/03/21 06:00 08/14/21 06:07 Olanzapine (ZyPREXA) 5 mg PRN Q4HRS PRN PO AGITATION 08/02/21 16:45 08/02/21 22:47 DC Lactobacillus Rhamnosus (Culturelle) 1 cap DAILY PO 08/03/21 09:00 08/15/21 08:31 Multi-Ingred Cream/Lotion/Oil/ Oint (Hydrocerin) 1 rachel BID TP 08/02/21 21:00 08/03/21 19:28 DC Mupirocin (Bactroban) 1 rachel DAILY TP 08/03/21 09:00 08/03/21 16:16 DC Acetaminophen (Tylenol) 650 mg PRN Q6HRS PRN PO MILD PAIN / TEMP > 100.3'F 08/02/21 16:45 08/04/21 23:56 Multi-Ingredient Ointment (Analgesic [place]) 1 rachel PRN QID PRN TP MUSCLE PAIN 08/02/21 16:45 Al Hydroxide/Mg Hydroxide (Mylanta Plus Xs) 15 ml PRN AFTMEALHC PRN PO DYSPEPSIA 08/02/21 16:45 Magnesium Hydroxide (Milk Of Magnesia) 2,400 mg PRN QHS PRN PO CONSTIPATION 08/02/21 16:45 Influenza Virus Vaccine Quadrival (Flulaval Quad Syringe) 0.5 ml ONCE ONCE VAX IM 08/02/21 19:00 08/02/21 19:01 DC 08/03/21 12:43 Olanzapine (ZyPREXA) 2.5 mg PRN Q2HRS PRN PO AGITATION 08/02/21 23:00 08/02/21 23:24 DC Olanzapine (ZyPREXA ZYDIS) 2.5 mg PRN Q2HR PRN PO PSYCHOSIS 08/02/21 23:30 08/06/21 07:39 Lactic Acid (Lac-Hydrin) 1 rachel BID TP 08/03/21 21:00 08/15/21 20:09 Multi-Ingred Cream/Lotion/Oil/ Oint (Hydrocerin) 1 rachel PRN BID PRN TP DRY SKIN 08/03/21 19:30 Mirtazapine (Remeron) 7.5 mg QHS PO 08/03/21 21:00 08/14/21 18:13 DC 08/13/21 20:04 Divalproex Sodium (Depakote Sprinkles) 500 mg QHS PO 08/03/21 21:00 08/10/21 17:54 DC 08/09/21 20:34 Trazodone HCl (Desyrel) 50 mg PRN QHS PRN PO INSOMNIA, MAY REPEAT X1 08/03/21 20:45 08/05/21 20:57 Risperidone (RisperDAL M) 0.5 mg DAILY PO 08/04/21 09:00 08/08/21 11:09 DC 08/07/21 09:52 Levofloxacin (Levaquin) 250 mg DAILY06 PO 08/07/21 06:00 08/16/21 22:00 08/15/21 08:22 Risperidone (RisperDAL M) 0.75 mg QHS PO 08/06/21 21:00 08/14/21 18:13 DC 08/13/21 20:04 Divalproex Sodium (Depakote Sprinkles) 500 mg BID PO 08/10/21 21:00 08/12/21 08:29 DC 11/8/21 08:17 Valproic Acid (Depakene) 500 mg BID PO 08/12/21 21:00 08/15/21 20:05 Mirtazapine (Remeron) 15 mg QHS PO 08/14/21 21:00 08/15/21 20:04 Risperidone (RisperDAL M) 1 mg QHS PO 08/14/21 21:00 08/14/21 20:24 I have reviewed the current psychotropics carefully including drug interactions. Risk benefit ratio favors no change other than as noted in my dictated progress note. Diagnosis: Problems: (1) Schizoaffective disorder, bipolar type (2) Impulse control disorder, unspecified (3) Anxiety disorder, unspecified (4) Bipolar disorder, curr episode mixed, severe, with psychotic features ENOCH YBARRA MD Aug 15, 2021 21:05
[2021-08-15] MEDS: risperiDONE ODT 1 MG TAB.RAPDIS. PO SCH (21:09)
[2021-08-16] MEDS: ACETAMINOPHEN 325 MG TABLET PO PRN (03:45)
--- NOTE | 2021-08-16 04:23 | NUR ---
Nursing Note The patient was located in her room for her assessment and medication pass. The patient was resistive with all cares and interactions. The patient yelled at staff while in the shower. The patient refused for some time to wear clothing after her shower. The patient refused to take her HS medication until she had clothing she liked. After providing the patient with clothing the patient took her medication whole. THe patient was awake for most of the night yelling intermittently. Patient requested PRN Tylenol this AM. Currently awake sitting in her room.
[2021-08-16] MEDS: LEVOTHYROXINE 75 MCG TABLET PO SCH ×2 (05:44→06:00)
[2021-08-16] MEDS: levoFLOXacin 250 MG TABLET PO SCH ×3 (05:44→07:48)
[2021-08-16 06:01] VITALS: BP 129/67
--- NOTE | 2021-08-16 07:24 | PDOC ---
Exam Note: Prasanna Note: This note is a late entry for 08/15/2021 covers elements not covered in my initial note. Subjective: The patient was seen individually in the evening of 08/15/2021 with Miki SWIFT, discussed and reviewed the chart. The patient slept 6-1/4 hours previous night. She is often resistive to medications. Valproic acid level is therapeutic at 80. I met with her in her room. Review of Systems: Positive for pedal edema. Ambulation impaired with walker. She states she is hard of hearing but seems to have selective hearing. No CV, , pulmonary, eye system symptoms on review. Mental Status Exam: The patient is oriented to herself and situation. Speech coherent. Abstraction fair. Computation impaired. Language function intact. Mood and affect somewhat anxious, labile, somewhat distractible. No suicidal or homicidal ideation. Laboratory Data: Reviewed. Impression: Schizoaffective disorder bipolar type with psychotic features. Anxiety disorder unspecified. Impulse control disorder unspecified. Plan: Continue rest unchanged for now. Assessment: Vital Signs/I&O: Vital Signs Date Time Temp Pulse Resp B/P (MAP) Pulse Ox O2 Delivery O2 Flow Rate FiO2 08/16/21 06:01 98.6 85 18 129/67 (87) 94 Room Air I & O 08/15/21 08/15/21 08/16/21 15:00 23:00 07:00 Intake Total 600 ml 480 ml Balance 600 ml 480 ml Current Medications: Meds: Current Medications Medications (Trade) Dose Ordered Sig/Ervin Route PRN Reason Start Time Stop Time Status Last Admin Dose Admin Ibuprofen (Motrin) 600 mg PRN Q6HRS PRN PO PAIN 08/02/21 16:45 08/03/21 16:14 DC 08/02/21 23:17 Levothyroxine Sodium (Synthroid) 75 mcg DAILY06 PO 08/03/21 06:00 08/14/21 06:07 Olanzapine (ZyPREXA) 5 mg PRN Q4HRS PRN PO AGITATION 08/02/21 16:45 08/02/21 22:47 DC Lactobacillus Rhamnosus (Culturelle) 1 cap DAILY PO 08/03/21 09:00 08/15/21 08:31 Multi-Ingred Cream/Lotion/Oil/ Oint (Hydrocerin) 1 rachel BID TP 08/02/21 21:00 08/03/21 19:28 DC Mupirocin (Bactroban) 1 rachel DAILY TP 08/03/21 09:00 08/03/21 16:16 DC Acetaminophen (Tylenol) 650 mg PRN Q6HRS PRN PO MILD PAIN / TEMP > 100.3'F 08/02/21 16:45 08/16/21 03:45 Multi-Ingredient Ointment (Analgesic [place]) 1 rachel PRN QID PRN TP MUSCLE PAIN 08/02/21 16:45 Al Hydroxide/Mg Hydroxide (Mylanta Plus Xs) 15 ml PRN AFTMEALHC PRN PO DYSPEPSIA 08/02/21 16:45 Magnesium Hydroxide (Milk Of Magnesia) 2,400 mg PRN QHS PRN PO CONSTIPATION 08/02/21 16:45 Influenza Virus Vaccine Quadrival (Flulaval Quad [id number] Syringe) 0.5 ml ONCE ONCE VAX IM 08/02/21 19:00 08/02/21 19:01 DC 08/03/21 12:43 Olanzapine (ZyPREXA) 2.5 mg PRN Q2HRS PRN PO AGITATION 08/02/21 23:00 08/02/21 23:24 DC Olanzapine (ZyPREXA ZYDIS) 2.5 mg PRN Q2HR PRN PO PSYCHOSIS 08/02/21 23:30 08/06/21 07:39 Lactic Acid (Lac-Hydrin) 1 rachel BID TP 08/03/21 21:00 08/15/21 20:09 Multi-Ingred Cream/Lotion/Oil/ Oint (Hydrocerin) 1 rachel PRN BID PRN TP DRY SKIN 08/03/21 19:30 Mirtazapine (Remeron) 7.5 mg QHS PO 08/03/21 21:00 08/14/21 18:13 DC 08/13/21 20:04 Divalproex Sodium (Depakote Sprinkles) 500 mg QHS PO 08/03/21 21:00 08/10/21 17:54 DC 08/09/21 20:34 Trazodone HCl (Desyrel) 50 mg PRN QHS PRN PO INSOMNIA, MAY REPEAT X1 08/03/21 20:45 08/05/21 20:57 Risperidone (RisperDAL M) 0.5 mg DAILY PO 08/04/21 09:00 08/08/21 11:09 DC 08/07/21 09:52 Levofloxacin (Levaquin) 250 mg DAILY06 PO 08/07/21 06:00 08/16/21 22:00 08/15/21 08:22 Risperidone (RisperDAL M) 0.75 mg QHS PO 08/06/21 21:00 08/14/21 18:13 DC 08/13/21 20:04 Divalproex Sodium (Depakote Sprinkles) 500 mg BID PO 08/10/21 21:00 08/12/21 08:29 DC 08/12/21 08:17 Valproic Acid (Depakene) 500 mg BID PO 08/12/21 21:00 08/15/21 20:05 Mirtazapine (Remeron) 15 mg QHS PO 08/14/21 21:00 08/15/21 20:04 Risperidone (RisperDAL M) 1 mg QHS PO 08/14/21 21:00 08/15/21 21:09 I have reviewed the current psychotropics carefully including drug interactions. Risk benefit ratio favors no change other than as noted in my dictated progress note. Diagnosis: Problems: (1) Schizoaffective disorder, bipolar type (2) Impulse control disorder, unspecified (3) Anxiety disorder, unspecified (4) Bipolar disorder, curr episode mixed, severe, with psychotic features ENOCH YBARRA MD Aug 16, 2021 07:24
[2021-08-16] MEDS: VALPROATE ACID 250 MG/5 ML ORAL SOLUTION PO SCH ×4 (07:48→21:00)
[2021-08-16] MEDS: AMMONIUM LACTATE 12% TOPICAL LOTION 226GM BOTTLE. TP SCH ×2 (09:00→21:00)
[2021-08-16] MEDS: LACTOBACILLUS RHAMNOSUS GG 1 CAPSULE. PO SCH (09:00)
--- NOTE | 2021-08-16 09:00 | NUR ---
Attempted to provide patient with morning medications, she refused. Then attempted to hide medication in her coffee, she again refused. When confronted by staff, patient became agitated as described in separate note. PRN provided per eMAR, will continue to monitor and report to MD during rounds.
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
[2021-08-16 16:09] VITALS: BP 102/50
[2021-08-16] MEDS: risperiDONE ODT 1 MG TAB.RAPDIS. PO SCH (21:00)
[2021-08-16] MEDS: MIRTAZAPINE 15 MG TABLET PO SCH (21:00)
--- NOTE | 2021-08-16 21:08 | PDOC ---
Exam Note: Prasanna Note: Please also refer to the separate dictated note~for this date of service dictated separately.~Patient seen individually. Discussed the patient with Nursing staff reviewed the chart.~Reviewed interim history and current functioning. Reviewed vital signs,~Labs/ Radiology~and current medications noted below. Continue current treatment with the changes noted in the dictated addendum note Assessment: Vital Signs/I&O: Vital Signs Date Time Temp Pulse Resp B/P (MAP) Pulse Ox O2 Delivery O2 Flow Rate FiO2 08/16/21 16:09 97.8 81 20 102/50 (67) 97 08/16/21 06:01 Room Air I & O 08/15/21 08/15/21 08/16/21 15:00 23:00 07:00 Intake Total 600 ml 480 ml Balance 600 ml 480 ml Current Medications: Meds: Current Medications Medications (Trade) Dose Ordered Sig/Ervin Route PRN Reason Start Time Stop Time Status Last Admin Dose Admin Ibuprofen (Motrin) 600 mg PRN Q6HRS PRN PO PAIN 08/02/21 16:45 08/03/21 16:14 DC 08/02/21 23:17 Levothyroxine Sodium (Synthroid) 75 mcg DAILY06 PO 08/03/21 06:00 08/14/21 06:07 Olanzapine (ZyPREXA) 5 mg PRN Q4HRS PRN PO AGITATION 08/02/21 16:45 08/02/21 22:47 DC Lactobacillus Rhamnosus (Culturelle) 1 cap DAILY PO 08/03/21 09:00 08/15/21 08:31 Multi-Ingred Cream/Lotion/Oil/ Oint (Hydrocerin) 1 rachel BID TP 08/02/21 21:00 08/03/21 19:28 DC Mupirocin (Bactroban) 1 rachel DAILY TP 08/03/21 09:00 08/03/21 16:16 DC Acetaminophen (Tylenol) 650 mg PRN Q6HRS PRN PO MILD PAIN / TEMP > 100.3'F 08/02/21 16:45 08/16/21 03:45 Multi-Ingredient Ointment (Analgesic [place]) 1 rachel PRN QID PRN TP MUSCLE PAIN 08/02/21 16:45 Al Hydroxide/Mg Hydroxide (Mylanta Plus Xs) 15 ml PRN AFTMEALHC PRN PO DYSPEPSIA 08/02/21 16:45 Magnesium Hydroxide (Milk Of Magnesia) 2,400 mg PRN QHS PRN PO CONSTIPATION 08/02/21 16:45 Influenza Virus Vaccine Quadrival (Flulaval Quad Syringe) 0.5 ml ONCE ONCE VAX IM 08/02/21 19:00 08/02/21 19:01 DC 08/03/21 12:43 Olanzapine (ZyPREXA) 2.5 mg PRN Q2HRS PRN PO AGITATION 08/02/21 23:00 08/02/21 23:24 DC Olanzapine (ZyPREXA ZYDIS) 2.5 mg PRN Q2HR PRN PO PSYCHOSIS 08/02/21 23:30 08/16/21 09:18 Lactic Acid (Lac-Hydrin) 1 rachel BID TP 08/03/21 21:00 08/15/21 20:09 Multi-Ingred Cream/Lotion/Oil/ Oint (Hydrocerin) 1 rachel PRN BID PRN TP DRY SKIN 08/03/21 19:30 Mirtazapine (Remeron) 7.5 mg QHS PO 08/03/21 21:00 08/14/21 18:13 DC 08/13/21 20:04 Divalproex Sodium (Depakote Sprinkles) 500 mg QHS PO 08/03/21 21:00 08/10/21 17:54 DC 08/09/21 20:34 Trazodone HCl (Desyrel) 50 mg PRN QHS PRN PO INSOMNIA, MAY REPEAT X1 08/03/21 20:45 08/05/21 20:57 Risperidone (RisperDAL M) 0.5 mg DAILY PO 08/04/21 09:00 08/08/21 11:09 DC 08/07/21 09:52 Levofloxacin (Levaquin) 250 mg DAILY06 PO 08/07/21 06:00 08/16/21 22:00 08/15/21 08:22 Risperidone (RisperDAL M) 0.75 mg QHS PO 08/06/21 21:00 08/14/21 18:13 DC 08/13/21 20:04 Divalproex Sodium (Depakote Sprinkles) 500 mg BID PO 08/10/21 21:00 08/12/21 08:29 DC 08/12/21 08:17 Valproic Acid (Depakene) 500 mg BID PO 08/12/21 21:00 08/16/21 20:59 Mirtazapine (Remeron) 15 mg QHS PO 08/14/21 21:00 08/16/21 21:00 Risperidone (RisperDAL M) 1 mg QHS PO 08/14/21 21:00 08/16/21 18:00 DC 08/15/21 21:09 Risperidone (RisperDAL M) 1.25 mg QHS PO 08/16/21 21:00 08/16/21 21:00 Current Medications Medications (Trade) Dose Ordered Sig/Ervin Route PRN Reason Start Time Stop Time Status Last Admin Dose Admin Risperidone (RisperDAL M) 1.25 mg QHS PO 08/16/21 21:00 08/16/21 21:00 I have reviewed the current psychotropics carefully including drug interactions. Risk benefit ratio favors no change other than as noted in my dictated progress note. Diagnosis: Problems: (1) Schizoaffective disorder, bipolar type (2) Impulse control disorder, unspecified (3) Anxiety disorder, unspecified (4) Bipolar disorder, curr episode mixed, severe, with psychotic features ENOCH YBARRA MD Aug 16, 2021 21:08
--- NOTE | 2021-08-16 23:40 | NUR ---
Patient is located in her room on assumption of care, napping intermittently in a chair. She is irritable and sarcastic in interactions with staff. This nurse melted HS pills and mixed them with the Depakene liquid. When offered to patient, she refused, stating "Why don't you drink it?" This nurse attempted several more times to medicate patient, she continues to refuse. She remains sitting in her chair, but is asleep at this time. Will continue to monitor.
[2021-08-17] MEDS: LEVOTHYROXINE 75 MCG TABLET PO SCH (05:13)
[2021-08-17] MEDS: VALPROATE ACID 250 MG/5 ML ORAL SOLUTION PO SCH ×2 (05:15→21:26)
[2021-08-17] MEDS: ACETAMINOPHEN 325 MG TABLET PO PRN ×2 (05:15→05:38)
[2021-08-17 05:58] VITALS: BP 115/70
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
[2021-08-17] MEDS: AMMONIUM LACTATE 12% TOPICAL LOTION 226GM BOTTLE. TP SCH ×2 (09:00→21:00)
[2021-08-17] MEDS: LACTOBACILLUS RHAMNOSUS GG 1 CAPSULE. PO SCH (09:00)
[2021-08-17 15:21] VITALS: BP 127/87
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
--- NOTE | 2021-08-17 21:08 | PDOC ---
Exam Note: Prasanna Note: Please also refer to the separate dictated note~for this date of service dictated separately.~Patient seen individually. Discussed the patient with Nursing staff reviewed the chart.~Reviewed interim history and current functioning. Reviewed vital signs,~Labs/ Radiology~and current medications noted below. Continue current treatment with the changes noted in the dictated addendum note Assessment: Vital Signs/I&O: Vital Signs Date Time Temp Pulse Resp B/P (MAP) Pulse Ox O2 Delivery O2 Flow Rate FiO2 08/17/21 15:21 98.0 80 18 127/87 (100) 98 Room Air I & O 08/16/21 08/16/21 08/17/21 15:00 23:00 07:00 Intake Total 480 ml 360 ml Balance 480 ml 360 ml Current Medications: Meds: Current Medications Medications (Trade) Dose Ordered Sig/Ervin Route PRN Reason Start Time Stop Time Status Last Admin Dose Admin Ibuprofen (Motrin) 600 mg PRN Q6HRS PRN PO PAIN 08/02/21 16:45 08/03/21 16:14 DC 08/02/21 23:17 Levothyroxine Sodium (Synthroid) 75 mcg DAILY06 PO 08/03/21 06:00 08/17/21 05:13 Olanzapine (ZyPREXA) 5 mg PRN Q4HRS PRN PO AGITATION 08/02/21 16:45 08/02/21 22:47 DC Lactobacillus Rhamnosus (Culturelle) 1 cap DAILY PO 08/03/21 09:00 08/17/21 19:15 DC 08/15/21 08:31 Multi-Ingred Cream/Lotion/Oil/ Oint (Hydrocerin) 1 rachel BID TP 08/02/21 21:00 08/03/21 19:28 DC Mupirocin (Bactroban) 1 rachel DAILY TP 08/03/21 09:00 08/03/21 16:16 DC Acetaminophen (Tylenol) 650 mg PRN Q6HRS PRN PO MILD PAIN / TEMP > 100.3'F 08/02/21 16:45 08/17/21 05:38 Multi-Ingredient Ointment (Analgesic [place]) 1 rachel PRN QID PRN TP MUSCLE PAIN 08/02/21 16:45 Al Hydroxide/Mg Hydroxide (Mylanta Plus Xs) 15 ml PRN AFTMEALHC PRN PO DYSPEPSIA 08/02/21 16:45 Magnesium Hydroxide (Milk Of Magnesia) 2,400 mg PRN QHS PRN PO CONSTIPATION 08/02/21 16:45 Influenza Virus Vaccine Quadrival (Flulaval Quad Syringe) 0.5 ml ONCE ONCE VAX IM 08/02/21 19:00 08/02/21 19:01 DC 08/03/21 12:43 Olanzapine (ZyPREXA) 2.5 mg PRN Q2HRS PRN PO AGITATION 08/02/21 23:00 08/02/21 23:24 DC Olanzapine (ZyPREXA ZYDIS) 2.5 mg PRN Q2HR PRN PO PSYCHOSIS 08/02/21 23:30 08/16/21 09:18 Lactic Acid (Lac-Hydrin) 1 rachel BID TP 08/03/21 21:00 08/15/21 20:09 Multi-Ingred Cream/Lotion/Oil/ Oint (Hydrocerin) 1 rachel PRN BID PRN TP DRY SKIN 08/03/21 19:30 Mirtazapine (Remeron) 7.5 mg QHS PO 08/03/21 21:00 08/14/21 18:13 DC 08/13/21 20:04 Divalproex Sodium (Depakote Sprinkles) 500 mg QHS PO 08/03/21 21:00 08/10/21 17:54 DC 08/09/21 20:34 Trazodone HCl (Desyrel) 50 mg PRN QHS PRN PO INSOMNIA, MAY REPEAT X1 08/03/21 20:45 08/05/21 20:57 Risperidone (RisperDAL M) 0.5 mg DAILY PO 08/04/21 09:00 08/08/21 11:09 DC 08/07/21 09:52 Levofloxacin (Levaquin) 250 mg DAILY06 PO 08/07/21 06:00 08/16/21 22:00 DC 08/15/21 08:22 Risperidone (RisperDAL M) 0.75 mg QHS PO 08/06/21 21:00 08/14/21 18:13 DC 08/13/21 20:04 Divalproex Sodium (Depakote Sprinkles) 500 mg BID PO 08/10/21 21:00 08/12/21 08:29 DC 08/12/21 08:17 Valproic Acid (Depakene) 500 mg BID PO 08/12/21 21:00 08/17/21 05:15 Mirtazapine (Remeron) 15 mg QHS PO 08/14/21 21:00 08/15/21 20:04 Risperidone (RisperDAL M) 1 mg QHS PO 08/14/21 21:00 08/16/21 18:00 DC 08/15/21 21:09 Risperidone (RisperDAL M) 1.25 mg QHS PO 08/16/21 21:00 I have reviewed the current psychotropics carefully including drug interactions. Risk benefit ratio favors no change other than as noted in my dictated progress note. Diagnosis: Problems: (1) Schizoaffective disorder, bipolar type (2) Impulse control disorder, unspecified (3) Anxiety disorder, unspecified (4) Bipolar disorder, curr episode mixed, severe, with psychotic features ENOCH YBARRA MD Aug 17, 2021 21:08
[2021-08-17] MEDS: risperiDONE ODT 1 MG TAB.RAPDIS. PO SCH (21:25)
[2021-08-17] MEDS: MIRTAZAPINE 15 MG TABLET PO SCH (21:25)
--- NOTE | 2021-08-17 23:11 | NUR ---
Patient is located in her room on assumption of care, napping intermittently in a chair. She continues to be irritable and sarcastic in interactions with staff. Patient scheduled to be showered tonight, and attempted to refuse. She eventually complied but was rude and dramatic throughout the whole thing. After the shower, patient began demanding to have a long sleeve shirt. This nurse approached her with her HS medications and told her she could have the shirt as soon as she took her medicine. She replied "That's fine, it's just the Depakote, right? I have an agreement with my daughter and the doctor. I'll take it." Patient remains awake at present time, going between a chair in the hallway and a chair in her room. Will continue to monitor.
[2021-08-18] MEDS: LEVOTHYROXINE 75 MCG TABLET PO SCH (04:50)
[2021-08-18 05:59] VITALS: BP 129/86
--- NOTE | 2021-08-18 07:19 | PDOC ---
Exam Note: Prasanna Note: This note is a late entry for 08/16/2021 covers elements not covered in my initial note. Subjective: The patient was seen individually in the evening of 08/16/2021 with Dar SWIFT, discussed and reviewed the chart. The patient slept 5 hours previous night. I met with the patient in her room. Per Miki RN in the night the patient was screaming in the shower, refusing to comply with nursing staff who was trying to dress her after the shower. She refused her meds during the day on 08/16, spit them out, refused the Depakene and threw the cup of Depakene on Litzy RN. She received Zyprexa at 8.30 p.m. and seemed a little calmer after this, sat in the dayroom. Review of Systems: Ambulation impaired with walker. She is hard of hearing. No CV, , pulmonary, eye system symptoms on review. Mental Status Exam: The patient is reasonably oriented. Her hearing is selective. Speech has some latency, slightly high pitched, typical for her. A bstraction fair. Computation impaired. Language function intact. Mood and affect somewhat anxious, labile. Laboratory Data: Reviewed. Impression: Schizoaffective disorder bipolar type with psychotic features. Anxiety disorder unspecified. Impulse control disorder unspecified. Plan: Increase Risperdal from 1 mg h.s. to 1.25 mg h.s. Encourage compliance with psychotropics. Adjust further as clinically indicated. Assessment: Vital Signs/I&O: Vital Signs Date Time Temp Pulse Resp B/P (MAP) Pulse Ox O2 Delivery O2 Flow Rate FiO2 08/18/21 05:59 98.6 86 20 129/86 (100) 94 Room Air I & O 08/17/21 08/17/21 08/18/21 15:00 23:00 07:00 Intake Total 720 ml 360 ml Balance 720 ml 360 ml Current Medications: Meds: Current Medications Medications (Trade) Dose Ordered Sig/Ervin Route PRN Reason Start Time Stop Time Status Last Admin Dose Admin Ibuprofen (Motrin) 600 mg PRN Q6HRS PRN PO PAIN 08/02/21 16:45 08/03/21 16:14 DC 08/02/21 23:17 Levothyroxine Sodium (Synthroid) 75 mcg DAILY06 PO 08/03/21 06:00 08/18/21 04:50 Olanzapine (ZyPREXA) 5 mg PRN Q4HRS PRN PO AGITATION 08/02/21 16:45 08/02/21 22:47 DC Lactobacillus Rhamnosus (Culturelle) 1 cap DAILY PO 08/03/21 09:00 08/17/21 19:15 DC 08/15/21 08:31 Multi-Ingred Cream/Lotion/Oil/ Oint (Hydrocerin) 1 rachel BID TP 08/02/21 21:00 08/03/21 19:28 DC Mupirocin (Bactroban) 1 rachel DAILY TP 08/03/21 09:00 08/03/21 16:16 DC Acetaminophen (Tylenol) 650 mg PRN Q6HRS PRN PO MILD PAIN / TEMP > 100.3'F 08/02/21 16:45 08/17/21 05:38 Multi-Ingredient Ointment (Analgesic [place]) 1 rachel PRN QID PRN TP MUSCLE PAIN 08/02/21 16:45 Al Hydroxide/Mg Hydroxide (Mylanta Plus Xs) 15 ml PRN AFTMEALHC PRN PO DYSPEPSIA 08/02/21 16:45 Magnesium Hydroxide (Milk Of Magnesia) 2,400 mg PRN QHS PRN PO CONSTIPATION 08/02/21 16:45 Influenza Virus Vaccine Quadrival (Flulaval Quad 1569-0911 Syringe) 0.5 ml ONCE ONCE VAX IM 08/02/21 19:00 08/02/21 19:01 DC 08/03/21 12:43 Olanzapine (ZyPREXA) 2.5 mg PRN Q2HRS PRN PO AGITATION 08/02/21 23:00 08/02/21 23:24 DC Olanzapine (ZyPREXA ZYDIS) 2.5 mg PRN Q2HR PRN PO PSYCHOSIS 08/02/21 23:30 08/18/21 04:53 Lactic Acid (Lac-Hydrin) 1 rachel BID TP 08/03/21 21:00 08/15/21 20:09 Multi-Ingred Cream/Lotion/Oil/ Oint (Hydrocerin) 1 rachel PRN BID PRN TP DRY SKIN 08/03/21 19:30 Mirtazapine (Remeron) 7.5 mg QHS PO 08/03/21 21:00 08/14/21 18:13 DC 08/13/21 20:04 Divalproex Sodium (Depakote Sprinkles) 500 mg QHS PO 08/03/21 21:00 08/10/21 17:54 DC 08/09/21 20:34 Trazodone HCl (Desyrel) 50 mg PRN QHS PRN PO INSOMNIA, MAY REPEAT X1 08/03/21 20:45 08/05/21 20:57 Risperidone (RisperDAL M) 0.5 mg DAILY PO 08/04/21 09:00 08/08/21 11:09 DC 08/07/21 09:52 Levofloxacin (Levaquin) 250 mg DAILY06 PO 08/07/21 06:00 08/16/21 22:00 DC 08/15/21 08:22 Risperidone (RisperDAL M) 0.75 mg QHS PO 08/06/21 21:00 08/14/21 18:13 DC 08/13/21 20:04 Divalproex Sodium (Depakote Sprinkles) 500 mg BID PO 08/10/21 21:00 08/12/21 08:29 DC 08/12/21 08:17 Valproic Acid (Depakene) 500 mg BID PO 08/12/21 21:00 08/17/21 21:26 Mirtazapine (Remeron) 15 mg QHS PO 08/14/21 21:00 08/17/21 21:25 Risperidone (RisperDAL M) 1 mg QHS PO 08/14/21 21:00 08/16/21 18:00 DC 08/15/21 21:09 Risperidone (RisperDAL M) 1.25 mg QHS PO 08/16/21 21:00 08/17/21 21:25 Risperidone (RisperDAL CONSTA) 25 mg Q2WKS IM 08/18/21 09:00 I have reviewed the current psychotropics carefully including drug interactions. Risk benefit ratio favors no change other than as noted in my dictated progress note. Diagnosis: Problems: (1) Schizoaffective disorder, bipolar type (2) Impulse control disorder, unspecified (3) Anxiety disorder, unspecified (4) Bipolar disorder, curr episode mixed, severe, with psychotic features ENOCH YBARRA MD Aug 18, 2021 07:19
[2021-08-18] MEDS: VALPROATE ACID 250 MG/5 ML ORAL SOLUTION PO SCH ×2 (08:24→19:50)
[2021-08-18] MEDS ORDERED: risperiDONE MICROSPHERES 25 MG/2 ML DISP.SYRIN. IM SCH (09:00)
[2021-08-18] MEDS: AMMONIUM LACTATE 12% TOPICAL LOTION 226GM BOTTLE. TP SCH ×2 (09:00→19:50)
--- NOTE | 2021-08-18 15:45 | NUR ---
Nursing notes: Patient in dinning room for morning medications & assessment. She was encouraged to take medications. She was acting as if she could not hear this nurse, refused assessment stating this nurse has diseases. She refused leg creams. Patient frequently irritable and demanding towards staff. She requested to call daughter. Patient was stating she wanted to call her insecticide supervisor because her daughter was not coming to pick her up. Daughter hung up on patient. Patient then followed this nurse to peers' room when I would not call her daughter back. She stated God is going to curse this nurse for not doing what she wanted this nurse to do. She does not interact with peers. She ambulates independently with walker. She is currently walking in [place]. Will continue to monitor.
[2021-08-18 16:08] VITALS: BP 106/72
[2021-08-18] MEDS: MIRTAZAPINE 15 MG TABLET PO SCH (19:50)
[2021-08-18] MEDS: risperiDONE ODT 1 MG TAB.RAPDIS. PO SCH (19:51)
--- NOTE | 2021-08-18 21:01 | PDOC ---
Exam Note: Prasanna Note: Please also refer to the separate dictated note~for this date of service dictated separately.~Patient seen individually. Discussed the patient with Nursing staff reviewed the chart.~Reviewed interim history and current functioning. Reviewed vital signs,~Labs/ Radiology~and current medications noted below. Continue current treatment with the changes noted in the dictated addendum note Assessment: Vital Signs/I&O: Vital Signs Date Time Temp Pulse Resp B/P (MAP) Pulse Ox O2 Delivery O2 Flow Rate FiO2 08/18/21 16:08 97.3 82 20 106/72 (83) 93 Room Air I & O 08/17/21 08/17/21 08/18/21 15:00 23:00 07:00 Intake Total 720 ml 360 ml Balance 720 ml 360 ml Current Medications: Meds: Current Medications Medications (Trade) Dose Ordered Sig/Ervin Route PRN Reason Start Time Stop Time Status Last Admin Dose Admin Ibuprofen (Motrin) 600 mg PRN Q6HRS PRN PO PAIN 08/02/21 16:45 08/03/21 16:14 DC 08/02/21 23:17 Levothyroxine Sodium (Synthroid) 75 mcg DAILY06 PO 08/03/21 06:00 08/18/21 04:50 Olanzapine (ZyPREXA) 5 mg PRN Q4HRS PRN PO AGITATION 08/02/21 16:45 08/02/21 22:47 DC Lactobacillus Rhamnosus (Culturelle) 1 cap DAILY PO 08/03/21 09:00 08/17/21 19:15 DC 08/15/21 08:31 Multi-Ingred Cream/Lotion/Oil/ Oint (Hydrocerin) 1 rachel BID TP 08/02/21 21:00 08/03/21 19:28 DC Mupirocin (Bactroban) 1 rachel DAILY TP 08/03/21 09:00 08/03/21 16:16 DC Acetaminophen (Tylenol) 650 mg PRN Q6HRS PRN PO MILD PAIN / TEMP > 100.3'F 08/02/21 16:45 08/17/21 05:38 Multi-Ingredient Ointment (Analgesic [place]) 1 rachel PRN QID PRN TP MUSCLE PAIN 08/02/21 16:45 Al Hydroxide/Mg Hydroxide (Mylanta Plus Xs) 15 ml PRN AFTMEALHC PRN PO DYSPEPSIA 08/02/21 16:45 Magnesium Hydroxide (Milk Of Magnesia) 2,400 mg PRN QHS PRN PO CONSTIPATION 08/02/21 16:45 Influenza Virus Vaccine Quadrival (Flulaval Quad Syringe) 0.5 ml ONCE ONCE VAX IM 08/02/21 19:00 08/02/21 19:01 DC 08/03/21 12:43 Olanzapine (ZyPREXA) 2.5 mg PRN Q2HRS PRN PO AGITATION 08/02/21 23:00 08/02/21 23:24 DC Olanzapine (ZyPREXA ZYDIS) 2.5 mg PRN Q2HR PRN PO PSYCHOSIS 08/02/21 23:30 08/18/21 04:53 Lactic Acid (Lac-Hydrin) 1 rachel BID TP 08/03/21 21:00 08/15/21 20:09 Multi-Ingred Cream/Lotion/Oil/ Oint (Hydrocerin) 1 rachel PRN BID PRN TP DRY SKIN 08/03/21 19:30 Mirtazapine (Remeron) 7.5 mg QHS PO 08/03/21 21:00 08/14/21 18:13 DC 08/13/21 20:04 Divalproex Sodium (Depakote Sprinkles) 500 mg QHS PO 08/03/21 21:00 08/10/21 17:54 DC 08/09/21 20:34 Trazodone HCl (Desyrel) 50 mg PRN QHS PRN PO INSOMNIA, MAY REPEAT X1 08/03/21 20:45 08/05/21 20:57 Risperidone (RisperDAL M) 0.5 mg DAILY PO 08/04/21 09:00 08/08/21 11:09 DC 08/07/21 09:52 Levofloxacin (Levaquin) 250 mg DAILY06 PO 08/07/21 06:00 08/16/21 22:00 DC 08/15/21 08:22 Risperidone (RisperDAL M) 0.75 mg QHS PO 08/06/21 21:00 08/14/21 18:13 DC 08/13/21 20:04 Divalproex Sodium (Depakote Sprinkles) 500 mg BID PO 08/10/21 21:00 08/12/21 08:29 DC 08/12/21 08:17 Valproic Acid (Depakene) 500 mg BID PO 08/12/21 21:00 08/18/21 19:50 Mirtazapine (Remeron) 15 mg QHS PO 08/14/21 21:00 08/18/21 19:50 Risperidone (RisperDAL M) 1 mg QHS PO 08/14/21 21:00 08/16/21 18:00 DC 08/15/21 21:09 Risperidone (RisperDAL M) 1.25 mg QHS PO 08/16/21 21:00 08/18/21 19:51 Risperidone (RisperDAL CONSTA) 25 mg Q2WKS IM 08/18/21 09:00 08/18/21 08:43 DC Risperidone (RisperDAL CONSTA) 25 mg Q2WKS IM 08/19/21 10:00 I have reviewed the current psychotropics carefully including drug interactions. Risk benefit ratio favors no change other than as noted in my dictated progress note. Diagnosis: Problems: (1) Schizoaffective disorder, bipolar type (2) Impulse control disorder, unspecified (3) Anxiety disorder, unspecified (4) Bipolar disorder, curr episode mixed, severe, with psychotic features ENOCH YBARRA MD Aug 18, 2021 21:01
--- NOTE | 2021-08-18 22:50 | NUR ---
Patient is sitting in her room on assumption of care, napping intermittently. She remains irritable and snarky in interactions with staff. She was compliant with her HS medications mixed in with Depakene. Denies any pain or discomfort. She appears to be sleeping in her chair at present time. Will continue to monitor.
[2021-08-19] MEDS: LEVOTHYROXINE 75 MCG TABLET PO SCH (05:27)
[2021-08-19 05:42] VITALS: BP 151/87
[2021-08-19] MEDS: VALPROATE ACID 250 MG/5 ML ORAL SOLUTION PO SCH ×2 (09:00→20:14)
[2021-08-19] MEDS: AMMONIUM LACTATE 12% TOPICAL LOTION 226GM BOTTLE. TP SCH ×2 (09:00→20:15)
[2021-08-19] MEDS ORDERED: risperiDONE MICROSPHERES 25 MG/2 ML DISP.SYRIN. IM SCH (10:00)
--- NOTE | 2021-08-19 12:50 | NUR ---
WEEKLY ACTIVITY THERAPY NOTE Date of Admission: 08/02/21 Date of AT Assessment: 08/05 Precipitating behaviors that initiated intake and admission: Agitation, attempting to elope, resisting cares/ADLs, yelling at staff, layering clothing Goal aimed: increase stress management and relaxation skills Initial Goal:Pt will participate in at least three Activity Therapy sessions before discharge Weekly progress towards goal: on track (08/12-) Group participation level: 1 min Weekly highlights: answered on tribond question Thursday Behaviors observed: interrupting group by speaking off topic Thursday and , asking questions and then immediately answering them, taking in different accents Plan: no change to goal Beneficial adaptations:
--- NOTE | 2021-08-19 13:29 | NUR ---
Treatment team update: Pt is eating 75% of meals and sleeping on average 4.5 hours per night. Pt continues to be manipulative, at times irritable and has selective hearing. For example, pt was started on Risperdal Consta (IM); when nursing gave pt the option of arm or buttocks, pt looked the other way as though she did not hear anything. Nursing ended up giving it to pt in her buttocks and she yelled afterwards "no I wanted it in my arm". Pt over the weekend took her Depakene and stated "jokes on you, there was nothing in that cup"; however, this morning, pt refused. VPA is therapeutic at 80. Pt is picking at her scabs in which nursing continues to educate and remind her to not do so. Pt attended one group this week with minimal participation and needed redirection for being disruptive. It was discussed in treatment team how some of this is personality for pt and needs to have boundaries and expectations stated up front with consequences for actions when needed. PARUL will update the facility and pt dtr; ARIANNA for 08/22.
--- NOTE | 2021-08-19 14:26 | NUR ---
Nursing notes: Patient in dinning room for morning medications & assessment. She refused to take medications. She was acting as if she could not hear this nurse, refused to answer assessment questions. She got a shower and leg creams in the morning. She received first IM dose of Risperdal this am. She was picking scabs on legs before lunch. Patient frequently irritable and demanding towards staff. She does not interact with peers. She refused to go to day room to participate in group. She ambulates independently with walker. She is currently sitting in a chair in the [place]. Will continue to monitor.
[2021-08-19 15:27] VITALS: BP 105/68
[2021-08-19] MEDS: risperiDONE ODT 1 MG TAB.RAPDIS. PO SCH (20:15)
[2021-08-19] MEDS: MIRTAZAPINE 15 MG TABLET PO SCH (20:15)
--- NOTE | 2021-08-19 21:51 | PDOC ---
Exam Note: Prasanna Note: This note is a late entry for 08/17/2021 covers elements not covered in my initial note. Subjective: The patient was seen individually in the evening of 08/17/2021 with Ramandeep SWIFT, discussed and reviewed the chart. The patient slept 1-1/2 hours previous night. She is resistive to medications. She is very reluctant to take any of her psychotropics. Patients daughter who is power of real estate economist has called the nursing staff and is hoping that her mother can be started on long- acting atypical antipsychotics as mood stabilizers. I met with her in her room. Review of Systems: Ambulation impaired with walker. Positive for pedal edema and discomfort in her foot. She is hard of hearing or at least has selective hearing. No CV, , pulmonary, eye system symptoms on review. Mental Status Exam: The patient is reasonably oriented. Speech coherent, somewhat high pitched at times. Abstraction fair. Computation impaired. Language function intact. She is quite paranoid, suspicious. No suicidal or homicidal ideation. Laboratory Data: Reviewed. Impression: Schizoaffective disorder bipolar type with psychotic features. Anxiety disorder unspecified. Impulse control disorder unspecified. Plan: We will go ahead and start her on Risperdal Consta 25 mg IM q. 2 weeks. Maintain rest of the psychotropics unchanged. We will reduce the oral Risperdal once the intramuscular has taken effect in a couple of weeks. Continue rest unchanged. Assessment: Vital Signs/I&O: Vital Signs Date Time Temp Pulse Resp B/P (MAP) Pulse Ox O2 Delivery O2 Flow Rate FiO2 08/19/21 15:27 98.7 87 16 105/68 (80) 97 08/18/21 16:08 Room Air I & O 08/18/21 08/18/21 08/19/21 15:00 23:00 07:00 Intake Total 600 ml 720 ml Balance 600 ml 720 ml Labs: Laboratory Tests Test 08/19/21 05:40 Free Thyroxine 0.57 ng/dL (0.76-1.46) L Free Triiodothyronine (T3) pg/mL 1.67 pg/mL (2.18-3.98) L Current Medications: Meds: Laboratory Tests Test 08/19/21 05:40 Free Thyroxine 0.57 ng/dL Free Triiodothyronine (T3) pg/mL 1.67 pg/mL Current Medications Medications (Trade) Dose Ordered Sig/Ervin Route PRN Reason Start Time Stop Time Status Last Admin Dose Admin Ibuprofen (Motrin) 600 mg PRN Q6HRS PRN PO PAIN 08/02/21 16:45 08/03/21 16:14 DC 08/02/21 23:17 Levothyroxine Sodium (Synthroid) 75 mcg DAILY06 PO 08/03/21 06:00 08/19/21 05:27 Olanzapine (ZyPREXA) 5 mg PRN Q4HRS PRN PO AGITATION 08/02/21 16:45 08/02/21 22:47 DC Lactobacillus Rhamnosus (Culturelle) 1 cap DAILY PO 08/03/21 09:00 08/17/21 19:15 DC 08/15/21 08:31 Multi-Ingred Cream/Lotion/Oil/ Oint (Hydrocerin) 1 rachel BID TP 08/02/21 21:00 08/03/21 19:28 DC Mupirocin (Bactroban) 1 rachel DAILY TP 08/03/21 09:00 08/03/21 16:16 DC Acetaminophen (Tylenol) 650 mg PRN Q6HRS PRN PO MILD PAIN / TEMP > 100.3'F 08/02/21 16:45 08/17/21 05:38 Multi-Ingredient Ointment (Analgesic [place]) 1 rachel PRN QID PRN TP MUSCLE PAIN 08/02/21 16:45 Al Hydroxide/Mg Hydroxide (Mylanta Plus Xs) 15 ml PRN AFTMEALHC PRN PO DYSPEPSIA 08/02/21 16:45 Magnesium Hydroxide (Milk Of Magnesia) 2,400 mg PRN QHS PRN PO CONSTIPATION 08/02/21 16:45 Influenza Virus Vaccine Quadrival (Flulaval Quad [id number] Syringe) 0.5 ml ONCE ONCE VAX IM 08/02/21 19:00 08/02/21 19:01 DC 08/03/21 12:43 Olanzapine (ZyPREXA) 2.5 mg PRN Q2HRS PRN PO AGITATION 08/02/21 23:00 08/02/21 23:24 DC Olanzapine (ZyPREXA ZYDIS) 2.5 mg PRN Q2HR PRN PO PSYCHOSIS 08/02/21 23:30 08/18/21 04:53 Lactic Acid (Lac-Hydrin) 1 rachel BID TP 08/03/21 21:00 08/19/21 09:00 Multi-Ingred Cream/Lotion/Oil/ Oint (Hydrocerin) 1 rachel PRN BID PRN TP DRY SKIN 08/03/21 19:30 Mirtazapine (Remeron) 7.5 mg QHS PO 08/03/21 21:00 08/14/21 18:13 DC 08/13/21 20:04 Divalproex Sodium (Depakote Sprinkles) 500 mg QHS PO 08/03/21 21:00 08/10/21 17:54 DC 08/09/21 20:34 Trazodone HCl (Desyrel) 50 mg PRN QHS PRN PO INSOMNIA, MAY REPEAT X1 08/03/21 20:45 08/05/21 20:57 Risperidone (RisperDAL M) 0.5 mg DAILY PO 08/04/21 09:00 08/08/21 11:09 DC 08/07/21 09:52 Levofloxacin (Levaquin) 250 mg DAILY06 PO 08/07/21 06:00 08/16/21 22:00 DC 08/15/21 08:22 Risperidone (RisperDAL M) 0.75 mg QHS PO 08/06/21 21:00 08/14/21 18:13 DC 08/13/21 20:04 Divalproex Sodium (Depakote Sprinkles) 500 mg BID PO 08/10/21 21:00 08/12/21 08:29 DC 08/12/21 08:17 Valproic Acid (Depakene) 500 mg BID PO 08/12/21 21:00 08/19/21 20:14 Mirtazapine (Remeron) 15 mg QHS PO 08/14/21 21:00 08/19/21 20:15 Risperidone (RisperDAL M) 1 mg QHS PO 08/14/21 21:00 08/16/21 18:00 DC 08/15/21 21:09 Risperidone (RisperDAL M) 1.25 mg QHS PO 08/16/21 21:00 08/19/21 20:15 Risperidone (RisperDAL CONSTA) 25 mg Q2WKS IM 08/18/21 09:00 08/18/21 08:43 DC Risperidone (RisperDAL CONSTA) 25 mg Q2WKS IM 08/19/21 10:00 08/19/21 10:05 Current Medications Medications (Trade) Dose Ordered Sig/Ervin Route PRN Reason Start Time Stop Time Status Last Admin Dose Admin Risperidone (RisperDAL CONSTA) 25 mg Q2WKS IM 08/19/21 10:00 08/19/21 10:05 I have reviewed the current psychotropics carefully including drug interactions. Risk benefit ratio favors no change other than as noted in my dictated progress note. Diagnosis: Problems: (1) Schizoaffective disorder, bipolar type (2) Impulse control disorder, unspecified (3) Anxiety disorder, unspecified (4) Bipolar disorder, curr episode mixed, severe, with psychotic features ENOCH YBARRA MD Aug 19, 2021 21:51
--- NOTE | 2021-08-19 22:27 | PDOC ---
Exam Note: Prasanna Note: Please also refer to the separate dictated note~for this date of service dictated separately.~Patient seen individually. Discussed the patient with Nursing staff reviewed the chart.~Reviewed interim history and current functioning. Reviewed vital signs,~Labs/ Radiology~and current medications noted below. Continue current treatment with the changes noted in the dictated addendum note Assessment: Vital Signs/I&O: Vital Signs Date Time Temp Pulse Resp B/P (MAP) Pulse Ox O2 Delivery O2 Flow Rate FiO2 08/19/21 15:27 98.7 87 16 105/68 (80) 97 08/18/21 16:08 Room Air I & O 08/18/21 08/18/21 08/19/21 15:00 23:00 07:00 Intake Total 600 ml 720 ml Balance 600 ml 720 ml Labs: Laboratory Tests Test 08/19/21 05:40 Free Thyroxine 0.57 ng/dL (0.76-1.46) L Thyroxine (T4) 3.8 ug/dL (4.5-12.0) L Free Triiodothyronine (T3) pg/mL 1.67 pg/mL (2.18-3.98) L Current Medications: Meds: Laboratory Tests Test 08/19/21 05:40 Free Thyroxine 0.57 ng/dL Thyroxine (T4) 3.8 ug/dL Free Triiodothyronine (T3) pg/mL 1.67 pg/mL Current Medications Medications (Trade) Dose Ordered Sig/Ervin Route PRN Reason Start Time Stop Time Status Last Admin Dose Admin Ibuprofen (Motrin) 600 mg PRN Q6HRS PRN PO PAIN 08/02/21 16:45 08/03/21 16:14 DC 08/02/21 23:17 Levothyroxine Sodium (Synthroid) 75 mcg DAILY06 PO 08/03/21 06:00 08/19/21 05:27 Olanzapine (ZyPREXA) 5 mg PRN Q4HRS PRN PO AGITATION 08/02/21 16:45 08/02/21 22:47 DC Lactobacillus Rhamnosus (Culturelle) 1 cap DAILY PO 08/03/21 09:00 08/17/21 19:15 DC 08/15/21 08:31 Multi-Ingred Cream/Lotion/Oil/ Oint (Hydrocerin) 1 rachel BID TP 08/02/21 21:00 08/03/21 19:28 DC Mupirocin (Bactroban) 1 rachel DAILY TP 08/03/21 09:00 08/03/21 16:16 DC Acetaminophen (Tylenol) 650 mg PRN Q6HRS PRN PO MILD PAIN / TEMP > 100.3'F 08/02/21 16:45 08/17/21 05:38 Multi-Ingredient Ointment (Analgesic [place]) 1 rachel PRN QID PRN TP MUSCLE PAIN 08/02/21 16:45 Al Hydroxide/Mg Hydroxide (Mylanta Plus Xs) 15 ml PRN AFTMEALHC PRN PO DYSPEPSIA 08/02/21 16:45 Magnesium Hydroxide (Milk Of Magnesia) 2,400 mg PRN QHS PRN PO CONSTIPATION 08/02/21 16:45 Influenza Virus Vaccine Quadrival (Flulaval Quad [id number] Syringe) 0.5 ml ONCE ONCE VAX IM 08/02/21 19:00 08/02/21 19:01 DC 08/03/21 12:43 Olanzapine (ZyPREXA) 2.5 mg PRN Q2HRS PRN PO AGITATION 08/02/21 23:00 08/02/21 23:24 DC Olanzapine (ZyPREXA ZYDIS) 2.5 mg PRN Q2HR PRN PO PSYCHOSIS 08/02/21 23:30 08/18/21 04:53 Lactic Acid (Lac-Hydrin) 1 rachel BID TP 08/03/21 21:00 08/19/21 09:00 Multi-Ingred Cream/Lotion/Oil/ Oint (Hydrocerin) 1 rachel PRN BID PRN TP DRY SKIN 08/03/21 19:30 Mirtazapine (Remeron) 7.5 mg QHS PO 08/03/21 21:00 08/14/21 18:13 DC 08/13/21 20:04 Divalproex Sodium (Depakote Sprinkles) 500 mg QHS PO 08/03/21 21:00 08/10/21 17:54 DC 08/09/21 20:34 Trazodone HCl (Desyrel) 50 mg PRN QHS PRN PO INSOMNIA, MAY REPEAT X1 08/03/21 20:45 08/05/21 20:57 Risperidone (RisperDAL M) 0.5 mg DAILY PO 08/04/21 09:00 08/08/21 11:09 DC 08/07/21 09:52 Levofloxacin (Levaquin) 250 mg DAILY06 PO 08/07/21 06:00 08/16/21 22:00 DC 08/15/21 08:22 Risperidone (RisperDAL M) 0.75 mg QHS PO 08/06/21 21:00 08/14/21 18:13 DC 08/13/21 20:04 Divalproex Sodium (Depakote Sprinkles) 500 mg BID PO 08/10/21 21:00 08/12/21 08:29 DC 08/12/21 08:17 Valproic Acid (Depakene) 500 mg BID PO 08/12/21 21:00 08/19/21 20:14 Mirtazapine (Remeron) 15 mg QHS PO 08/14/21 21:00 08/19/21 20:15 Risperidone (RisperDAL M) 1 mg QHS PO 08/14/21 21:00 08/16/21 18:00 DC 08/15/21 21:09 Risperidone (RisperDAL M) 1.25 mg QHS PO 08/16/21 21:00 08/19/21 20:15 Risperidone (RisperDAL CONSTA) 25 mg Q2WKS IM 08/18/21 09:00 08/18/21 08:43 DC Risperidone (RisperDAL CONSTA) 25 mg Q2WKS IM 08/19/21 10:00 08/19/21 10:05 Current Medications Medications (Trade) Dose Ordered Sig/Ervin Route PRN Reason Start Time Stop Time Status Last Admin Dose Admin Risperidone (RisperDAL CONSTA) 25 mg Q2WKS IM 08/19/21 10:00 08/19/21 10:05 I have reviewed the current psychotropics carefully including drug interactions. Risk benefit ratio favors no change other than as noted in my dictated progress note. Diagnosis: Problems: (1) Schizoaffective disorder, bipolar type (2) Impulse control disorder, unspecified (3) Anxiety disorder, unspecified (4) Bipolar disorder, curr episode mixed, severe, with psychotic features ENOCH YBARRA MD Aug 19, 2021 22:27
--- NOTE | 2021-08-19 22:27 | PDOC ---
Exam Note: Prasanna Note: This note is a late entry for 08/18/2021 covers elements not covered in my initial note. Subjective: The patient was seen individually in the evening of 08/18/2021 with Ramandeep SWIFT, discussed and reviewed the chart. The patient slept 4-1/2 hours previous night. Patient took her medications last night but will be starting on Risperdal Consta tomorrow on 08/19 as pharmacy did not have it available today. I met with her in her room. She again complains of pedal edema, feels she has an ingrown toenail. We will defer to Dr. Phelps. Review of Systems: Ambulation impaired with walker. She again complains of pedal edema. She is hard of hearing. No CV, , pulmonary, eye system symptoms on review. Mental Status Exam: The patient is oriented to herself and situation. Speech somewhat high pitched. Abstraction fair. Computation impaired. Language function intact. Attention span short. Mood and affect withdrawn. Laboratory Data: Reviewed. Impression: Schizoaffective disorder bipolar type with psychotic features. Anxiety disorder unspecified. Impulse control disorder unspecified. Plan: No change from initial note. Assessment: Vital Signs/I&O: Vital Signs Date Time Temp Pulse Resp B/P (MAP) Pulse Ox O2 Delivery O2 Flow Rate FiO2 08/19/21 15:27 98.7 87 16 105/68 (80) 97 08/18/21 16:08 Room Air I & O 08/18/21 08/18/21 08/19/21 15:00 23:00 07:00 Intake Total 600 ml 720 ml Balance 600 ml 720 ml Labs: Laboratory Tests Test 08/19/21 05:40 Free Thyroxine 0.57 ng/dL (0.76-1.46) L Thyroxine (T4) 3.8 ug/dL (4.5-12.0) L Free Triiodothyronine (T3) pg/mL 1.67 pg/mL (2.18-3.98) L Current Medications: Meds: Laboratory Tests Test 08/19/21 05:40 Free Thyroxine 0.57 ng/dL Thyroxine (T4) 3.8 ug/dL Free Triiodothyronine (T3) pg/mL 1.67 pg/mL Current Medications Medications (Trade) Dose Ordered Sig/Ervin Route PRN Reason Start Time Stop Time Status Last Admin Dose Admin Ibuprofen (Motrin) 600 mg PRN Q6HRS PRN PO PAIN 08/02/21 16:45 08/03/21 16:14 DC 08/02/21 23:17 Levothyroxine Sodium (Synthroid) 75 mcg DAILY06 PO 08/03/21 06:00 08/19/21 05:27 Olanzapine (ZyPREXA) 5 mg PRN Q4HRS PRN PO AGITATION 08/02/21 16:45 08/02/21 22:47 DC Lactobacillus Rhamnosus (Culturelle) 1 cap DAILY PO 08/03/21 09:00 08/17/21 19:15 DC 08/15/21 08:31 Multi-Ingred Cream/Lotion/Oil/ Oint (Hydrocerin) 1 rachel BID TP 08/02/21 21:00 08/03/21 19:28 DC Mupirocin (Bactroban) 1 rachel DAILY TP 08/03/21 09:00 08/03/21 16:16 DC Acetaminophen (Tylenol) 650 mg PRN Q6HRS PRN PO MILD PAIN / TEMP > 100.3'F 08/02/21 16:45 08/17/21 05:38 Multi-Ingredient Ointment (Analgesic [place]) 1 rachel PRN QID PRN TP MUSCLE PAIN 08/02/21 16:45 Al Hydroxide/Mg Hydroxide (Mylanta Plus Xs) 15 ml PRN AFTMEALHC PRN PO DYSPEPSIA 08/02/21 16:45 Magnesium Hydroxide (Milk Of Magnesia) 2,400 mg PRN QHS PRN PO CONSTIPATION 08/02/21 16:45 Influenza Virus Vaccine Quadrival (Flulaval Quad [id number] Syringe) 0.5 ml ONCE ONCE VAX IM 08/02/21 19:00 08/02/21 19:01 DC 08/03/21 12:43 Olanzapine (ZyPREXA) 2.5 mg PRN Q2HRS PRN PO AGITATION 08/02/21 23:00 08/02/21 23:24 DC Olanzapine (ZyPREXA ZYDIS) 2.5 mg PRN Q2HR PRN PO PSYCHOSIS 08/02/21 23:30 08/18/21 04:53 Lactic Acid (Lac-Hydrin) 1 rachel BID TP 08/03/21 21:00 08/19/21 09:00 Multi-Ingred Cream/Lotion/Oil/ Oint (Hydrocerin) 1 rachel PRN BID PRN TP DRY SKIN 08/03/21 19:30 Mirtazapine (Remeron) 7.5 mg QHS PO 08/03/21 21:00 08/14/21 18:13 DC 08/13/21 20:04 Divalproex Sodium (Depakote Sprinkles) 500 mg QHS PO 08/03/21 21:00 08/10/21 17:54 DC 08/09/21 20:34 Trazodone HCl (Desyrel) 50 mg PRN QHS PRN PO INSOMNIA, MAY REPEAT X1 08/03/21 20:45 08/05/21 20:57 Risperidone (RisperDAL M) 0.5 mg DAILY PO 08/04/21 09:00 08/08/21 11:09 DC 08/07/21 09:52 Levofloxacin (Levaquin) 250 mg DAILY06 PO 08/07/21 06:00 08/16/21 22:00 DC 08/15/21 08:22 Risperidone (RisperDAL M) 0.75 mg QHS PO 08/06/21 21:00 08/14/21 18:13 DC 08/13/21 20:04 Divalproex Sodium (Depakote Sprinkles) 500 mg BID PO 08/10/21 21:00 08/12/21 08:29 DC 08/12/21 08:17 Valproic Acid (Depakene) 500 mg BID PO 08/12/21 21:00 08/19/21 20:14 Mirtazapine (Remeron) 15 mg QHS PO 08/14/21 21:00 08/19/21 20:15 Risperidone (RisperDAL M) 1 mg QHS PO 08/14/21 21:00 08/16/21 18:00 DC 08/15/21 21:09 Risperidone (RisperDAL M) 1.25 mg QHS PO 08/16/21 21:00 08/19/21 20:15 Risperidone (RisperDAL CONSTA) 25 mg Q2WKS IM 08/18/21 09:00 08/18/21 08:43 DC Risperidone (RisperDAL CONSTA) 25 mg Q2WKS IM 08/19/21 10:00 08/19/21 10:05 Current Medications Medications (Trade) Dose Ordered Sig/Ervin Route PRN Reason Start Time Stop Time Status Last Admin Dose Admin Risperidone (RisperDAL CONSTA) 25 mg Q2WKS IM 08/19/21 10:00 08/19/21 10:05 I have reviewed the current psychotropics carefully including drug interactions. Risk benefit ratio favors no change other than as noted in my dictated progress note. Diagnosis: Problems: (1) Schizoaffective disorder, bipolar type (2) Impulse control disorder, unspecified (3) Anxiety disorder, unspecified (4) Bipolar disorder, curr episode mixed, severe, with psychotic features ENOCH YBARRA MD Aug 19, 2021 22:27
--- NOTE | 2021-08-19 22:36 | NUR ---
Patient has been speaking in a sing song manner in a faux [place] accent this evening. She demanded snacks and drinks when she saw staff with the snack cart. Nurse took medications to patient in the hallway, patient was initially refusing to take medications. As the snack cart came closer and nurse told her she would NOT be getting anything until she took the medications. Patient then drank half of the Depakene from a cup and took the Risperdal and Remeron one at a time, swallowing very dramatically after each medication. She drank the second half of the Depakene and then she began to make herself cough and told nurse that she "had just been poisoned". As patient continued to force herself cough, she was asked to go to her room or cover her mouth. Patient refused to cover her mouth and continued to force herself to cough until she began to actually cough. Patient then said "Eladio told me to just take them, the pills, and to shut my mouth". She would not tell nurse who Eladio is. Patient refused physical assessment and told nurse "do not even touch me". Patient would not tell tech what flavor of Gatorade she wanted and demanded two packets of cheesy crackers. She was given red Gatorade and then went to her room. Patient is currently asleep, in the chair in her room. She does not sleep in the bed.
[2021-08-20] MEDS: LEVOTHYROXINE 75 MCG TABLET PO SCH (05:43)
[2021-08-20 06:12] VITALS: BP 125/84
[2021-08-20] MEDS: AMMONIUM LACTATE 12% TOPICAL LOTION 226GM BOTTLE. TP SCH ×2 (08:47→21:01)
[2021-08-20] MEDS: VALPROATE ACID 250 MG/5 ML ORAL SOLUTION PO SCH ×2 (08:47→21:00)
--- NOTE | 2021-08-20 14:40 | NUR ---
Nursing notes: Patient in dinning room for morning medications & assessment. She was compliant taking liquid medications. She was acting as if she could not hear this nurse, refused to answer assessment questions. She refused leg creams. Patient frequently irritable and demanding towards staff. She does not interact with peers. She refused to go to day room to participate in group. She ambulates independently with walker. She is currently sitting in a chair in her room. Will continue to monitor.
--- NOTE | 2021-08-20 15:25 | NUR ---
Wound/Ostomy Care Wound Type/Assessment: Wound follow up for RLE wounds. Pt has abrasions to right anterior lower leg and lateral ankle that are now scabbed. Measured, cleansed and assessed wounds. Treatment Recommendations/Plan: [place] with skin prep every 3 days, leave REGULATORY AFFAIRS ASSISTANT unless they begin to drain Education provided: WC POC and PU prevention, pt will need reinforcement of teaching due to mental status. Offloading surface/device: na Recommended Referrals/Tests: na Discharge Recommendations for dressings: see above
[2021-08-20 15:44] VITALS: BP 117/60
--- NOTE | 2021-08-20 20:53 | PDOC ---
Exam Note: Prasanna Note: Please also refer to the separate dictated note~for this date of service dictated separately.~Patient seen individually. Discussed the patient with Nursing staff reviewed the chart.~Reviewed interim history and current functioning. Reviewed vital signs,~Labs/ Radiology~and current medications noted below. Continue current treatment with the changes noted in the dictated addendum note Assessment: Vital Signs/I&O: Vital Signs Date Time Temp Pulse Resp B/P (MAP) Pulse Ox O2 Delivery O2 Flow Rate FiO2 08/20/21 15:44 98.9 109 20 117/60 (79) 92 08/18/21 16:08 Room Air I & O 08/19/21 08/19/21 08/20/21 15:00 23:00 07:00 Intake Total 720 ml 180 ml 240 ml Balance 720 ml 180 ml 240 ml Current Medications: Meds: Current Medications Medications (Trade) Dose Ordered Sig/Ervin Route PRN Reason Start Time Stop Time Status Last Admin Dose Admin Ibuprofen (Motrin) 600 mg PRN Q6HRS PRN PO PAIN 08/02/21 16:45 08/03/21 16:14 DC 08/02/21 23:17 Levothyroxine Sodium (Synthroid) 75 mcg DAILY06 PO 08/03/21 06:00 08/20/21 05:43 Olanzapine (ZyPREXA) 5 mg PRN Q4HRS PRN PO AGITATION 08/02/21 16:45 08/02/21 22:47 DC Lactobacillus Rhamnosus (Culturelle) 1 cap DAILY PO 08/03/21 09:00 08/17/21 19:15 DC 08/15/21 08:31 Multi-Ingred Cream/Lotion/Oil/ Oint (Hydrocerin) 1 rachel BID TP 08/02/21 21:00 08/03/21 19:28 DC Mupirocin (Bactroban) 1 rachel DAILY TP 08/03/21 09:00 08/03/21 16:16 DC Acetaminophen (Tylenol) 650 mg PRN Q6HRS PRN PO MILD PAIN / TEMP > 100.3'F 08/02/21 16:45 08/17/21 05:38 Multi-Ingredient Ointment (Analgesic [place]) 1 rachel PRN QID PRN TP MUSCLE PAIN 08/02/21 16:45 Al Hydroxide/Mg Hydroxide (Mylanta Plus Xs) 15 ml PRN AFTMEALHC PRN PO DYSPEPSIA 08/02/21 16:45 Magnesium Hydroxide (Milk Of Magnesia) 2,400 mg PRN QHS PRN PO CONSTIPATION 08/02/21 16:45 Influenza Virus Vaccine Quadrival (Flulaval Quad Syringe) 0.5 ml ONCE ONCE VAX IM 08/02/21 19:00 08/02/21 19:01 DC 08/03/21 12:43 Olanzapine (ZyPREXA) 2.5 mg PRN Q2HRS PRN PO AGITATION 08/02/21 23:00 08/02/21 23:24 DC Olanzapine (ZyPREXA ZYDIS) 2.5 mg PRN Q2HR PRN PO PSYCHOSIS 08/02/21 23:30 08/18/21 04:53 Lactic Acid (Lac-Hydrin) 1 rachel BID TP 08/03/21 21:00 08/19/21 09:00 Multi-Ingred Cream/Lotion/Oil/ Oint (Hydrocerin) 1 rachel PRN BID PRN TP DRY SKIN 08/03/21 19:30 Mirtazapine (Remeron) 7.5 mg QHS PO 08/03/21 21:00 08/14/21 18:13 DC 08/13/21 20:04 Divalproex Sodium (Depakote Sprinkles) 500 mg QHS PO 08/03/21 21:00 08/10/21 17:54 DC 08/09/21 20:34 Trazodone HCl (Desyrel) 50 mg PRN QHS PRN PO INSOMNIA, MAY REPEAT X1 08/03/21 20:45 08/05/21 20:57 Risperidone (RisperDAL M) 0.5 mg DAILY PO 08/04/21 09:00 08/08/21 11:09 DC 08/07/21 09:52 Levofloxacin (Levaquin) 250 mg DAILY06 PO 08/07/21 06:00 08/16/21 22:00 DC 08/15/21 08:22 Risperidone (RisperDAL M) 0.75 mg QHS PO 08/06/21 21:00 08/14/21 18:13 DC 08/13/21 20:04 Divalproex Sodium (Depakote Sprinkles) 500 mg BID PO 08/10/21 21:00 11/8/21 08:29 DC 08/12/21 08:17 Valproic Acid (Depakene) 500 mg BID PO 08/12/21 21:00 08/20/21 08:47 Mirtazapine (Remeron) 15 mg QHS PO 08/14/21 21:00 08/19/21 20:15 Risperidone (RisperDAL M) 1 mg QHS PO 08/14/21 21:00 08/16/21 18:00 DC 08/15/21 21:09 Risperidone (RisperDAL M) 1.25 mg QHS PO 08/16/21 21:00 08/19/21 20:15 Risperidone (RisperDAL CONSTA) 25 mg Q2WKS IM 08/18/21 09:00 08/18/21 08:43 DC Risperidone (RisperDAL CONSTA) 25 mg Q2WKS IM 08/19/21 10:00 08/19/21 10:05 I have reviewed the current psychotropics carefully including drug interactions. Risk benefit ratio favors no change other than as noted in my dictated progress note. Diagnosis: Problems: (1) Schizoaffective disorder, bipolar type (2) Impulse control disorder, unspecified (3) Anxiety disorder, unspecified (4) Bipolar disorder, curr episode mixed, severe, with psychotic features ENOCH YBARRA MD Aug 20, 2021 20:53
[2021-08-20] MEDS: MIRTAZAPINE 15 MG TABLET PO SCH ×2 (21:00→21:32)
[2021-08-20] MEDS: risperiDONE ODT 1 MG TAB.RAPDIS. PO SCH ×2 (21:00→21:32)
--- NOTE | 2021-08-20 21:07 | NUR ---
Patient is in her room yelling "where is my snack" in her high, faux [place] accent. Nurse brought a sprite and cheese crackers to patients room along with her HS meds. Patient drank Depakane, asked "what are those pills", when told they are remeron and risperdal, she asked what they are for. Nurse explained purpose and provided education. Patient stated "I will not take those, now get out of my room". Nurse withheld HS snack, advising patient she can have the snack and sprite when she takes the remainder of her HS medications. Patient refused assessment and called this nurse a Bitch.
[2021-08-21] MEDS: LEVOTHYROXINE 75 MCG TABLET PO SCH (05:37)
[2021-08-21 05:58] VITALS: BP 113/74
[2021-08-21 06:09] LABS: BASO % 0 % (0-3); EOS # 0.1 x10^3/uL (0.0-0.7); EOS % 2 % (0-3); HEMATOCRIT 34.2 % (36.0-47.0); HEMOGLOBIN 11.3 g/dL (12.0-15.5); LYMPH # 1.1 x10^3/uL (1.0-4.8); LYMPH % 19 % (24-48); MEAN CORPUSCULAR HEMOGLOBIN 29 pg (25-35); MEAN CORPUSCULAR HGB CONC 33 g/dL (31-37); MEAN CORPUSCULAR VOLUME 89 fL (79-100); MONO # 0.7 x10^3/uL (0.0-1.1); MONO % 12 % (0-9); NEUT # 3.7 x10^3uL (1.8-7.7); NEUT % 67 % (31-73); PLATELET COUNT 234 x10^3/uL (140-400); RED BLOOD COUNT 3.85 x10^6/uL (3.50-5.40); RED CELL DISTRIBUTION WIDTH 16.5 % (11.5-14.5); WHITE BLOOD COUNT 5.6 x10^3/uL (4.0-11.0)
[2021-08-21 06:23] LABS: ALBUMIN 3.2 g/dL (3.4-5.0); ALBUMIN/GLOBULIN RATIO 0.9 (1.0-1.7); CALCIUM 9.3 mg/dL (8.5-10.1); CREATININE 0.8 mg/dL (0.6-1.0); GFR 69.6; POTASSIUM 4.7 mmol/L (3.5-5.1); TOTAL BILIRUBIN 0.3 mg/dL (0.2-1.0); TOTAL PROTEIN 6.6 g/dL (6.4-8.2)
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
--- NOTE | 2021-08-21 07:52 | PDOC ---
Exam Note: Prasanna Note: This note is a late entry for 08/20/2021 covers elements not covered in my initial note. Subjective: The patient was seen individually in the evening of 08/20/2021 with Delmis SWIFT, discussed and reviewed the chart. The patient slept 5-1/4 hours previous night. I met with her in her room. She was seated in the sofa in the room, trying to sleep. Review of Systems: Ambulation impaired with walker. She is hard of hearing. No CV, , pulmonary, eye system symptoms on review. Mental Status Exam: The patient is oriented to herself and situation. Speech somewhat high pitched. Abstraction fair. Computation impaired. Language function intact. Attention span short. Mood and affect withdrawn. Laboratory Data: Reviewed. Impression: Schizoaffective disorder bipolar type with psychotic features. Anxiety disorder unspecified. Impulse control disorder unspecified. Plan: No change from initial note. Assessment: Vital Signs/I&O: Vital Signs Date Time Temp Pulse Resp B/P (MAP) Pulse Ox O2 Delivery O2 Flow Rate FiO2 08/21/21 05:58 97.7 100 20 113/74 (87) 91 Room Air I & O 08/20/21 08/20/21 08/21/21 15:00 23:00 07:00 Intake Total 740 ml 240 ml Balance 740 ml 240 ml Labs: Laboratory Tests Test 08/21/21 05:39 White Blood Count 5.6 x10^3/uL (4.0-11.0) Red Blood Count 3.85 x10^6/uL (3.50-5.40) Hemoglobin 11.3 g/dL (12.0-15.5) L Hematocrit 34.2 % (36.0-47.0) L Mean Corpuscular Volume 89 fL (79-100) Mean Corpuscular Hemoglobin 29 pg (25-35) Mean Corpuscular Hemoglobin Concent 33 g/dL (31-37) Red Cell Distribution Width 16.5 % (11.5-14.5) H Platelet Count 234 x10^3/uL (140-400) Neutrophils (%) (Auto) 67 % (31-73) Lymphocytes (%) (Auto) 19 % (24-48) L Monocytes (%) (Auto) 12 % (0-9) H Eosinophils (%) (Auto) 2 % (0-3) Basophils (%) (Auto) 0 % (0-3) Neutrophils # (Auto) 3.7 x10^3uL (1.8-7.7) Lymphocytes # (Auto) 1.1 x10^3/uL (1.0-4.8) Monocytes # (Auto) 0.7 x10^3/uL (0.0-1.1) Eosinophils # (Auto) 0.1 x10^3/uL (0.0-0.7) Basophils # (Auto) 0.0 x10^3/uL (0.0-0.2) Sodium Level 141 mmol/L (136-145) Potassium Level 4.7 mmol/L (3.5-5.1) Chloride Level 103 mmol/L (98-107) Carbon Dioxide Level 31 mmol/L (21-32) Anion Gap 7 (6-14) Blood Urea Nitrogen 31 mg/dL (7-20) H Creatinine 0.8 mg/dL (0.6-1.0) Estimated GFR (Cockcroft-Gault) 69.6 BUN/Creatinine Ratio 39 (6-20) H Glucose Level 89 mg/dL (70-99) Calcium Level 9.3 mg/dL (8.5-10.1) Total Bilirubin 0.3 mg/dL (0.2-1.0) Aspartate Amino Transferase (AST) 14 U/L (15-37) L Alanine Aminotransferase (ALT) 13 U/L (14-59) L Alkaline Phosphatase 115 U/L (46-116) Total Protein 6.6 g/dL (6.4-8.2) Albumin 3.2 g/dL (3.4-5.0) L Albumin/Globulin Ratio 0.9 (1.0-1.7) L Current Medications: Meds: Laboratory Tests Test 08/21/21 05:39 White Blood Count 5.6 x10^3/uL Red Blood Count 3.85 x10^6/uL Hemoglobin 11.3 g/dL Hematocrit 34.2 % Mean Corpuscular Volume 89 fL Mean Corpuscular Hemoglobin 29 pg Mean Corpuscular Hemoglobin Concent 33 g/dL Red Cell Distribution Width 16.5 % Platelet Count 234 x10^3/uL Neutrophils (%) (Auto) 67 % Lymphocytes (%) (Auto) 19 % Monocytes (%) (Auto) 12 % Eosinophils (%) (Auto) 2 % Basophils (%) (Auto) 0 % Neutrophils # (Auto) 3.7 x10^3uL Lymphocytes # (Auto) 1.1 x10^3/uL Monocytes # (Auto) 0.7 x10^3/uL Eosinophils # (Auto) 0.1 x10^3/uL Basophils # (Auto) 0.0 x10^3/uL Sodium Level 141 mmol/L Potassium Level 4.7 mmol/L Chloride Level 103 mmol/L Carbon Dioxide Level 31 mmol/L Anion Gap 7 Blood Urea Nitrogen 31 mg/dL Creatinine 0.8 mg/dL Estimated GFR (Cockcroft-Gault) 69.6 BUN/Creatinine Ratio 39 Glucose Level 89 mg/dL Calcium Level 9.3 mg/dL Total Bilirubin 0.3 mg/dL Aspartate Amino Transf (AST/SGOT) 14 U/L Alanine Aminotransferase (ALT/SGPT) 13 U/L Alkaline Phosphatase 115 U/L Total Protein 6.6 g/dL Albumin 3.2 g/dL Albumin/Globulin Ratio 0.9 Current Medications Medications (Trade) Dose Ordered Sig/Ervin Route PRN Reason Start Time Stop Time Status Last Admin Dose Admin Ibuprofen (Motrin) 600 mg PRN Q6HRS PRN PO PAIN 08/02/21 16:45 08/03/21 16:14 DC 08/02/21 23:17 Levothyroxine Sodium (Synthroid) 75 mcg DAILY06 PO 08/03/21 06:00 08/21/21 05:37 Olanzapine (ZyPREXA) 5 mg PRN Q4HRS PRN PO AGITATION 08/02/21 16:45 08/02/21 22:47 DC Lactobacillus Rhamnosus (Culturelle) 1 cap DAILY PO 08/03/21 09:00 08/17/21 19:15 DC 08/15/21 08:31 Multi-Ingred Cream/Lotion/Oil/ Oint (Hydrocerin) 1 rachel BID TP 08/02/21 21:00 08/03/21 19:28 DC Mupirocin (Bactroban) 1 rachel DAILY TP 08/03/21 09:00 08/03/21 16:16 DC Acetaminophen (Tylenol) 650 mg PRN Q6HRS PRN PO MILD PAIN / TEMP > 100.3'F 08/02/21 16:45 08/17/21 05:38 Multi-Ingredient Ointment (Analgesic Avery) 1 rachel PRN QID PRN TP MUSCLE PAIN 08/02/21 16:45 Al Hydroxide/Mg Hydroxide (Mylanta Plus Xs) 15 ml PRN AFTMEALHC PRN PO DYSPEPSIA 08/02/21 16:45 Magnesium Hydroxide (Milk Of Magnesia) 2,400 mg PRN QHS PRN PO CONSTIPATION 08/02/21 16:45 Influenza Virus Vaccine Quadrival (Flulaval Quad Syringe) 0.5 ml ONCE ONCE VAX IM 08/02/21 19:00 08/02/21 19:01 DC 08/03/21 12:43 Olanzapine (ZyPREXA) 2.5 mg PRN Q2HRS PRN PO AGITATION 08/02/21 23:00 08/02/21 23:24 DC Olanzapine (ZyPREXA ZYDIS) 2.5 mg PRN Q2HR PRN PO PSYCHOSIS 08/02/21 23:30 08/18/21 04:53 Lactic Acid (Lac-Hydrin) 1 rachel BID TP 08/03/21 21:00 08/19/21 09:00 Multi-Ingred Cream/Lotion/Oil/ Oint (Hydrocerin) 1 rachel PRN BID PRN TP DRY SKIN 08/03/21 19:30 Mirtazapine (Remeron) 7.5 mg QHS PO 08/03/21 21:00 08/14/21 18:13 DC 08/13/21 20:04 Divalproex Sodium (Depakote Sprinkles) 500 mg QHS PO 08/03/21 21:00 08/10/21 17:54 DC 08/09/21 20:34 Trazodone HCl (Desyrel) 50 mg PRN QHS PRN PO INSOMNIA, MAY REPEAT X1 08/03/21 20:45 08/05/21 20:57 Risperidone (RisperDAL M) 0.5 mg DAILY PO 08/04/21 09:00 08/08/21 11:09 DC 08/07/21 09:52 Levofloxacin (Levaquin) 250 mg DAILY06 PO 08/07/21 06:00 08/16/21 22:00 DC 08/15/21 08:22 Risperidone (RisperDAL M) 0.75 mg QHS PO 08/06/21 21:00 08/14/21 18:13 DC 08/13/21 20:04 Divalproex Sodium (Depakote Sprinkles) 500 mg BID PO 08/10/21 21:00 08/12/21 08:29 DC 08/12/21 08:17 Valproic Acid (Depakene) 500 mg BID PO 08/12/21 21:00 08/20/21 21:00 Mirtazapine (Remeron) 15 mg QHS PO 08/14/21 21:00 08/19/21 20:15 Risperidone (RisperDAL M) 1 mg QHS PO 08/14/21 21:00 08/16/21 18:00 DC 08/15/21 21:09 Risperidone (RisperDAL M) 1.25 mg QHS PO 08/16/21 21:00 08/19/21 20:15 Risperidone (RisperDAL CONSTA) 25 mg Q2WKS IM 08/18/21 09:00 08/18/21 08:43 DC Risperidone (RisperDAL CONSTA) 25 mg Q2WKS IM 08/19/21 10:00 08/19/21 10:05 I have reviewed the current psychotropics carefully including drug interactions. Risk benefit ratio favors no change other than as noted in my dictated progress note. Diagnosis: Problems: (1) Schizoaffective disorder, bipolar type (2) Impulse control disorder, unspecified (3) Anxiety disorder, unspecified (4) Bipolar disorder, curr episode mixed, severe, with psychotic features ENOCH YBARRA MD Aug 21, 2021 07:52
[2021-08-21] MEDS: VALPROATE ACID 250 MG/5 ML ORAL SOLUTION PO SCH ×2 (08:23→20:09)
[2021-08-21] MEDS: AMMONIUM LACTATE 12% TOPICAL LOTION 226GM BOTTLE. TP SCH ×3 (08:26→20:10)
--- NOTE | 2021-08-21 10:35 | NUR ---
PT REFUSED TO TAKE LIQUID MEDICATION THIS AM IN THE DINING ROOM. PT STATED STAFF WOULD NEED TO "CALL HER TIE TAPE MACHINE OPERATOR" BEFORE SHE WOULD TAKE ANY MEDICATION. PT WENT BACK TO HER ROOM AFTER BREAKFAST AND THE MEDICATION WAS ADMINISTERED VIA SYRINGE. THREE STAFF MEMBERS WERE IN THE ROOM, BUT PT TOOK THE MEDICATION AFTER ONLY ASKING TWICE. PT REFUSED TO ANSWER ASSESSMENT QUESTIONS, THEN LATER SHOUTED THEM OUT FROM HER ROOM. PT STARTED TO RAMBLE ON IN THE DINING ROOM WHEN SHE WAS GETTING AGITATED ABOUT HER MEDICATION. PT USED THE RESTROOM AND WASHED HER HANDS INDEPENDENTLY THIS MORNING IN HER ROOM AFTER BREAKFAST.
--- NOTE | 2021-08-21 14:39 | NUR ---
[facility] Social Work Discharge Planning Form Patient Name JAIMEE DIEGO Admit Date: 02 August 2021 DISCHARGE PLAN Discharge Destination: Pt to discharge back to [facility] Care Assessment: N/A Level II Assessment: N/A Transportation: Facility to pick pt up between 1130 and 1200. Special Instructions/Notes: Please fax discharge orders, discharge medications and discharge summary to the fax number listed below. DISCHARGE TO FACILITY Facility: [facility] Address: [address] [place] [address]; [place] [address] Contact Name: DALE Castorena: Contact Name: Magali Brewster, Admissions: PCP: Arianne Diaz
[2021-08-21 15:36] VITALS: BP_SYST 110; BP_SYST 123; BP_DIAS 57; BP_DIAS 73
--- NOTE | 2021-08-21 17:09 | NUR ---
PARUL contacted pt dtr, Rachel, to let her know about pt discharge plan for tomorrow. PARUL went over the next date for pt injectible for September 02. PARUL informed pt dtr that the facility will take care of transportation which is scheduled around 1130. Pt dtr was thankful for pt care and will call nursing in the morning to ensure that everything with pt discharge goes as planned.
[2021-08-21] MEDS: risperiDONE ODT 1 MG TAB.RAPDIS. PO SCH (20:09)
[2021-08-21] MEDS: MIRTAZAPINE 15 MG TABLET PO SCH (20:09)
--- NOTE | 2021-08-21 20:15 | PDOC ---
Exam Note: Prasanna Note: Please also refer to the separate dictated note~for this date of service dictated separately.~Patient seen individually. Discussed the patient with Nursing staff reviewed the chart.~Reviewed interim history and current functioning. Reviewed vital signs,~Labs/ Radiology~and current medications noted below. Continue current treatment with the changes noted in the dictated addendum note Assessment: Vital Signs/I&O: Vital Signs Date Time Temp Pulse Resp B/P (MAP) Pulse Ox O2 Delivery O2 Flow Rate FiO2 08/21/21 15:36 97.5 85 18 110/57 (74) 97 08/21/21 05:58 Room Air I & O 08/20/21 08/20/21 08/21/21 15:00 23:00 07:00 Intake Total 740 ml 240 ml Balance 740 ml 240 ml Labs: Laboratory Tests Test 08/21/21 05:39 White Blood Count 5.6 x10^3/uL (4.0-11.0) Red Blood Count 3.85 x10^6/uL (3.50-5.40) Hemoglobin 11.3 g/dL (12.0-15.5) L Hematocrit 34.2 % (36.0-47.0) L Mean Corpuscular Volume 89 fL (79-100) Mean Corpuscular Hemoglobin 29 pg (25-35) Mean Corpuscular Hemoglobin Concent 33 g/dL (31-37) Red Cell Distribution Width 16.5 % (11.5-14.5) H Platelet Count 234 x10^3/uL (140-400) Neutrophils (%) (Auto) 67 % (31-73) Lymphocytes (%) (Auto) 19 % (24-48) L Monocytes (%) (Auto) 12 % (0-9) H Eosinophils (%) (Auto) 2 % (0-3) Basophils (%) (Auto) 0 % (0-3) Neutrophils # (Auto) 3.7 x10^3uL (1.8-7.7) Lymphocytes # (Auto) 1.1 x10^3/uL (1.0-4.8) Monocytes # (Auto) 0.7 x10^3/uL (0.0-1.1) Eosinophils # (Auto) 0.1 x10^3/uL (0.0-0.7) Basophils # (Auto) 0.0 x10^3/uL (0.0-0.2) Sodium Level 141 mmol/L (136-145) Potassium Level 4.7 mmol/L (3.5-5.1) Chloride Level 103 mmol/L (98-107) Carbon Dioxide Level 31 mmol/L (21-32) Anion Gap 7 (6-14) Blood Urea Nitrogen 31 mg/dL (7-20) H Creatinine 0.8 mg/dL (0.6-1.0) Estimated GFR (Cockcroft-Gault) 69.6 BUN/Creatinine Ratio 39 (6-20) H Glucose Level 89 mg/dL (70-99) Calcium Level 9.3 mg/dL (8.5-10.1) Total Bilirubin 0.3 mg/dL (0.2-1.0) Aspartate Amino Transferase (AST) 14 U/L (15-37) L Alanine Aminotransferase (ALT) 13 U/L (14-59) L Alkaline Phosphatase 115 U/L (46-116) Total Protein 6.6 g/dL (6.4-8.2) Albumin 3.2 g/dL (3.4-5.0) L Albumin/Globulin Ratio 0.9 (1.0-1.7) L Thyroid Stimulating Hormone (TSH) 79.898 uIU/mL (0.358-3.740) Current Medications: Meds: Laboratory Tests Test 08/21/21 05:39 White Blood Count 5.6 x10^3/uL Red Blood Count 3.85 x10^6/uL Hemoglobin 11.3 g/dL Hematocrit 34.2 % Mean Corpuscular Volume 89 fL Mean Corpuscular Hemoglobin 29 pg Mean Corpuscular Hemoglobin Concent 33 g/dL Red Cell Distribution Width 16.5 % Platelet Count 234 x10^3/uL Neutrophils (%) (Auto) 67 % Lymphocytes (%) (Auto) 19 % Monocytes (%) (Auto) 12 % Eosinophils (%) (Auto) 2 % Basophils (%) (Auto) 0 % Neutrophils # (Auto) 3.7 x10^3uL Lymphocytes # (Auto) 1.1 x10^3/uL Monocytes # (Auto) 0.7 x10^3/uL Eosinophils # (Auto) 0.1 x10^3/uL Basophils # (Auto) 0.0 x10^3/uL Sodium Level 141 mmol/L Potassium Level 4.7 mmol/L Chloride Level 103 mmol/L Carbon Dioxide Level 31 mmol/L Anion Gap 7 Blood Urea Nitrogen 31 mg/dL Creatinine 0.8 mg/dL Estimated GFR (Cockcroft-Gault) 69.6 BUN/Creatinine Ratio 39 Glucose Level 89 mg/dL Calcium Level 9.3 mg/dL Total Bilirubin 0.3 mg/dL Aspartate Amino Transf (AST/SGOT) 14 U/L Alanine Aminotransferase (ALT/SGPT) 13 U/L Alkaline Phosphatase 115 U/L Total Protein 6.6 g/dL Albumin 3.2 g/dL Albumin/Globulin Ratio 0.9 Thyroid Stimulating Hormone (TSH) 79.898 uIU/mL Current Medications Medications (Trade) Dose Ordered Sig/Ervin Route PRN Reason Start Time Stop Time Status Last Admin Dose Admin Ibuprofen (Motrin) 600 mg PRN Q6HRS PRN PO PAIN 08/02/21 16:45 08/03/21 16:14 DC 08/02/21 23:17 Levothyroxine Sodium (Synthroid) 75 mcg DAILY06 PO 08/03/21 06:00 08/21/21 05:37 Olanzapine (ZyPREXA) 5 mg PRN Q4HRS PRN PO AGITATION 08/02/21 16:45 08/02/21 22:47 DC Lactobacillus Rhamnosus (Culturelle) 1 cap DAILY PO 08/03/21 09:00 08/17/21 19:15 DC 08/15/21 08:31 Multi-Ingred Cream/Lotion/Oil/ Oint (Hydrocerin) 1 rachel BID TP 08/02/21 21:00 08/03/21 19:28 DC Mupirocin (Bactroban) 1 rachel DAILY TP 08/03/21 09:00 08/03/21 16:16 DC Acetaminophen (Tylenol) 650 mg PRN Q6HRS PRN PO MILD PAIN / TEMP > 100.3'F 08/02/21 16:45 08/17/21 05:38 Multi-Ingredient Ointment (Analgesic Rodeo) 1 rachel PRN QID PRN TP MUSCLE PAIN 08/02/21 16:45 Al Hydroxide/Mg Hydroxide (Mylanta Plus Xs) 15 ml PRN AFTMEALHC PRN PO DYSPEPSIA 08/02/21 16:45 Magnesium Hydroxide (Milk Of Magnesia) 2,400 mg PRN QHS PRN PO CONSTIPATION 08/02/21 16:45 Influenza Virus Vaccine Quadrival (Flulaval Quad Syringe) 0.5 ml ONCE ONCE VAX IM 08/02/21 19:00 08/02/21 19:01 DC 08/03/21 12:43 Olanzapine (ZyPREXA) 2.5 mg PRN Q2HRS PRN PO AGITATION 08/02/21 23:00 08/02/21 23:24 DC Olanzapine (ZyPREXA ZYDIS) 2.5 mg PRN Q2HR PRN PO PSYCHOSIS 08/02/21 23:30 08/21/21 16:57 Lactic Acid (Lac-Hydrin) 1 rachel BID TP 08/03/21 21:00 08/21/21 20:10 Multi-Ingred Cream/Lotion/Oil/ Oint (Hydrocerin) 1 rachel PRN BID PRN TP DRY SKIN 08/03/21 19:30 Mirtazapine (Remeron) 7.5 mg QHS PO 08/03/21 21:00 08/14/21 18:13 DC 08/13/21 20:04 Divalproex Sodium (Depakote Sprinkles) 500 mg QHS PO 08/03/21 21:00 08/10/21 17:54 DC 08/09/21 20:34 Trazodone HCl (Desyrel) 50 mg PRN QHS PRN PO INSOMNIA, MAY REPEAT X1 08/03/21 20:45 08/05/21 20:57 Risperidone (RisperDAL M) 0.5 mg DAILY PO 08/04/21 09:00 08/08/21 11:09 DC 08/07/21 09:52 Levofloxacin (Levaquin) 250 mg DAILY06 PO 08/07/21 06:00 08/16/21 22:00 DC 08/15/21 08:22 Risperidone (RisperDAL M) 0.75 mg QHS PO 08/06/21 21:00 08/14/21 18:13 DC 08/13/21 20:04 Divalproex Sodium (Depakote Sprinkles) 500 mg BID PO 08/10/21 21:00 08/12/21 08:29 DC 08/12/21 08:17 Valproic Acid (Depakene) 500 mg BID PO 08/12/21 21:00 08/21/21 20:09 Mirtazapine (Remeron) 15 mg QHS PO 08/14/21 21:00 08/21/21 20:09 Risperidone (RisperDAL M) 1 mg QHS PO 08/14/21 21:00 08/16/21 18:00 DC 08/15/21 21:09 Risperidone (RisperDAL M) 1.25 mg QHS PO 08/16/21 21:00 08/21/21 20:09 Risperidone (RisperDAL CONSTA) 25 mg Q2WKS IM 08/18/21 09:00 08/18/21 08:43 DC Risperidone (RisperDAL CONSTA) 25 mg Q2WKS IM 08/19/21 10:00 08/19/21 10:05 I have reviewed the current psychotropics carefully including drug interactions. Risk benefit ratio favors no change other than as noted in my dictated progress note. Diagnosis: Problems: (1) Schizoaffective disorder, bipolar type (2) Impulse control disorder, unspecified (3) Anxiety disorder, unspecified (4) Bipolar disorder, curr episode mixed, severe, with psychotic features ENOCH YBARRA MD Aug 21, 2021 20:15
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
[2021-08-22] MEDS ORDERED: AMMO225L5 TP (00:29)
[2021-08-22] MEDS ORDERED: ACET325T9 PO (00:30)
[2021-08-22] MEDS ORDERED: MAGN24003 PO (00:34)
[2021-08-22] MEDS ORDERED: MAG-124 PO (00:35)
[2021-08-22] MEDS ORDERED: METH57CR17 TP (00:37)
[2021-08-22] MEDS ORDERED: VALP250S3 PO (00:38)
[2021-08-22] MEDS ORDERED: MIRT-37 PO (00:38)
[2021-08-22] MEDS ORDERED: RISP25DI IM (00:39)
[2021-08-22] MEDS ORDERED: RISP1TAB PO (00:41)
[2021-08-22] MEDS ORDERED: TRAZ-120 PO (00:42)
[2021-08-22] MEDS: LEVOTHYROXINE 75 MCG TABLET PO SCH (05:05)
[2021-08-22 06:24] VITALS: BP 112/73
[2021-08-22] MEDS: VALPROATE ACID 250 MG/5 ML ORAL SOLUTION PO SCH (08:13)
--- NOTE | 2021-08-22 08:59 | NUR ---
Pt present and visible on the unit. She was compliant with medications administered SL and did not provide resistance. During breakfast she became elevated in verbal aggression towards [employer], PRN Zyprexa 2.5 mg SL administered. She does not interact with other patients and will only interact with staff when it's concerning something she is demanding. Plan of care continues, preparing for d/c.
[2021-08-22] MEDS: AMMONIUM LACTATE 12% TOPICAL LOTION 226GM BOTTLE. TP SCH (09:00)
--- NOTE | 2021-08-22 11:27 | NUR ---
Transition Record was faxed to follow-up provider with the following elements: Reason for admission, procedures, tests, principal diagnosis, pending studies, patient instructions, 27/04 contact information for unit, phone number to obtain pending test results, plan for follow-up care, physician follow-up, advanced directive information, and medication list with dose, duration and instructions. This information was included in the following documents: History and physical, lab results, study results, progress notes, social work planning form, DC instruction form, patient visit summary, and medication reconciliation form. Date & time record faxed: 08/22/21 0111 Record faxed to: [facility] ([phone]) Record discussed with/ report given to: Diamond SWIFT at [facility] ( )
--- NOTE | 2021-08-22 20:42 | PDOC ---
Exam Note: Prasanna Note: Please also refer to the separate dictated note~for this date of service dictated separately.~Patient seen individually. Discussed the patient with Nursing staff reviewed the chart.~Reviewed interim history and current functioning. Reviewed vital signs,~Labs/ Radiology~and current medications noted below. Continue current treatment with the changes noted in the dictated addendum note Assessment: Vital Signs/I&O: Vital Signs Date Time Temp Pulse Resp B/P (MAP) Pulse Ox O2 Delivery O2 Flow Rate FiO2 08/22/21 06:24 98.1 83 20 112/73 (86) 94 08/21/21 05:58 Room Air I & O 08/21/21 08/21/21 08/22/21 15:00 23:00 07:00 Intake Total 480 ml 170 ml Balance 480 ml 170 ml Current Medications: Meds: Current Medications Medications (Trade) Dose Ordered Sig/Ervin Route PRN Reason Start Time Stop Time Status Last Admin Dose Admin Ibuprofen (Motrin) 600 mg PRN Q6HRS PRN PO PAIN 08/02/21 16:45 08/03/21 16:14 DC 08/02/21 23:17 Levothyroxine Sodium (Synthroid) 75 mcg DAILY06 PO 08/03/21 06:00 08/22/21 11:31 DC 08/22/21 05:05 Olanzapine (ZyPREXA) 5 mg PRN Q4HRS PRN PO AGITATION 08/02/21 16:45 08/02/21 22:47 DC Lactobacillus Rhamnosus (Culturelle) 1 cap DAILY PO 08/03/21 09:00 08/17/21 19:15 DC 08/15/21 08:31 Multi-Ingred Cream/Lotion/Oil/ Oint (Hydrocerin) 1 rachel BID TP 08/02/21 21:00 08/03/21 19:28 DC Mupirocin (Bactroban) 1 rachel DAILY TP 08/03/21 09:00 08/03/21 16:16 DC Acetaminophen (Tylenol) 650 mg PRN Q6HRS PRN PO MILD PAIN / TEMP > 100.3'F 08/02/21 16:45 08/22/21 11:31 DC 08/17/21 05:38 Multi-Ingredient Ointment (Analgesic [place]) 1 rachel PRN QID PRN TP MUSCLE PAIN 08/02/21 16:45 08/22/21 11:31 DC Al Hydroxide/Mg Hydroxide (Mylanta Plus Xs) 15 ml PRN AFTMEALHC PRN PO DYSPEPSIA 08/02/21 16:45 08/22/21 11:31 DC Magnesium Hydroxide (Milk Of Magnesia) 2,400 mg PRN QHS PRN PO CONSTIPATION 08/02/21 16:45 08/22/21 11:31 DC Influenza Virus Vaccine Quadrival (Flulaval Quad Syringe) 0.5 ml ONCE ONCE VAX IM 08/02/21 19:00 08/02/21 19:01 DC 08/03/21 12:43 Olanzapine (ZyPREXA) 2.5 mg PRN Q2HRS PRN PO AGITATION 08/02/21 23:00 08/02/21 23:24 DC Olanzapine (ZyPREXA ZYDIS) 2.5 mg PRN Q2HR PRN PO PSYCHOSIS 08/02/21 23:30 08/22/21 11:31 DC 08/22/21 08:13 Lactic Acid (Lac-Hydrin) 1 rachel BID TP 08/03/21 21:00 08/22/21 11:31 DC 08/21/21 20:10 Multi-Ingred Cream/Lotion/Oil/ Oint (Hydrocerin) 1 rachel PRN BID PRN TP DRY SKIN 08/03/21 19:30 08/22/21 11:31 DC Mirtazapine (Remeron) 7.5 mg QHS PO 08/03/21 21:00 08/14/21 18:13 DC 08/13/21 20:04 Divalproex Sodium (Depakote Sprinkles) 500 mg QHS PO 08/03/21 21:00 08/10/21 17:54 DC 08/09/21 20:34 Trazodone HCl (Desyrel) 50 mg PRN QHS PRN PO INSOMNIA, MAY REPEAT X1 08/03/21 20:45 08/22/21 11:31 DC 08/05/21 20:57 Risperidone (RisperDAL M) 0.5 mg DAILY PO 08/04/21 09:00 08/08/21 11:09 DC 08/07/21 09:52 Levofloxacin (Levaquin) 250 mg DAILY06 PO 08/07/21 06:00 08/16/21 22:00 DC 08/15/21 08:22 Risperidone (RisperDAL M) 0.75 mg QHS PO 08/06/21 21:00 08/14/21 18:13 DC 08/13/21 20:04 Divalproex Sodium (Depakote Sprinkles) 500 mg BID PO 08/10/21 21:00 08/12/21 08:29 DC 08/12/21 08:17 Valproic Acid (Depakene) 500 mg BID PO 08/12/21 21:00 08/22/21 11:31 DC 08/22/21 08:13 Mirtazapine (Remeron) 15 mg QHS PO 08/14/21 21:00 08/22/21 11:31 DC 08/21/21 20:09 Risperidone (RisperDAL M) 1 mg QHS PO 08/14/21 21:00 08/16/21 18:00 DC 08/15/21 21:09 Risperidone (RisperDAL M) 1.25 mg QHS PO 08/16/21 21:00 08/22/21 11:32 DC 08/21/21 20:09 Risperidone (RisperDAL CONSTA) 25 mg Q2WKS IM 08/18/21 09:00 08/18/21 08:43 DC Risperidone (RisperDAL CONSTA) 25 mg Q2WKS IM 08/19/21 10:00 08/22/21 11:32 DC 08/19/21 10:05 I have reviewed the current psychotropics carefully including drug interactions. Risk benefit ratio favors no change other than as noted in my dictated progress note. Diagnosis: Problems: (1) Impulse control disorder, unspecified (2) Anxiety disorder, unspecified (3) Bipolar disorder, curr episode mixed, severe, with psychotic features (4) Schizoaffective disorder, bipolar type ENOCH YBARRA MD Aug 22, 2021 20:42
--- NOTE | 2021-08-22 22:06 | DS ---
DATE OF DISCHARGE: 08/22/2021 DISCHARGE SUMMARY/PSYCHIATRIC PROGRESS NOTE This note covers elements not covered in my initial note 08/22. IDENTIFYING DATA: The patient is a 75-year-old female referred to us from [facility] on account of an acute exacerbation of her schizoaffective disorder, bipolar type with psychotic features. She has been increasingly agitated, attempting to elope, resistive with cares and ADLs, yelling at staff, layering her clothes. Behaviors were deemed unmanageable at the facility, had failed outpatient psychiatric interventions resulting in this referral. SIGNIFICANT FINDINGS AND CLINICAL COURSE: Following admission, the patient seen daily individually by myself from a psychiatric standpoint, medical followup with Dr. Nam/Dr. Phelps. The patient's TSH at admission was approximately over [address] Nam and Dr. Phelps restarted her Synthroid and adjusted this. Prior to discharge. repeat TSH was 79.89. Following admission, the patient appeared quite depressed, anxious, irritable, labile in her mood and being hard of hearing, or at least with selective hearing, only made the communication worse. She is also quite paranoid and psychotic. Adjustments were made in her psychotropic. She was very resistive to taking her psychotropics and at the daughter's request being the DPOA we started her on Risperdal Consta 25 mg IM every 2 weeks. She has maintained on Risperdal oral 1.25 mg at bedtime with a plan that once the Consta is stable in about 2-3 weeks, the oral could be tapered. She is also on Depakene 500 mg b.i.d., valproic acid level therapeutic at 80. Remeron 15 mg at bedtime, trazodone 50 mg at bedtime p.r.n. insomnia, may repeat x1, Zyprexa p.r.n. REVIEW OF SYSTEMS: Prior to discharge, hard of hearing, impaired ambulation with walker. No CV, , pulmonary, eye system symptoms on review. MENTAL STATUS EXAMINATION: Oriented to herself, situation. Speech is coherent, has some latency. Abstraction fair. Computation impaired. Language function intact. Attention span short. Mood and affect remain somewhat withdrawn, but improved, less paranoid. LABORATORY DATA: Reviewed. FINAL DIAGNOSES: Schizoaffective disorder, bipolar type, mixed with psychotic features; anxiety disorder, unspecified; impulse control disorder, unspecified. Rest unchanged from admission. DISCHARGE MEDICATIONS: Please refer to the MRAD. DISCHARGE INSTRUCTIONS: Outpatient psychiatric and medical followup at the long term and she needs close followup on stabilizing her hypothyroidism. Time for discharge day management greater than [address]: Sarahi TID: [id number]
--- NOTE | 2021-08-23 09:49 | PDOC ---
Exam Note: Prasanna Note: This note is a late entry for 08/21/2021 covers elements not covered in my initial note. Subjective: The patient was seen individually in the evening of 08/21/2021 with Delmis SWIFT, discussed and reviewed the chart. The patient slept 5 hours previous night. She refused her Depakene and had to be syringed later and yet later she was agitated and received Zyprexa through a syringe. TSH is 79.8. We will defer to Dr. Nam. Review of Systems: Impaired ambulation. She is hard of hearing. No CV, , pulmonary, eye system symptoms on review. Mental Status Exam: The patient is oriented to herself and situation. I met with her in her room. Speech has some latency, coherent. Abstraction fair. Computation impaired. Language function intact. Mood and affect still depressed. Laboratory Data: Reviewed. Impression: Schizoaffective disorder bipolar type with psychotic features. Anxiety disorder unspecified. Impulse control disorder unspecified. Plan: We will transition her back to the intermediate on 08/22 if she continues with stability. Assessment: Vital Signs/I&O: Vital Signs Date Time Temp Pulse Resp B/P (MAP) Pulse Ox O2 Delivery O2 Flow Rate FiO2 08/22/21 06:24 98.1 83 20 112/73 (86) 94 08/21/21 05:58 Room Air I & O 08/22/21 08/22/21 08/23/21 15:00 23:00 07:00 Intake Total 620 ml Balance 620 ml Current Medications: Meds: Current Medications Medications (Trade) Dose Ordered Sig/Ervin Route PRN Reason Start Time Stop Time Status Last Admin Dose Admin Ibuprofen (Motrin) 600 mg PRN Q6HRS PRN PO PAIN 08/02/21 16:45 08/03/21 16:14 DC 08/02/21 23:17 Levothyroxine Sodium (Synthroid) 75 mcg DAILY06 PO 08/03/21 06:00 08/22/21 11:31 DC 08/22/21 05:05 Olanzapine (ZyPREXA) 5 mg PRN Q4HRS PRN PO AGITATION 08/02/21 16:45 08/02/21 22:47 DC Lactobacillus Rhamnosus (Culturelle) 1 cap DAILY PO 08/03/21 09:00 08/17/21 19:15 DC 08/15/21 08:31 Multi-Ingred Cream/Lotion/Oil/ Oint (Hydrocerin) 1 rachel BID TP 08/02/21 21:00 08/03/21 19:28 DC Mupirocin (Bactroban) 1 rachel DAILY TP 08/03/21 09:00 08/03/21 16:16 DC Acetaminophen (Tylenol) 650 mg PRN Q6HRS PRN PO MILD PAIN / TEMP > 100.3'F 08/02/21 16:45 08/22/21 11:31 DC 08/17/21 05:38 Multi-Ingredient Ointment (Analgesic [place]) 1 rachel PRN QID PRN TP MUSCLE PAIN 08/02/21 16:45 08/22/21 11:31 DC Al Hydroxide/Mg Hydroxide (Mylanta Plus Xs) 15 ml PRN AFTMEALHC PRN PO DYSPEPSIA 08/02/21 16:45 08/22/21 11:31 DC Magnesium Hydroxide (Milk Of Magnesia) 2,400 mg PRN QHS PRN PO CONSTIPATION 08/02/21 16:45 08/22/21 11:31 DC Influenza Virus Vaccine Quadrival (Flulaval Quad [id number] Syringe) 0.5 ml ONCE ONCE VAX IM 08/02/21 19:00 08/02/21 19:01 DC 08/03/21 12:43 Olanzapine (ZyPREXA) 2.5 mg PRN Q2HRS PRN PO AGITATION 08/02/21 23:00 08/02/21 23:24 DC Olanzapine (ZyPREXA ZYDIS) 2.5 mg PRN Q2HR PRN PO PSYCHOSIS 08/02/21 23:30 08/22/21 11:31 DC 08/22/21 08:13 Lactic Acid (Lac-Hydrin) 1 rachel BID TP 08/03/21 21:00 08/22/21 11:31 DC 08/21/21 20:10 Multi-Ingred Cream/Lotion/Oil/ Oint (Hydrocerin) 1 rachel PRN BID PRN TP DRY SKIN 08/03/21 19:30 08/22/21 11:31 DC Mirtazapine (Remeron) 7.5 mg QHS PO 08/03/21 21:00 08/14/21 18:13 DC 08/13/21 20:04 Divalproex Sodium (Depakote Sprinkles) 500 mg QHS PO 08/03/21 21:00 08/10/21 17:54 DC 08/09/21 20:34 Trazodone HCl (Desyrel) 50 mg PRN QHS PRN PO INSOMNIA, MAY REPEAT X1 08/03/21 20:45 08/22/21 11:31 DC 08/05/21 20:57 Risperidone (RisperDAL M) 0.5 mg DAILY PO 08/04/21 09:00 08/08/21 11:09 DC 08/07/21 09:52 Levofloxacin (Levaquin) 250 mg DAILY06 PO 08/07/21 06:00 08/16/21 22:00 DC 08/15/21 08:22 Risperidone (RisperDAL M) 0.75 mg QHS PO 08/06/21 21:00 08/14/21 18:13 DC 08/13/21 20:04 Divalproex Sodium (Depakote Sprinkles) 500 mg BID PO 08/10/21 21:00 08/12/21 08:29 DC 08/12/21 08:17 Valproic Acid (Depakene) 500 mg BID PO 08/12/21 21:00 08/22/21 11:31 DC 08/22/21 08:13 Mirtazapine (Remeron) 15 mg QHS PO 08/14/21 21:00 08/22/21 11:31 DC 08/21/21 20:09 Risperidone (RisperDAL M) 1 mg QHS PO 08/14/21 21:00 08/16/21 18:00 DC 08/15/21 21:09 Risperidone (RisperDAL M) 1.25 mg QHS PO 08/16/21 21:00 08/22/21 11:32 DC 08/21/21 20:09 Risperidone (RisperDAL CONSTA) 25 mg Q2WKS IM 08/18/21 09:00 08/18/21 08:43 DC Risperidone (RisperDAL CONSTA) 25 mg Q2WKS IM 08/19/21 10:00 08/22/21 11:32 DC 08/19/21 10:05 I have reviewed the current psychotropics carefully including drug interactions. Risk benefit ratio favors no change other than as noted in my dictated progress note. Diagnosis: Problems: (1) Impulse control disorder, unspecified (2) Anxiety disorder, unspecified (3) Bipolar disorder, curr episode mixed, severe, with psychotic features (4) Schizoaffective disorder, bipolar type ENOCH YBARRA MD Aug 23, 2021 09:49
== END 2021-08-22 11:31 | DRG 885 ==
LOC: GEROPSY 08-02 16:24
PROVIDERS: ADMIT Psychiatry & Neurology Psychiatry; ATTEND Psychiatry & Neurology Psychiatry
DX: F25.0 Schizoaffective disorder, bipolar type (principal); N39.0 Urinary tract infection, site not specified; E03.9 Hypothyroidism, unspecified; F03.90 Unspecified dementia, unspecified severity, without behavioral disturbance, psychotic disturbance, mood disturbance, and anxiety; F41.9 Anxiety disorder, unspecified; F63.9 Impulse disorder, unspecified; R29.6 Repeated falls; Z79.899 Other long term (current) drug therapy; Z90.710 Acquired absence of both cervix and uterus; Z20.822 Contact with and (suspected) exposure to COVID-19
CPT/HCPCS: 36415; 70450; 72170; 80053; 80061; 80164; 81001; 82140; 82306; 82607; 83036; 83540; 83550; 83735; 84436; 84439; 84443; 84480; 84481; 85025; 85379; 85651; 86592; 87077; 87086; 87186; 90471; 90686; 93005; J2794; U0003; 97530